=== PATIENT | male | born 1935 | race Caucasian/White ===

== ENCOUNTER 2023-07-11 09:03 | Outpatient (CLI) | payer MEDICARE, BC, SELFPAY | END 2023-07-11 09:04 | disposition home or self-care (01) | LOC: AMB 07-12 11:31 | PROVIDERS: Visit Provider Family Medicine | DX: R41.82 Altered mental status, unspecified (principal); R53.1 Weakness; I10 Essential (primary) hypertension | CPT/HCPCS: A0425; A0427; A0428 ==

== ENCOUNTER 2023-07-11 09:44 | Emergency (ER) | payer MEDICARE, BC, SELFPAY ==
[2023-07-11] VITALS (20 sets, daily range): BP systolic 98–184; BP diastolic 66–123; PULSE 57–69; RESP 14; TEMP 36.1; O2SAT 94–100; BMI 24.8
--- NOTE | 2023-07-11 09:38 | ED.FALL ---
HPI - Fall General Time Seen by Provider: 09:38 Date Seen: 07/11/23 Chief Complaint: Fall/Minor Trauma Stated Complaint: Fall Source: patient, EMS and RN notes reviewed Mode of arrival: EMS Limitations: no limitations History of Present Illness HPI Narrative: This patient is an 87-year-old male brought in by EMS from [address] [place] [address] where he recently came in for fall. Patient does not remember any reason for the fall, states he woke up against the wall and does not remember events. Staff found him down at 5:00 a.m. this morning. He was sent later because they found his pulse to be low in the 30s. Denied any injury to staff after the fall, they did not find any injury this morning. EMS in route on their intake found no pertinent positives for any injury. There was question of loss of consciousness with the fall but he has been at his baseline reportedly. He is denying any pain anywhere, was able to give EMS his prior address where he lived at before going in to the retirement. He was hospitalized [id number] at [facility] for falls, delirium/change in mental status. He was reportedly admitted to the hospital for foot pain and falls, neuro imaging and x-ray imaging were all negative. Looking at his records, he has longstanding bilateral foot pain, evaluation with Neurology in October 2021 thought to be neuropathic pain. He does have underlying restless leg syndrome. 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 He states he was put in the hospital for hypertension. Patient does have underlying Parkinson's disease. He has also had hypertension, history of heart failure with preserved ejection fraction. MD complaint: fall Related Data Home Medications Medication Instructions Recorded Confirmed ascorbic acid (vitamin C) 500 mg 500 mg PO DAILY 07/11/23 07/11/23 chewable tablet (Acerola C) atorvastatin 40 mg tablet 40 mg PO DAILY 07/11/23 07/11/23 carbidopa 25 mg-levodopa 100 mg 2.5 tab PO 3XW 07/11/23 07/11/23 tablet carbidopa ER 50 mg-levodopa 200 mg 1 tab PO QPM 07/11/23 07/11/23 tablet,extended release cholecalciferol (vitamin D3) 10 10 mcg PO DAILY 07/11/23 07/11/23 mcg (400 unit) capsule duloxetine 30 mg capsule,delayed 30 mg PO DAILY 07/11/23 07/11/23 release erythromycin 5 mg/gram (0.5 %) eye 1 applic ophthalmic (eye) QPM 07/11/23 07/11/23 ointment loratadine 10 mg tablet 10 mg PO DAILY 07/11/23 07/11/23 (Allerclear) losartan 25 mg tablet 25 mg PO DAILY 07/11/23 07/11/23 metoprolol succinate 25 mg 25 mg PO DAILY 07/11/23 07/11/23 tablet,extended release 24 hr nitroglycerin 0.4 mg sublingual 0.4 mg sublingual 07/11/23 tablet pramipexole 0.5 mg tablet 0.5 mg PO QPM 07/11/23 07/11/23 pregabalin 25 mg capsule 25 mg PO DAILY 07/11/23 07/11/23 pregabalin 50 mg capsule 50 mg PO QPM 07/11/23 07/11/23 spironolactone 25 mg tablet 25 mg PO DAILY 07/11/23 07/11/23 torsemide 10 mg tablet 5 mg PO DAILY 07/11/23 07/11/23 Allergies Allergy/AdvReac Type Severity Reaction Status Date / Time No Known Drug Allergies Allergy Verified 07/11/23 09:46 Review of Systems Status of ROS: Reports: 6 or more systems reviewed and unremarkable except as noted in History and below [facility] Social History service: Yes Exam Const: Vital Signs, click to edit/add: Vital Signs - 24 hr 07/11/23 09:39 07/11/23 09:39 07/11/23 10:11 Temperature 96.9 F L Pulse Rate 63 Pulse Rate [Apical ] 69 Respiratory Rate 14 Blood Pressure Blood Pressure [Ri ght Upper Arm] 184/110 H Pulse Oximetry 100 100 98 Oxygen Delivery Me thod Room Air 07/11/23 10:12 07/11/23 10:15 07/11/23 10:22 Temperature Pulse Rate 61 68 63 Pulse Rate [Apical ] Respiratory Rate Blood Pressure 167/95 H 159/102 H Blood Pressure [Ri ght Upper Arm] Pulse Oximetry 98 100 98 Oxygen Delivery Me thod 07/11/23 10:32 07/11/23 10:42 07/11/23 10:52 Temperature Pulse Rate Pulse Rate [Apical ] Respiratory Rate Blood Pressure 168/108 H 171/105 H 169/102 H Blood Pressure [Ri ght Upper Arm] Pulse Oximetry Oxygen Delivery Me thod 07/11/23 11:02 07/11/23 11:12 07/11/23 11:21 Temperature Pulse Rate Pulse Rate [Apical ] Respiratory Rate Blood Pressure 164/106 H 126/85 98/66 Blood Pressure [Ri ght Upper Arm] Pulse Oximetry Oxygen Delivery Me thod 07/11/23 11:32 07/11/23 11:42 07/11/23 11:43 Temperature Pulse Rate 62 62 Pulse Rate [Apical ] Respiratory Rate Blood Pressure 149/81 H 163/97 H Blood Pressure [Ri ght Upper Arm] Pulse Oximetry 99 100 Oxygen Delivery Me thod 07/11/23 11:45 Temperature Pulse Rate 57 L Pulse Rate [Apical ] Respiratory Rate Blood Pressure Blood Pressure [Ri ght Upper Arm] Pulse Oximetry 98 Oxygen Delivery Me thod 87-year-old male is alert, interactive, no apparent distress. Conjugate gaze, face is atraumatic. Speech is somewhat slow. This would not be inconsistent with what I would expect for Parkinson's. He has a masked face. With assistance, am able to sit him up, no midline tenderness of his neck or back, does have kyphosis. Lungs are clear, good air entry, no wheezing or crackles. CV with some ectopy but regular, no significant murmur, normal S1 and S2. No chest wall tenderness, abdomen is soft, non distended, nontender, no organomegaly. Has an abrasion on his right arm that looks to be old and somewhat scabbed, does not appear new. I do not see any acute wounds on arms or legs. Exam is nonfocal, no localized weakness. See no tremors her baseline at this time. See on the ekg monitor that is already been placed that he has a wide complex appearing QRS. Documenting provider has reviewed patient's vital signs: yes Course Course ED Course: Will obtain head and neck imaging, chest x-ray to ensure no acute pathology. This sounds like it is a Parkinson's patient that is at risk for falls. Details are not known in there was question of loss of consciousness. He is not on blood thinners but will proceed with head imaging. Will get complement of labs, have him on cardiac monitoring and pulse oximetry here. Will get an EKG. Insure no acute metabolic or causative etiology for the fall. Reevaluation(s) Time of Reevaluation #1: 11:58 Reevaluation #1: Patient's and family members are present. Reviewed with him that the head CT, cervical spine CT and labs are all reassuring. No acute changes. He obviously has some degenerative changes on the cervical spine, degenerative changes on his head CT. The retirement got a reported pulse of 39 or 38 per his daughter. That is why he was sent. We have seen no evidence of any significant bradycardia. He does go into the upper 50s but there is nothing slower than that while he has been monitored here over the last few hours. They would be interested in doing a Holter monitor which I can see if Radiology can get set up. His describes probable left bundle branch block but she is not definitive. I did contact pam hood RN in [place] triage center. She is able to confirm that he did have left bundle-branch block on an EKG from March of this year at [place]. They wonder if he can continue with physical therapy. He certainly can. We did discuss that he has a right posterior 4th rib fracture on his chest x-ray. He has had no complaints of pain here today when you ask him, same for EMS. He had falls last week it is possible that it could have been from that fall. Family does not believe he had a chest x-ray at [place]. He did not have any pain when I palpated over his back earlier. Right now when I am with him, he states he has pain throughout the whole right back when I palpate on the chest wall. Right after that I ask him if he has pain anywhere when he is resting and he states Stewart absolutely not. They have noted some lability with his blood pressures while here, reviewed with them that is not something that needs to be emergently dealt with. We have seen nothing that is requiring any emergent intervention. Daughter notes that he has been talking to them about having a vivid dream, thinking he was home. They think he may have possibly had some dream enactment. Would have them discuss this with his neurologist as this is out of the scope of the ED. this time, plan is to have him go back to the retirement with Holter monitoring. Return for further issues. Vital Signs Vital signs: Initial Vital Signs Temperature 96.9 F L 07/11/23 09:39 Temperature Source Temporal Artery Scan 07/11/23 09:39 Pulse Rate 69 07/11/23 09:39 Respiratory Rate 14 07/11/23 09:39 Blood Pressure 184/110 H 07/11/23 09:39 Blood Pressure Mean 134 H 07/11/23 09:39 Pulse Oximetry 100 07/11/23 09:39 Oxygen Delivery Method Room Air 07/11/23 09:39 Vital Signs Temperature 96.9 F L 07/11/23 09:39 Pulse Rate 69 07/11/23 09:39 Respiratory Rate 14 07/11/23 09:39 Blood Pressure 184/110 H 07/11/23 09:39 Pulse Oximetry 100 07/11/23 09:39 Oxygen Delivery Method Room Air 07/11/23 09:39 Temperature 96.9 F L 07/11/23 09:39 Pulse Rate 57 L 07/11/23 11:45 Respiratory Rate 14 07/11/23 09:39 Blood Pressure 163/97 H 07/11/23 11:42 Pulse Oximetry 98 07/11/23 11:45 Oxygen Delivery Method Room Air 07/11/23 09:39 - Fall Lab Data Attestation: I reviewed the patient's lab results. Labs: Lab Results 07/11/23 07/11/23 Range/Units 09:40 09:45 WBC 7.90 (4.50-11.00) K/uL RBC 4.66 (4.30-5.90) m/uL Hgb 13.6 (13.5-17.5) gm/dL Hct 44.1 (37.0-53.0) % MCV 95 (80-100) fL MCH 29 (26-34) pg MCHC 31 L (32-36) gm/dL RDW Coeff of Lidya 12.6 (11.5-15.5) % Plt Count 218 (140-440) K/uL Neut % (Auto) 47.0 (42.0-72.0) % Lymph % (Auto) 39.9 (20-44) % Powell % (Auto) 9.5 (0.0-11.0) % Eos % (Auto) 3.0 (0.0-7.0) % Baso % (Auto) 0.5 (0.0-3.0) % Neut # (Auto) 3.71 (1.7-7.0) K/uL Lymph # (Auto) 3.15 H (0.90-2.90) K/uL Powell # (Auto) 0.80 (0.00-0.90) K/UL Eos # (Auto) 0.24 (0.00-0.50) K/uL Baso # (Auto) 0.04 (0.00-0.30) K/uL Abs Immat Gran (auto) 0.01 (0.00-0.30) K/uL Imm/Tot Granulo (auto) 0.1 % Sodium 139 (135-149) mmol/L Potassium 4.7 (3.6-5.1) mmol/L Chloride 103 (96-114) mmol/L Carbon Dioxide 28 (20-32) mmol/L Anion Gap 8 (7-15) mEq/L BUN 32 H (7-30) mg/dL Creatinine 1.0 (0.5-1.5) mg/dL Estimated Creat Clear 53.03 Estimated GFR 73 ml/min Glucose 93 (60-115) mg/dL Lactate 1.2 (0.5-1.9) mmol/L Calcium 9.1 (8.4-10.6) mg/dL Total Bilirubin 0.6 (0.1-1.5) mg/dL AST 40 H (12-35) U/L ALT 10 (4-50) U/L Alkaline Phosphatase 56 (40-150) U/L Troponin I 0.01 (0.01-0.04) ng/mL C-Reactive Protein < 0.5 L (0.5-1.0) mg/dL NT-Pro-B Natriuret Pep 3320 pg/mL Total Protein 7.2 (6.0-8.3) g/dL Albumin 4.2 (3.3-5.0) g/dL SARS-CoV-2 (PCR) Negative SARS-CoV-2 (Negative) Influenza Type A (PCR) Negative PCR FLU A (Negative) Influenza Type B (PCR) Negative PCR FLU B (Negative) RSV (PCR) Negative PCR RSV (Negative) Imaging Data Chest x-ray: Attestation: I have reviewed the pertinent imaging results. Radiologist's impression: Patient: EDI HIGGINS Facility:[facility] [place] Patient ID:?[id number] Site Patient ID:?[id number]. Site :?[id number] Study:?XRay Chest 1 VIEW-07/11/2023 10:10:08 AM Ordering Physician:Mone Bermudez Final Report: INDICATION: Fell. COMPARISON: None. TECHNIQUE: Single AP upright chest radiograph. FINDINGS: A fracture involving the right 4th posterior rib without any evidence of displacement ,probably acute. No pneumothorax or pleural effusion. Normal size cardiac silhouette. IMPRESSION: Nondisplaced fracture right 4th posterior rib. Dictated by Gi Elena MD @ 07/11/2023 10:18:44 AM (Electronic Signature) CT scan - head: Attestation: I have reviewed the pertinent imaging results. Radiologist's impression: Patient: [facility] Facility:?[facility] Patient ID:?[id number] Site Patient ID:?[id number]. Site :?[id number] Study:?CT Head W/O-07/11/2023 10:08:13 AM Ordering Physician:?Delmi Bermudez Final Report: INDICATION: FALL Technique: Non-contrast head CT scan. Findings: Diffuse decreased attenuation of the periventricular white matter which likely represents small vessel ischemic disease. No other abnormal foci of altered attenuation in the brain parenchyma. No midline shift or mass effect. No hydrocephalus. No abnormal extra-axial fluid collections. Atrophic changes of the brain parenchyma. No abnormalities identified in the visualized portions of the paranasal sinuses, skull, and scalp. Impression: No evidence of acute intracranial abnormalities. Please note that all CT scans at this facility use dose modulation, iterative reconstruction, and/or weight-based dosing when appropriate to reduce radiation dose to as low as reasonably achievable. Dictated by: Ayad Olson MD @ 07/11/2023 10:15:18 (Electronic Signature) CT cervical spine: Attestation: I have reviewed the pertinent imaging results. Radiologist's impression: Patient: [facility] Facility:?[facility] Patient ID:?[id number] Site Patient ID:?[id number]. Site :?[id number] Study:?CT Spine Cervical -07/11/2023 10:08:56 AM Ordering Physician:Mone Bermudez Final Report: INDICATION: Fall. TECHNIQUE: Noncontrast CT scan of the cervical spine with re-formatted images obtained. FINDINGS: No evidence of acute fracture or dislocation of the cervical spine. 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 Degenerative changes of the left temporomandibular joint. No other bony or soft tissue abnormalities identified. IMPRESSION: No evidence of acute fracture or dislocation of the cervical spine. Dictated by Ayad Olson MD @ 07/11/2023 10:19:38 AM Please note that all CT scans at this facility use dose modulation, iterative reconstruction, and/or weight-based dosing when appropriate to reduce radiation dose to as low as reasonably achievable. Dictated by: Ayad Olson MD @ 07/11/2023 10:19:48 (Electronic Signature) ECG Data Attestation: I personally reviewed and interpreted this ECG as follows: (Sinus rhythm with first-degree AV block, 66 beats per minute. Left bundle branch block.) ECG interpretation date: 07/11/23 ECG interpretation time: 10:06 Critical Care Time Critical Care Time Critical Care Time: No Discharge Plan Discharge Clinical Impression: Closed rib fracture, Bradycardia, Parkinson's disease, Fall Patient Disposition: Home w/ Parent or Adult Condition: Stable Instructions: Rib Fracture (ED), Bradycardia (ED) Additional Instructions: Patient was found to have a right 4th rib fracture on his chest x-ray today. This is not displaced. Clinically he was complaining of no pain. It is possible that this is not from a fall today but from before. Observe for complications or symptoms from this. Holter monitor was placed, no bradycardia was seen while he was with EMS or in the ER. Family will return the Holter monitor at the end of the 48 hour period of monitoring, it is to return back to the hospital here. Follow instructions. If there are further concerns or issues, recommend re-evaluation. Can continue with physical therapy/rehab. May want to consult with his Parkinson's neurologist in the near future if ongoing issues. Prescriptions: No Action ascorbic acid (vitamin C) [Acerola C] 500 mg tablet,chewable 500 mg PO DAILY atorvastatin 40 mg tablet 40 mg PO DAILY carbidopa-levodopa 50-200 mg tablet extended release 1 tab PO QPM cholecalciferol (vitamin D3) 10 mcg (400 unit) capsule 10 mcg PO DAILY erythromycin 5 mg/gram (0.5 %) ointment 1 applic ophthalmic (eye) QPM duloxetine 30 mg capsule,delayed release(DR/EC) 30 mg PO DAILY torsemide 10 mg tablet 5 mg PO DAILY spironolactone 25 mg tablet 25 mg PO DAILY pramipexole 0.5 mg tablet 0.5 mg PO QPM losartan 25 mg tablet 25 mg PO DAILY metoprolol succinate 25 mg tablet extended release 24 hr 25 mg PO DAILY pregabalin 25 mg capsule 25 mg PO DAILY pregabalin 50 mg capsule 50 mg PO QPM loratadine [Allerclear] 10 mg tablet 10 mg PO DAILY nitroglycerin 0.4 mg tablet, sublingual 0.4 mg sublingual carbidopa-levodopa 25-100 mg tablet 2.5 tab PO 3XW Follow Up/Referrals: Provider,Not a Local [Primary Care Provider] - Stand Alone Forms: [facility] Info Instructions
--- NOTE | 2023-07-11 09:39 | CRLHL7_ITS ---
For Patients: As a result of the Century Cures Act, medical imaging exams and procedure reports are released immediately into your electronic medical record. You may view this report before your referring provider. If you have questions, please contact your health care provider. INDICATION: FALL Technique: Non-contrast head CT scan. Findings: Diffuse decreased attenuation of the periventricular white matter which likely represents small vessel ischemic disease. No other abnormal foci of altered attenuation in the brain parenchyma. No midline shift or mass effect. No hydrocephalus. No abnormal extra-axial fluid collections. Atrophic changes of the brain parenchyma. No abnormalities identified in the visualized portions of the paranasal sinuses, skull, and scalp. Impression: No evidence of acute intracranial abnormalities. Please note that all CT scans at this facility use dose modulation, iterative reconstruction, and/or weight-based dosing when appropriate to reduce radiation dose to as low as reasonably achievable. Dictated by: Ayad Olson MD @ 07/11/2023 10:15:18 (Electronically Signed)
--- NOTE | 2023-07-11 09:39 | CRLHL7_ITS ---
For Patients: As a result of the Cures Act, medical imaging exams and procedure reports are released immediately into your electronic medical record. You may view this report before your referring provider. If you have questions, please contact your health care provider. INDICATION: Fell. COMPARISON: None. TECHNIQUE: Single AP upright chest radiograph. FINDINGS: A fracture involving the right 4th posterior rib without any evidence of displacement ,probably acute. No pneumothorax or pleural effusion. Normal size cardiac silhouette. IMPRESSION: Nondisplaced fracture right 4th posterior rib. Dictated by Gi Elena MD @ 07/11/2023 10:18:44 AM (Electronically Signed)
--- NOTE | 2023-07-11 09:39 | CRLHL7_ITS ---
For Patients: As a result of the Cures Act, medical imaging exams and procedure reports are released immediately into your electronic medical record. You may view this report before your referring provider. If you have questions, please contact your health care provider. INDICATION: Fall. TECHNIQUE: Noncontrast CT scan of the cervical spine with re-formatted images obtained. FINDINGS: No evidence of acute fracture or dislocation of the cervical spine. 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 Degenerative changes of the left temporomandibular joint. No other bony or soft tissue abnormalities identified. IMPRESSION: No evidence of acute fracture or dislocation of the cervical spine. Dictated by Ayad Olson MD @ 07/11/2023 10:19:38 AM Please note that all CT scans at this facility use dose modulation, iterative reconstruction, and/or weight-based dosing when appropriate to reduce radiation dose to as low as reasonably achievable. Dictated by: Ayad Olson MD @ 07/11/2023 10:19:48 (Electronically Signed)
[2023-07-11 09:47] LABS: Basophils Absolute Auto 0.04 K/uL (0.00-0.30); Basophils Percent Auto 0.5 % (0.0-3.0); Eosinophils Absolute Auto 0.24 K/uL (0.00-0.50); Hematocrit 44.1 % (37.0-53.0); Hemoglobin* 13.6 gm/dL (13.5-17.5); Immature Granulocytes Abs Auto 0.01 K/uL (0.00-0.30); Immature Granulocytes Pct Auto 0.1 %; Lymphocytes Absolute Auto 3.15 K/uL (0.90-2.90); Lymphocytes Percent Auto 39.9 % (20-44); Mean Corpuscular HGB Conc 31 gm/dL (32-36); Mean Corpuscular Hemoglobin 29 pg (26-34); Mean Corpuscular Volume 95 fL (80-100); Monocytes Percent Auto 9.5 % (0.0-11.0); Neutrophils Absolute Auto 3.71 K/uL (1.7-7.0); Platelet Count* 218 K/uL (140-440); RDW Coefficient of Variation % 12.6 % (11.5-15.5); Red Blood Count 4.66 m/uL (4.30-5.90)
[2023-07-11 09:50] LABS: Lactate* 1.2 mmol/L (0.5-1.9); Slide Review Reflex No
[2023-07-11 10:07] LABS: Albumin* 4.2 g/dL (3.3-5.0); Chloride* 103 mmol/L (96-114)
[2023-07-11 10:08] LABS: Potassium* 4.7 mmol/L (3.6-5.1); Sodium* 139 mmol/L (135-149)
[2023-07-11 10:10] LABS: Alkaline Phosphatase* 56 U/L (40-150); Anion Gap 8 mEq/L (7-15); Aspartate Amino Transferase* 40 U/L (12-35); Bilirubin Total* 0.6 mg/dL (0.1-1.5); Carbon Dioxide* 28 mmol/L (20-32); Est. Creatinine Clearance* 53.03; Estimated Glomerular Filt Rate 73 ml/min; Total Protein* 7.2 g/dL (6.0-8.3)
[2023-07-11 10:11] LABS: Alanine Aminotransferase* 10 U/L (4-50); Blood Urea Nitrogen* 32 mg/dL (7-30); Calcium* 9.1 mg/dL (8.4-10.6); Glucose* 93 mg/dL (60-115)
[2023-07-11 10:22] LABS: Troponin I* 0.01 ng/mL (0.01-0.04)
[2023-07-11 10:49] LABS: PCR FLU A Negative PCR FLU A (Negative); PCR FLU B Negative PCR FLU B (Negative); PCR RSV Negative PCR RSV (Negative); SARS PCR* Negative SARS-CoV-2 (Negative)
[2023-07-11 11:29] LABS: C Reactive Protein* < 0.5 mg/dL (0.5-1.0); NT Pro B Type NatriureticPept* 3320 pg/mL
--- NOTE | 2023-07-11 12:38 | ED.NURSE ---
Dispatch notified of discharge, awaiting available ambulance.
== END 2023-07-11 14:16 | disposition home or self-care (01) ==
PROVIDERS: Emergency Provider Family Medicine
DX: S22.31XA Fracture of one rib, right side, initial encounter for closed fracture (principal); R00.1 Bradycardia, unspecified; W19.XXXA Unspecified fall, initial encounter
CPT/HCPCS: 36415; 70450; 71045; 72125; 80053; 81001; 83605; 83880; 84484; 85025; 86140; 87631; 93005; 93225; 93226; 94761; 99284; 99285; 99291; G0390

== ENCOUNTER 2023-07-11 14:10 | Outpatient (CLI) | payer MEDICARE, BC, SELFPAY | END 2023-07-11 14:11 | disposition home or self-care (01) | LOC: AMB 07-12 11:41 | PROVIDERS: Visit Provider Family Medicine | DX: S22.39XD Fracture of one rib, unspecified side, subsequent encounter for fracture with routine healing (principal) | CPT/HCPCS: A0425; A0428 ==

== ENCOUNTER 2023-11-26 11:03 | Outpatient (CLI) | payer MEDICARE, BC, SELFPAY | END 2023-11-26 11:04 | disposition home or self-care (01) | LOC: AMB 12-11 15:21 | PROVIDERS: Visit Provider Family Medicine | DX: M79.651 Pain in right thigh (principal); L72.9 Follicular cyst of the skin and subcutaneous tissue, unspecified | CPT/HCPCS: A0425; A0427 ==

== ENCOUNTER 2023-11-26 11:25 | Emergency (ER) | payer MEDICARE, BC, OTHER, SELFPAY ==
[2023-11-26] VITALS (14 sets, daily range): BP systolic 131–163; BP diastolic 73–100; PULSE 62–69; RESP 16; TEMP 36.4; O2SAT 93–97; BMI 28.3
--- NOTE | 2023-11-26 12:01 | CT_ITS ---
Patient: EDI HIGGINS Facility:?[facility] Patient ID:?[id number] Site Patient ID:?[id number]. Site :?[id number] Study:?CT-Pelvis W/ 81CC [id number]/22/2024 1:26:24 PM Ordering Physician:Makeda Mcdaniel Final Report: INDICATION: Gluteal infection. TECHNIQUE: CT pelvis acquired with 81 cc Isovue 370 IV contrast. COMPARISON: None. FINDINGS: Pelvis: Focal area of phlegmonous inflammation involving the left gluteal region, measuring 3.3 x 4.8 x 4.6 centimeters (series , series ). No definite rim enhancement or subcutaneous emphysema. Prostatectomy. Mild circumferential wall thickening of the rectum. Otherwise, visualized bowel is unremarkable. Aortoiliac arterial calcifications. Bones: Degenerative changes. No acute displaced fractures. IMPRESSION: Focal area of phlegmonous inflammation involving the left gluteal region, measuring up to 4.8 centimeters. Constellation of findings are consistent with cellulitis and possible early fluid collection, although no definite rim enhancement. No subcutaneous emphysema to suggest necrotizing infection. Consider dedicated ultrasound to see if this is amenable for drainage. Mild circumferential wall thickening of the rectum, possibly related to posttreatment changes. Proctitis could have a similar appearance. Please note that all CT scans at this facility use dose modulation, iterative reconstruction, and/or weight-based dosing when appropriate to reduce radiation dose to as low as reasonably achievable. Dictated by Nahun Chua MD @ 11/26/2023 1:36:20 PM Signed by:?Nahun Chua MD @11/26/2023 1:36:20 PM (Electronic Signature)
[2023-11-26 12:52] LABS: Lactate* 0.8 mmol/L (0.5-1.9)
[2023-11-26 12:57] LABS: Basophils Absolute Auto 0.03 K/uL (0.00-0.30); Basophils Percent Auto 0.4 % (0.0-3.0); Eosinophils Absolute Auto 0.36 K/uL (0.00-0.50); Eosinophils Percent Auto 4.7 % (0.0-7.0); Hematocrit 32.4 % (37.0-53.0); Hemoglobin* 10.2 gm/dL (13.5-17.5); Immature Granulocytes Abs Auto 0.02 K/uL (0.00-0.30); Immature Granulocytes Pct Auto 0.3 %; Lymphocytes Absolute Auto 1.63 K/uL (0.90-2.90); Lymphocytes Percent Auto 21.3 % (20-44); Mean Corpuscular HGB Conc 32 gm/dL (32-36); Mean Corpuscular Hemoglobin 29 pg (26-34); Mean Corpuscular Volume 93 fL (80-100); Monocytes Percent Auto 9.6 % (0.0-11.0); Neutrophils Absolute Auto 4.87 K/uL (1.7-7.0); Neutrophils Percent Auto 63.7 % (42.0-72.0); Platelet Count* 353 K/uL (140-440); RDW Coefficient of Variation % 14.3 % (11.5-15.5); Red Blood Count 3.49 m/uL (4.30-5.90); White Blood Count* 7.64 K/uL (4.50-11.00)
[2023-11-26 13:00] LABS: Slide Review Reflex No
[2023-11-26 13:11] LABS: Chloride* 107 mmol/L (96-114); Sodium* 139 mmol/L (135-149)
[2023-11-26 13:12] LABS: Potassium* 3.6 mmol/L (3.6-5.1)
[2023-11-26 13:14] LABS: Creatinine* 0.7 mg/dL (0.5-1.5); Estimated Glomerular Filt Rate 90 ml/min
[2023-11-26 13:15] LABS: Anion Gap 8 mEq/L (7-15); Blood Urea Nitrogen* 20 mg/dL (7-30); Calcium* 8.6 mg/dL (8.4-10.6); Carbon Dioxide* 24 mmol/L (20-32); Glucose* 134 mg/dL (60-115)
[2023-11-26 13:18] LABS: C Reactive Protein* 4.2 mg/dL (0.5-1.0)
--- NOTE | 2023-11-26 15:14 | ED.GENADULT ---
HPI - General Adult General Date Seen: 11/26/23 Chief complaint: Skin/Abscess/Foreign Body Stated complaint: Cyst on buttock Time Seen by Provider: 11/26/23 11:30 Source: family, EMS and RN notes reviewed Mode of arrival: EMS Limitations: no limitations History of Present Illness HPI narrative: Patient is an 87-year-old male who lives at [address] [facility]. His is here with him today. He has apparently had a wound on his left gluteal area that they have been working on for a week and half for so, his says that they been trying to get it to drain. It is not clear to me with the been doing to trying get it to drain. He does have a history of a boil on his leg previously that it sounds like was I&D. He was started on doxycycline yesterday due to some developing redness. He does spend most of his time in the wheelchair or bed, his says the staff is supposed to get him up twice a day to walk-in but she is not sure that that actually happens reliably. He notes a little bit of pain in the area, nothing severe. No reported fevers or chills, vomiting or other illness. Related Data Home Medications Medication Instructions Recorded Confirmed ascorbic acid (vitamin C) 500 mg 500 mg PO DAILY 07/11/23 11/26/23 chewable tablet (Acerola C) atorvastatin 40 mg tablet 40 mg PO DAILY 07/11/23 11/26/23 carbidopa 25 mg-levodopa 100 mg 2.5 tab PO 3XW 07/11/23 11/26/23 tablet carbidopa ER 50 mg-levodopa 200 mg 1 tab PO QPM 07/11/23 11/26/23 tablet,extended release cholecalciferol (vitamin D3) 10 10 mcg PO DAILY 07/11/23 11/26/23 mcg (400 unit) capsule duloxetine 30 mg capsule,delayed 30 mg PO DAILY 07/11/23 11/26/23 release erythromycin 5 mg/gram (0.5 %) eye 1 applic ophthalmic (eye) QPM 07/11/23 11/26/23 ointment loratadine 10 mg tablet 10 mg PO DAILY 07/11/23 11/26/23 (Allerclear) nitroglycerin 0.4 mg sublingual 0.4 mg sublingual PRN 07/11/23 11/26/23 tablet pramipexole 0.5 mg tablet 0.5 mg PO QPM 07/11/23 11/26/23 pregabalin 25 mg capsule 25 mg PO DAILY 07/11/23 11/26/23 pregabalin 50 mg capsule 50 mg PO QPM 07/11/23 11/26/23 hydrocortisone 2.5 % topical cream 1 applic CA QID PRN 11/26/23 11/26/23 with perineal applicator hydrocortisone acetate 25 mg 25 mg CA BID 11/26/23 11/26/23 rectal suppository lidocaine-prilocaine 2.5 %-2.5 % 1 applic topical PRN pain 11/26/23 11/26/23 topical cream Allergies Allergy/AdvReac Type Severity Reaction Status Date / Time No Known Drug Allergies Allergy Verified 11/26/23 11:35 Review of Systems Status of ROS: Reports: 10 or more systems reviewed and unremarkable except as noted in History and below [facility] Social History service: Yes Exam Narrative: Exam Narrative: Vital signs as noted above. In general, an alert, nontoxic elderly male. Appears comfortable. Head: Normocephalic, atraumatic. Eyes: Pupils are equal reactive. Extraocular movements are full. Conjunctivae are normal. ENT: Mucous membranes are moist. Throat is normal. Neck: Supple without lymphadenopathy. Heart: Regular rate and rhythm. No murmur or rub. Lungs: Clear bilaterally. No increased work of breathing, crackles or wheezes. Abdomen: Soft and nontender. No organomegaly. Back: Over the medial aspect of the left gluteal region there is an area of erythema, with an ulcer and fibrinous exudate. There is some surrounding erythema and induration. There is no fluctuance. Does not appear to track toward the perianal area. Tender to palpation. Extremities: Well perfused. No edema. No calf tenderness. Pulses intact. Neurologic: Patient is alert and oriented to person and place. Speech is fluent. Face is symmetric. Moves all extremities equally. Affect: Normal. Skin: Warm and dry. Well perfused. Const: Vital Signs, click to edit/add: Vital Signs - 24 hr 11/26/23 11:35 11/26/23 12:13 11/26/23 12:15 Temperature 97.5 F L Pulse Rate 63 65 Pulse Rate [Pulse Oximeter] 64 Respiratory Rate 16 Blood Pressure Blood Pressure [Le ft Upper Arm] 153/90 H Pulse Oximetry 95 94 94 Oxygen Delivery Me thod Room Air 11/26/23 12:30 11/26/23 12:32 11/26/23 12:45 Temperature Pulse Rate 67 69 67 Pulse Rate [Pulse Oximeter] Respiratory Rate Blood Pressure 131/73 Blood Pressure [Le ft Upper Arm] Pulse Oximetry 94 94 93 Oxygen Delivery Me thod Documenting provider has reviewed patient's vital signs: yes Course Course ED Course: I checked labs which are reassuring, white blood cell count is normal, hemoglobin is 10.2. Metabolic panel is unremarkable. Lactate is 0.8, CRP is mildly elevated at 4.2. Overall exam was more suggestive of mild cellulitis with induration, I did not feel an obvious abscess but elected to do CT scan to rule out abscess or any communication with the rectum. By my review, I do not see evidence of abscess. Radiology read as follows:FINDINGS: Pelvis: Focal area of phlegmonous inflammation involving the left gluteal region, measuring 3.3 x 4.8 x 4.6 centimeters (series /, series ). No definite rim enhancement or subcutaneous emphysema. Prostatectomy. Mild circumferential wall thickening of the rectum. Otherwise, visualized bowel is unremarkable. Aortoiliac arterial calcifications. Bones: Degenerative changes. No acute displaced fractures. IMPRESSION: Focal area of phlegmonous inflammation involving the left gluteal region, measuring up to 4.8 centimeters. Constellation of findings are consistent with cellulitis and possible early fluid collection, although no definite rim enhancement. No subcutaneous emphysema to suggest necrotizing infection. Consider dedicated ultrasound to see if this is amenable for drainage. Mild circumferential wall thickening of the rectum, possibly related to posttreatment changes. Proctitis could have a similar appearance. I do not have concern for proctitis in this patient. I did consult briefly with General surgery. Dr. Burciaga came and saw the patient as well, I debrided some of that exudate, and apply dressing as recommended by Dr. Burciaga; Betadine followed by Adaptic then Mepilex. Recommend daily dressing changes at the assisted, address pressure ulcer per protocol, wound care clinic follow-up requested. Continue antibiotic. Return for worsening such as high fevers, chills, significant worsening redness or swelling. Vital Signs Vital signs: Initial Vital Signs Temperature 97.5 F L 11/26/23 11:35 Temperature Source Temporal Artery Scan 11/26/23 11:35 Pulse Rate 64 11/26/23 11:35 Respiratory Rate 16 11/26/23 11:35 Blood Pressure 153/90 H 11/26/23 11:35 Blood Pressure Mean 111 H 11/26/23 11:35 Blood Pressure Position Semi-Fowlers 11/26/23 11:35 Pulse Oximetry 95 11/26/23 11:35 Oxygen Delivery Method Room Air 11/26/23 11:35 Vital Signs Temperature 97.5 F L 11/26/23 11:35 Pulse Rate 64 11/26/23 11:35 Respiratory Rate 16 11/26/23 11:35 Blood Pressure 153/90 H 11/26/23 11:35 Pulse Oximetry 95 11/26/23 11:35 Oxygen Delivery Method Room Air 11/26/23 11:35 Temperature 97.5 F L 11/26/23 11:35 Pulse Rate 67 11/26/23 12:45 Respiratory Rate 16 11/26/23 11:35 Blood Pressure 131/73 11/26/23 12:32 Pulse Oximetry 93 11/26/23 12:45 Oxygen Delivery Method Room Air 11/26/23 11:35 Medical Decision Making Lab Data Labs: Lab Results 11/26/23 Range/Units 12:43 WBC 7.64 (4.50-11.00) K/uL RBC 3.49 L (4.30-5.90) m/uL Hgb 10.2 L (13.5-17.5) gm/dL Hct 32.4 L (37.0-53.0) % MCV 93 (80-100) fL MCH 29 (26-34) pg MCHC 32 (32-36) gm/dL RDW Coeff of Lidya 14.3 (11.5-15.5) % Plt Count 353 (140-440) K/uL Neut % (Auto) 63.7 (42.0-72.0) % Lymph % (Auto) 21.3 (20-44) % [place] % (Auto) 9.6 (0.0-11.0) % Eos % (Auto) 4.7 (0.0-7.0) % Baso % (Auto) 0.4 (0.0-3.0) % Neut # (Auto) 4.87 (1.7-7.0) K/uL Lymph # (Auto) 1.63 (0.90-2.90) K/uL [place] # (Auto) 0.70 (0.00-0.90) K/UL Eos # (Auto) 0.36 (0.00-0.50) K/uL Baso # (Auto) 0.03 (0.00-0.30) K/uL Abs Immat Gran (auto) 0.02 (0.00-0.30) K/uL Imm/Tot Granulo (auto) 0.3 % Sodium 139 (135-149) mmol/L Potassium 3.6 (3.6-5.1) mmol/L Chloride 107 (96-114) mmol/L Carbon Dioxide 24 (20-32) mmol/L Anion Gap 8 (7-15) mEq/L BUN 20 (7-30) mg/dL Creatinine 0.7 (0.5-1.5) mg/dL Estimated Creat Clear 44.40 Estimated GFR 90 ml/min Glucose 134 H (60-115) mg/dL Lactate 0.8 (0.5-1.9) mmol/L Calcium 8.6 (8.4-10.6) mg/dL C-Reactive Protein 4.2 H (0.5-1.0) mg/dL Discharge Plan Discharge Clinical Impression: Cellulitis, Pressure ulcer Patient Disposition: [facility] Condition: Stable Instructions: Cellulitis (ED), Pressure Injury (ED) Additional Instructions: Dressing changes as recommended. Continue antibiotic. Wound care follow-up. For significant changes in redness, new symptoms such as fever chills, return for re-evaluation. Prescriptions: No Action ascorbic acid (vitamin C) [Acerola C] 500 mg tablet,chewable 500 mg PO DAILY atorvastatin 40 mg tablet 40 mg PO DAILY carbidopa-levodopa 50-200 mg tablet extended release 1 tab PO QPM cholecalciferol (vitamin D3) 10 mcg (400 unit) capsule 10 mcg PO DAILY erythromycin 5 mg/gram (0.5 %) ointment 1 applic ophthalmic (eye) QPM duloxetine 30 mg capsule,delayed release(DR/EC) 30 mg PO DAILY pramipexole 0.5 mg tablet 0.5 mg PO QPM pregabalin 25 mg capsule 25 mg PO DAILY pregabalin 50 mg capsule 50 mg PO QPM loratadine [Allerclear] 10 mg tablet 10 mg PO DAILY nitroglycerin 0.4 mg tablet, sublingual 0.4 mg sublingual PRN carbidopa-levodopa 25-100 mg tablet 2.5 tab PO 3XW lidocaine-prilocaine 2.5-2.5 % cream 1 applic topical PRN hydrocortisone acetate 25 mg suppository 25 mg CA BID hydrocortisone 2.5 % cream with perineal applicator 1 applic CA QID PRN Stand Alone Forms: [facility] Info Instructions
== END 2023-11-26 15:18 | disposition home or self-care (01) ==
PROVIDERS: Emergency Provider Emergency Medicine
DX: L89.329 Pressure ulcer of left buttock, unspecified stage (principal); L03.317 Cellulitis of buttock
CPT/HCPCS: 36415; 72193; 80048; 83605; 85025; 86140; 87040; 99284; 99285; Q9967

== ENCOUNTER 2023-12-15 07:53 | Outpatient (CLI) | payer MEDICARE, BC, SELFPAY | END 2023-12-15 07:54 | disposition home or self-care (01) | LOC: WOUND 07:53 | PROVIDERS: Visit Provider Nurse Practitioner Family | DX: L89.323 Pressure ulcer of left buttock, stage 3 (principal); G20.C Parkinsonism, unspecified | CPT/HCPCS: 11042; G0463 ==

== ENCOUNTER 2023-12-22 09:57 | Outpatient (CLI) | payer MEDICARE, BC, SELFPAY | END 2023-12-22 09:58 | disposition home or self-care (01) | LOC: WOUND 09:57 | PROVIDERS: Visit Provider Nurse Practitioner Family | DX: L89.153 Pressure ulcer of sacral region, stage 3 (principal); G20.C Parkinsonism, unspecified | CPT/HCPCS: 11042 ==

== ENCOUNTER 2024-01-05 14:21 | Outpatient (CLI) | payer MEDICARE, BC, SELFPAY | END 2024-01-05 14:22 | disposition home or self-care (01) | LOC: WOUND 14:21 | PROVIDERS: Visit Provider Nurse Practitioner Family | DX: L89.153 Pressure ulcer of sacral region, stage 3 (principal) | CPT/HCPCS: 97602 ==

== ENCOUNTER 2024-01-19 13:50 | Outpatient (CLI) | payer MEDICARE, BC, SELFPAY ==
--- OUTSIDE RECORDS SUMMARY | 2024-01-19 13:52 | XMS_ITS | Clinical Summary ---
Author Name Unknown Organization [facility] Address [address] [place] [address] Care Team Providers Care Claims Clerk Name Role Phone Katelyn Reyes M.D. Primary Care Provider [phone] Source Comments Patient records contain information from all sites at [facility]. For routine questions regarding patient records, call [phone] during business hours, M-F 8:00 AM - 5:00 PM Central Time. Record requests for emergency care only can be directed to [phone] at any time.[facility] Allergies No known active allergies Medications Medication Sig Dispensed Refills Start Date End Date Status acetaminophen (TYLENOL) 500 mg tablet Take 1-2 tablets by mouth every 6 (six) hours as needed for pain. pain 02/17/2014 Active cholecalciferol (VITAMIN D3) 1,000 Unit tablet Take 1 tablet by mouth as directed. takes five days a week 06/30/2017 Active multivitamin tablet Take 1 tablet by mouth as directed. takes fives a week 06/30/2017 Active ascorbic acid, vitamin C, (VITAMIN C) 500 mg tablet Take 1 tablet by mouth as directed. takes five days a week 06/30/2017 Active ammonium lactate (AMLACTIN) 12 % cream Apply 1 application topically 2 (two) times a day. Apply to feet. 385 g 04/19/2021 Active Additional Information Patient taking differently:1 application. topicalAs needed, Apply to feet., Reported on 01/27/2023 methyl salicylate-menth ol 15-10 % cream Apply 1 application topically 4 (four) times a day as needed for muscle/joint pain or muscle spasms. Apply to legs. 85 g 04/19/2021 Active psyllium (METAMUCIL) 0.52 gram capsule Take 2 capsules (1.04 g total) by mouth daily. 60 capsule 04/20/2021 Active loratadine (CLARITIN) 10 mg tabletIndication s:Rash Take 1 tablet (10 mg total) by mouth 2 (two) times a day. 60 tablet 5 11/06/2021 Active triamcinolone (KENALOG) 0.1 % creamIndications :Rash Apply to affected area 1-2 times daily as needed. 45 g 3 11/25/2021 Active erythromycin (ROMYCIN) 5 mg/gram (0.5 %) ophthalmic ointment 1 cm as needed. 1 strip daily to left eye 02/25/2022 Active carbidopa-levodo pa (SINEMET) 25-100 mg per tabletIndication s:Parkinsonism (HCC) TAKE TWO AND ONE HALF TABLETS BY MOUTH THREE TIMES A DAY 540 tablet 3 09/26/2022 Active spironolactone (ALDACTONE) 25 mg tablet TAKE ONE TABLET BY MOUTH EVERY DAY 30 tablet 5 10/08/2022 Active nitroglycerin (NITROSTAT) 0.[address] 1 tablet (0.4 mg total) under the tongue every 5 (five) minutes as needed for chest pain. May repeat every 5 minutes for up to 3 doses 100 tablet 11 11/11/2022 Active pramipexole (MIRAPEX) 0.5 mg tabletIndication s:Sleep Related Leg Cramps Take 1 tablet (0.5 mg total) by mouth at bedtime. 90 tablet 3 12/11/2022 Active amitriptyline 2%,clonidine 0.2%,gabapentin 5%,ketamine 5%,lidocaine 5%-lipoderm Apply topically daily. Apply to feet for neuropathy. ([facility]) Active hydrocortisone (ANUSOL-HC) 2.5 % rectal creamIndications :Hemorrhoids Insert 1 application into the rectum 4 (four) times a day as needed for hemorrhoids (rectal discomfort). Apply to affected areas 30 g 12/11/2022 Active lidocaine-priloc olivier (EMLA) 2.5-2.5 % creamIndications :Hemorrhoids Apply 1 application topically as needed for pain. Apply to hemorrhoids as needed 30 g 1 12/11/2022 Active carbidopa-levodo pa (SINEMET CR) 50-200 mg per ER tabletIndication s:Parkinsonism (HCC) Take 1 tablet by mouth at bedtime. 90 tablet 3 12/11/2022 Active torsemide (DEMADEX) 10 mg tabletIndication s:Chronic Systolic (Congestive) Heart Failure (HCC) TAKE ONE-HALF TABLET BY MOUTH EVERY DAY 90 tablet 3 12/23/2022 Active metoprolol succinate (TOPROL-XL) 25 mg 24 hr tabletIndication s:Coronary Artery Disease With Stable Angina (HCC),Ischemic Heart Chronic Disease,Congesti ve Heart Failure (HCC) Take 1 tablet (25 mg total) by mouth daily. Do not crush or chew. 90 tablet 3 03/06/2023 Active atorvastatin (LIPITOR) 40 mg tabletIndication s:Coronary Artery Disease With Stable Angina (HCC),Ischemic Heart Chronic Disease,Congesti ve Heart Failure (HCC) TAKE ONE TABLET BY MOUTH EVERY DAY 90 tablet 3 03/11/2023 Active hydrocortisone (ANUSOL-HC) 25 mg suppositoryIndic ations:Hemorrhoi ds Insert 1 suppository (25 mg total) into the rectum 2 (two) times a day as needed for hemorrhoids (for hemorrhoids). 90 suppository 07/07/2023 Active DULoxetine (CYMBALTA) [address] capsule Take 1 capsule (30 mg total) by mouth daily. 90 capsule 07/08/2023 Active losartan (COZAAR) 25 mg tablet Take 1 tablet (25 mg total) by mouth daily. 90 tablet 3 07/07/2023 Active pregabalin (LYRICA) 25 mg capsuleIndicatio ns:Sleep Related Leg Cramps Take 1 capsule (25 mg total) by mouth daily. 90 capsule 07/07/2023 Active pregabalin (LYRICA) 50 mg capsuleIndicatio ns:Sleep Related Leg Cramps Take 1 capsule (50 mg total) by mouth at bedtime. 90 capsule 07/07/2023 Active Active Problems Problem Noted Date Diagnosed Date Delirium (not otherwise specified) 07/05/2023 Change Mental Status 07/03/2023 Repeated Falls 07/02/2023 Overview: As above. Pain Ankle Right 07/02/2023 Overview: As above. Pain Hip Right 07/02/2023 Overview: As above. Spells Neurological 04/03/2023 Overview: 03/30/2023 - Spouse describes 5 episodes of the patient staring off and being non responsive. They've occurred more frequently overt the last 2 months. The current thought is it's related to orthostatic hypotension - EEG 03/18/2023 negative. No known hx of seizures. No concern for withdrawal. - MRI brain pending. Last Assessment & Plan: Neurology updated regarding spells. At this point I have a low suspicion for a seizure disorder as the history for symptomatic orthostatic hypotension feels compelling (most recent spell happened with SBP 70) Osteoporosis 12/11/2022 History Of Falling 04/25/2021 Overview: 12/11/22 - Has had increased accidents with worsening PD over the last 9 months. No major accidents. - Progressive gait instability and falls; first noted 2015 - With Sinemet, PT, and a walker specifically designed for Parkinson's DIsease he had significant improvement - Uses a bedpan at night with success. Also uses depends. Has difficulty getting to the bathroom in time Last Assessment & Plan: No changes today Very mild orthostatic symptoms, is optimized on Sinemet, is euvolemic, has good support and gait aids, [facility], and has good adherence to safety measures. From my perspective he is as optimized as possible right now. Advanced Care Planning 04/25/2021 Overview: 12/11/2022 - Reaffirmed goals described below 08/16/2021: DNR/DNI. Patient was very clear in his goals of care that he would not want intubation or chest compressions. He clarified that he would want treatment for potentially reversible or modifiable diseases but would not want invasive potentially injurious interventions such as intubation or impressions. Sleep Related Leg Cramps 12/25/2020 Overview: 12/11/2022 - In the past improved with increased Sinemet - Was a significant issue during March 2021 hospitalization. Sinemet was decreased because his team thought it could have contributed to his medication-induced vasovagal syncope. - Tx Pregabalin 25 mg qAM and 50 mg qHS, pramipexole 0.25 mg Last Assessment & Plan: No changes today Chronic Systolic (Congestive) Heart Failure 05/07 Overview: 03/30/23 - Tx: metoprolol-XL 25 mg daily, torsemide 10 mg daily - Mild peripheral edema on exam 12/11/22 - Symptoms stable. Is euvolemic. Weight remains stable day to day. Background - Related to ischemic heart disease - EF 55% as of 03/22/2021 EF was ~30% in 2019 and December 2020. - 03/22/2021 TTE: No significant valvular disease. Mild generalized left ventricular hypokinesis. Normal RV systolic function. Estimated RVSP 35. No LVOT or effusion. - Last HF exacerbation was in late 2020 - Previously was on Entresto but this was stopped in March 2021 because of orthostatic hypotension Last Assessment & Plan: Had patient hold losartan and torsemide last week following symptomatic orthostatic hypotension. This is a tough situation as similar situation happened in 2020 where patient had orthostatic symptoms, his GDMT was backed off, and he developed a HF exacerbation. Since then his PD has progressed and he has become more deconditioned. The patient and his spouse are very familiar with symptoms of worsening HF. His peripheral edema today is more prominent compared to the last time I saw him. My plan is to stay off of losartan and spironolactone for the next 2 weeks and reassess over the phone. At that point could consider restarting losartan at lower dose. Would like to repeat exam in clinic in about 1 month. Hypotension Orthostatic 07/08/2019 Overview: 03/30/2023 - Started to have worsening orthostatic hypotension with staring spells starting late January 2023. See note from Laisha Dinh from 03/06/2023 for great history. - In response we have decreased metoprolol succinate from 50 to 25 mg and stopped losartan and spironolactone after his BP was 70/42 w staring spekrystal on 03/26. - At baseline patient has excellent home support and has optimized non- pharmacologic measures History - Noted to be orthostatic on exam back in Jul 2019. Was thought to be contributing to falls at that time - During his transitional care stay in March/April 2021 he continued to deal with orthostasis when upright. Lisinopril stopped and metoprolol decreased. Midodrine later added but patient later developed HF exacerbation and HTN urgency so this was stopped. - By Oct 2021 his orthostatic symptoms were back at baseline and his GDMT was optimized. He remained stable for the next year. - Unable to wear compression stockings because of pain Last Assessment & Plan: No changes today Functional Incontinence Urinary 11/30/2018 Overview: 12/11/2022 - No changes today History - History of prostatectomy for prostate cancer - Voids about 1-2 times per night and uses bedpan with success 10/29/2021 - Given recent worsening mobility issues has been having more daytime incontinence and has been using depends. Patient feels urge that he needs to go but it's difficult for him to get to the bathroom in time Last Assessment & Plan: - Symptoms were previously well controlled in April. Will need to improve mobility if possible to improve symptoms. If this continues to be a significant issue could consider a condom cath in the future or see if OT/urology has any other suggestions for optimizing bathroom access at home. - Likely will get worse in the short term future as we still need to diurese ~8 L of fluid - Will follow closely Hypertension Essential Primary 11/30/2018 Overview: 03/30/2023 - BP generally labile 2/2 PD. Typically SBP 100-160 and DBP 40-90 throughout the day. DBP 40-90 as well. Since stopping losartan and spironolactone SBP tends to hover around 140 Last Assessment & Plan: No changes today Parkinsonism Unspecified 10/15/2018 Overview: The cause of this patient's fall appears to be secondary to the patient's longstanding parkinsonism in the context of an unfortunate accident. From the history and physical, there does not seem to a more concerning cause for this patient's recent falls, such as hypotension, syncope, neurological spells, infection, and such. Though this is reassuring, it is concerning that the patient has been largely immobile with persistent right ankle/hip pain in the context of increasing impulsivities and increasing demand for support from his at home. Objectively from my exam, the patient required his , son and myself to help the patient stand. It was very obvious that the patient was very unstable on his feet with a propensity to not bear weight on his RLE, and a hesitancy to move or walk on his own. I believe that this places the patient at a higher risk for further falls and clinical deterioration especially without appropriate support. Though there is not a life-threatening concern at this moment, there are a number of factors that would warrant further evaluation at the ED and possible admission to the hospital: more expedited evaluation and treatment for the ankle pain (as this has been regarded as a huge reason for the patient's immobility, pain, and debility); lack of physical support at home to help the patient's ; lack of resources that may be available in the [facility], which may not be immediate even with our social work support in the outpatient setting; and possible benefit with more closer observation and care from a multidisciplinary approach at the hospital. Given the complexity of the patient's case, a discussion was held with the patient's and son regarding further options of management. It was proposed that the patient either be seen at the hospital (for the reasons listed above) or taken home with further evaluation and workup which also would have been a reasonable choice IF there was adequate support at home. The family opted to take the patient to the ED for further evaluation at this time. I have called the ED referral line and informed them of Mr. Benton's arrival to their department, with general recommendations. Hx - Symptoms started in 2013 and included gait difficulty with difficulty turning, predisposition towards falls as well as shuffling. He also noticed coordination difficulty, slowness in day-to-day activities, impaired sense of smell, decrease in the volume of his voice, antecollis as well as the cramps. There is no history of dream enacting behaviors. He believes that his memory if anything has improved. - 2016: It was suspected that his gait difficulty may be multifactorial with a component of myelopathy with the disc at T6-7 being responsible and also perhaps a component of peripheral neuropathy. Neurosurgery recommended no Intervention - 2019: Postural instability with falls, decreased voice volume, slowness in day-to-day activities, decrease in the size of his handwriting and his exam shows evidence of rigidity as well as bradykinesia. Dr. Simon thought about repeating thoracic spine MRI as he had an upgoing L toe, but the remainder of findings were not consistent with myelopathy. - 03/2023: Symptoms have worsened overt the last [address] Simon. Last visit 01/22/2023. Tx: Sinemet (25-100 mg) 2.5 tablets TID. Sinemet CR 50-200 qHS. [facility] and Primary is Dr. Rich - Had significant decrease in falls and improvement in gait after Sinemet initiation Diagnosis Maintenance Updates Last Assessment & Plan: - Would recommend further evaluation and management at the the emergency department, with admission (at the ED's discretion) due to the concerns listed above. - Would recommend an XR of the right ankle and right hip. - Would involve physical therapy, occupational therapy, and social work/case management if the patient were to be admitted. Neuropathy Peripheral 04/08/2018 Overview: 03/30/2023 - See history below. No significant changes. Believed secondary to frostbite from many years ago. History Longstanding bilateral plantar surface of feet X years, first comments in the record here in 2006. Initially evaluated at [facility] with use of unknown oral medicine discontinued due to nightmares. Known pes cavus. -Prior negative evaluation (2015) - TSH, vitamin B12, and SPEP were negative. EMG was negative for large fiber peripheral neuropathy, 05/2016. Did note bilateral L5/S1 radiculopathy. Subsequent MRI showed disc protrusion in T6-7 interspace with moderate mass effect. Given his shuffling gait, left foot drop, and overall gait instability, he was evaluated in Neurology, who recommended further evaluation. Fat pad aspirate was negative for amyloidosis. He was referred to Neurosurgery in July 2016, who recommended observation. 10/2021 Neuro Eval: Recommended that neuropathic pain medications typically convert positive symptomatology into negative symptomatology and if he is skeptical that the Lyrica is helping it may not be unreasonable to discontinue. Patient has notable RLS and possible that Lyrica is helping with this so it has been continued for this reason Last Assessment & Plan: No changes today Coronary Artery Disease With Stable Angina 01/14 Overview: 03/30/23 - No active symptoms. Reports med compliance. Cannot exert very much given PD. - Tx: Metoprolol succinate XL 25 mg daily, ASA [address] daily, atorvastatin 40 mg daily, and nitro SL PRN Cath 06/07/2020 1. Mild coronary artery atherosclerosis 2. Severe tortuosity of right radial artery / R- subclavian Last Assessment & Plan: No changes today Metoprolol succinate recently decreased from 50 to 25 to help with orthostatic symptoms / spells Kyphosis Overview: 12/11/2022 - No changes today Previously has used a brace for his thoracic back pain and feels like it is well controlled with [id number] acetaminophen and lidocaine patches 10/29/2021 - Thoracic back pain does not seem to be an active issue or contributing to his worsening mobility Last Assessment & Plan: No interventions needed Resolved Problems Problem Noted Date Diagnosed Date Resolved Date Incontinence Fecal 10/29/2021 Overview: 10/28/2021 - Both patient and spouse gave vague history regarding timeline and onset. Most likely patient started having fecal incontinence within the last few months. Seems infrequent and is not getting progressively worse. - No saddle anesthesia, low back pain, rectal bleeding, anal pruritus, perianal skin irritation, mucus discharge - Patient concerned that he had hemorrhoid (had them in [place]) and started using preparation H - Incontinence happens infrequently. Normally has a planned BM daily. Skips a day 3-4 times per month. Normally does not strain and describes BM as [place] 3. Endorses frequent passage of gas. - Exam did not reveal evidence of rectal cancer, skin tags, perianal abscess, prolapsed internal hemorrhoids, fissures, or external hemorrhoids. Rectal tone normal and scant amount of feces present in rectal vault. Did not appreciate an rectal masses or blood on digital exam. 11/06/21 - No symptoms or accidents. Suspect this is much more of a non issue or functional in origin Last Assessment & Plan: No changes today Swelling Leg 10/02/2021 10/29/2021 Overview: The patient presents with a weight increase from 79.8kg to 86.7kg in the past month, and bilateral lower extremity swelling, penis/scrotal swelling, increased orthopnea, and increased dyspnea on exertion over the past two weeks. Patient/ note that they began noticing symptoms onset about one week prior to which have progressed through today. Patient denies any other constitutional symptoms or any episodes of pain or acute onset dyspnea in the same time frame. Patient has had a worse diet over the hol with increased amounts of sweets/salty food. His diuretic therapy was discontinued in March due to improvement in his LVEF at that time (55%), though he does have a history of HFrEF in the context of ischemic heart disease. He denies any recent symptoms of cold/flu like illness. Not currently sexually active after a prostate surgery several years ago. Patient denies any recent symptoms of light-headedness or any recent falls. Last Assessment & Plan: I am concerned for heart failure exacerbation in the context of worsened diet over season. I will obtain BMP at this time, start the patient on torsemide 10mg daily, and have him return in two weeks for re-assessment and repeat BMP. After patient has reached euvolemic state he should have repeat TTE to ensure he has not had worsening of cardiac function since March. I note that the patient has had recent struggle with orthostatic hypotension so we will not increase diuresis too rapidly at this point. Rash 09/07/2021 03/08/2022 Overview: Seen in [facility] on 09/02/21 for persistent itchy rash, primarily in axillary regions. Somewhat improved with oral cetirizine and topical steroids. No clear triggers, and patient and his have largely removed any products with fragrances or that could be causing this. Exam shows primarily a single confluent, slightly raised, red patch in the right axilla. He denies any new medications, dietary changes, exposures, recent illness (no nausea, vomiting, diarrhea, constipation, urinary symptoms, fevers, chills), no history of similar rash. Last Assessment & Plan: Increase loratadine to 10 mg BID Use triamcinolone on itchy areas on right arm and hand Will call in 1 week and reassess Hives 08/16/2021 10/29/2021 Overview: Last Assessment & Plan: Based on exam it does appear to be hives. 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 Really no clear etiology for his hives. Still in acute period. We will workup with CBC, CMP. I have advised him to start loratadine 1-2 tablets a day. I have also prescribed triamcinolone 0.1% cream. He understands to follow-up with any worsening of the rash. We will see him back in 2 weeks and persistence will consider workup for chronic urticaria. He does have a very mild eosinophilia and elevated monocyte count. If this does not resolve we will need to follow up with additional CBC and potentially parasite/infectious workup. Coronary Artery Disease With out Angina Pectoris 04/29/2021 10/29/2021 Pain Back Thoracic 04/24/2021 Overview: 04/25/21 The patient uses a brace for his thoracic back pain and feels like it is well controlled with [id number] acetaminophen and lidocaine patches. Does not report any significant issues regarding his history of left-sided knee or hip pain. Other Irritable Bowel Syndrome 04/17/2021 04/25/2021 Parkinsonism Unspecified 03/29/2021 Palliative Care 03/27/2021 04/24/2021 Syncope And Near Syncope 03/24/2021 Pain Chest 03/21/2021 04/24/2021 Insomnia 11/30/2018 10/29/2021 Overview: Multifactorial - discussed at 11/30/2018 visit. Peripheral neuropathy and nocturia inhibit full nights of sleep. Worsening anxiety recently (discontinuation of celexa Jun 2018, recent dx of Parkinsonism) is likely contributing as well. Anxiety 10/15/2018 10/29/2021 Overview: JEREMY 7 of 7 10/15/2018 - Previously on Celexa, discontinued 05/2018 for history of repeated falls 04/25/2021 - Denies symptoms of anxiety 10/28/2021 - No significant changes Last Assessment & Plan: Will add to history since 6 months without significant symptoms Edema Lower Extremity 10/15/20182020 Overview: Bilateral lower extremity edema for a few months, perhaps worsening over time when seen 10/15/2018 Hematuria 09/23/2018 04/24/2021 Overview: Negative gross hematuria cystoscopy exam 10/2018 Ischemic Heart Chronic Disease 01/13/2018 10/29/2021 Overview: TTE 03/22/2021 Final Impressions 1. Mildly enlarged left ventricular chamber size (by volumetrics). 2. Calculated 2-D biplane volumetric left ventricular ejection fraction 55 %. Visual estimate 50 % 3. Mild generalized left ventricular hypokinesis. 4. Normal right ventricular systolic function. 5. Estimated right ventricular systolic pressure 35 mmHg assuming right atrial pressure of 5 mmHg. 6. No hemodynamically significant valvular heart disease. 7. No left ventricular outflow tract obstruction. 8. Normal inferior vena cava size with normal inspiratory collapse (>50%). 9. No pericardial effusion. 10. Compared to the report of 12/19/2020 the following changes have occurred: LV EF has improved. Side by side comparison of images performed. 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 from Last 3 Months Immunizations Name Administration Dates Next Due HZV (ZOSTAVAX) 07/05/2013, 3,07/13/2012(Deferr ed: Other),12/17/2010 Influenza (IM) Preservative Free 07/25/2010,07/06 Influenza Split 07/27/2014, 3,08/05/2006,2003,07/05/2003,08/05/2002 Influenza TIV (IM) 07/04/2019,08/01/2015, 014 Influenza, Quadrivalent, Adj uvanted, Preservative Free 07/01/2022,07/10/2021,07/05/2020 Influenza, Seasonal, Injectable 10/14/19 13,08/10/2008,08/05/2006,2003,07/05/2003,08/05/2002 Influenza, Unspecified 07/01/2022,2020,07/05/2020,2011,06/26/2011,07/05/2010,07/05/2009,1 ,06/05/2007,08/05/2005, 004,08/05/2003,08/05/2002,08/05/2001, PCV13 08/14/2015 PPSV23(Discontinued) 10/29/2004,10/05/1999 Pneumococcal, Unspecified 02/23/2015(Def erred: Other),03/08/2013,08/05/1999,10/05/1998 RZV (SHINGRIX) 06/11/2018,01/14/2018 SARS-COV-2 (COVID-19) - PFIZ ER (Discontinued)(12 years or older) 08/16/2021,11/18/2020,10/28/2020 SARS-COV-2 (COVID-19) - PFIZ ER BIVALENT TS(Discontinued)(12 YEARS OR OLDER) 03/30/2023(Deferred: Patient Refused) SARS-COV-2 (COVID-19) - PFIZ ER TS(Discontinued)(12 years or older) 03/05/2022 Td (Adult), adsorbed 02/06/2013,07/13/20 12(Deferred: Other),11/06/2005,10/05/1995 Td Preservative Free (TENIVA C, DECAVAC) 04/05/2017,11/06/2005 Td, (Adult) Unspecified 11/05/2005,10/05,10/05/1995,1993 Tdap 12/22/2013,07/05/2013 Tetanus Toxoid, Adsorbed (discontinued) 04/05/2017 influenza high dose (65 year s or older) (PF) 07/08/2018,07/31/2017,07/14/2016,2014,07/11/2013,07/05/2013 influenza vaccine quad (FLUZONE/FLUARIX) (6 months and older)(PF) 07/27/2014 Family History Medical History Relation Name Comments Hypertension Brother Jorge Benton Prostate cancer Brother Jorge Benton Relation Name Status Comments Brother Jorge Isaac Serenity Social History Tobacco Use Types Packs/Day Years Used Date Smoking Tobacco: Never Passive Smoke Exposure: Never Smokeless Tobacco: Never Tobacco Cessation:Counseling Given: Not Answered Alcohol Use Standard Drinks/Week Comments Yes 2 (1 standard drink = 0.6 oz pur e alcohol) rarely Humiliation, Afraid, Rape, and Kick questionnair e Answer Date Recorded Within the last year, have y ou been afraid of your partner or ex-partner? No 12/11/2022 Within the last year, have y ou been humiliated or emotionally abused in other ways by your partner or ex-partner? No Within the last year, have y ou been kicked, hit, slapped, or otherwise physically hurt by your partner or ex-partner? No 12/11/2022 Within the last year, have y ou been raped or forced to have any kind of sexual activity by your partner or ex-partner? No 12/11/2022 Social Connection and Isolat ion Panel [NHANES] Answer Date Recorded In a typical week, how many times do you talk on the phone with family, friends, or neighbors? More than three times a week 12/11/2022 How often do you get togethe r with friends or relatives? Once a week 12/11/2022 How often do you attend [facility] or faith services? 1 to 4 times per year 12/11/2022 Active Member of Clubs or Organizations Not on f ile 12/11/2022 Attends Club or Organization Meetings Not on lexis e 12/11/2022 Marital Status Not on file 12/11/2022 AUDIT-C Answer Date Recorded Q1: How often do you have a drink containing alc ohol? Monthly or less 12/11/2022 Q2: How many drinks containi ng alcohol do you have on a typical day when you are drinking? 1 or 2 12/11/2022 Q3: How often do you have si x or more drinks on one occasion? Never 12/11/2022 Overall Financial Resource Strain (CARDIA) Answe r Date Recorded How hard is it for you to pa y for the very basics like food, housing, medical care, and heating? Not hard at all 12/11/2022 PHQ-2 Answer Date Recorded PHQ-2 Score 0 12/11/2022 [facility] [place] [facility] - Occupational Stress Questionnaire Answer Date Recorded Do you feel stress - tense, restless, nervous, or anxious, or unable to sleep at night because your mind is troubled all the time - these days? To some extent 12/11/2022 Exercise Vital Sign Answer Date Recorde d On average, how many days pe r week do you engage in moderate to strenuous exercise (like a brisk walk)? Patient declined On average, how many minutes do you engage in exercise at this level? 30 min 12/11/2022 Hunger Vital Sign Answer Date Recorded Within the past 12 months, y ou worried that your food would run out before you got the money to buy more. Often true 12/12/19 23 Within the past 12 months, t he food you bought just didn't last and you didn't have money to get more. Never true 12/11/2022 PRAPARE - Transportation Answer Date Re corded In the past 12 months, has l ack of transportation kept you from medical appointments or from getting medications? No 06/2023 In the past 12 months, has l ack of transportation kept you from meetings, work, or from getting things needed for daily living? No 12/11/2022 Housing Stability Vital Sign Answer Jude e Recorded In the last 12 months, was t here a time when you were not able to pay the mortgage or rent on time? Patient refused 12/12/19 23 Number of Places Lived in the Last Year Not on f ile 12/11/2022 In the last 12 months, was t here a time when you did not have a steady place to sleep or slept in a nursing home (including now)? No 12/11/2022 Depression Answer Date Recor ded PHQ-9 Total Score (max 27) 1 03/22 Nutrition Answer Date Recorded Nutrition: EVOO Fat Source No 12/11 On average, how many serving s of fruits and vegetables do you eat per day (serving size is equal to 1 cup or approximately the size of a tennis ball)? 2-3 12/11/2022 Dental Answer Date Recorded Dental: Regular Dentist Yes 10/03/20 22 Employment Answer Date Recorded Employment status Permanently disabled Education Answer Date Recorded What is the highest level of school you have completed or the highest degree you have received? 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 Gender Identity Male 05/07/2018 1:08 PM CDT Sexual Orientation Straight 05/07/2018 1: 08 PM CDT Last Filed Vital Signs Vital Sign Reading Time Taken Comments Blood Pressure 152/65 07/07/2023 8:22 AM CDT Pulse 102 07/07/2023 8:22 AM CDT Temperature 36.2 ??C (97.2 ??F) 07/07/2023 8:22 AM CD T Respiratory Rate 16 07/07/2023 8:22 AM CDT Oxygen Saturation 98% 07/07/2023 8:22 AM CDT Inhaled Oxygen Concentration - - Weight 80.7 kg (178 lb 0.3 oz) 08/26/2023 10:48 AM OPERATION MANAGER Height 172.7 cm (5' 8) 07/02/2023 10:45 PM CDT Body Mass Index 27.07 07/02/2023 10:45 PM CDT Plan of Treatment Health Maintenance Due Date Last Done Comments COVID-19 Vaccine (2022-11 4 season) 2023 03/05/2022, 08/16/2021, 11/18/2020, Additional history exists Influenza Vaccine (#1) 2023 2, 07/01/2022, 07/10/2021, Additional history exists Depression Screening (Annual PHQ-2) 10/05/2023 Fall Risk Screen (Annual) 10/05/2023 Visit: Medicare Annual Wellness 12/13/2023 3 Visit: Chronic Disease, age 18+ 03/30/2024 3 Creatinine Level (Kidney Fun ction Test) 11/17/2024 11/17/2023, 10/13/2023, 07/03/2023, Additional history exists Potassium Level 11/17/2024 11/17/2023, 01/0 06/2024, 07/03/2023, Additional history exists Sodium Level 11/17/2024 11/17/2023, 01/0 06/2024, 07/03/2023, Additional history exists DTaP,Tdap,and Td Vaccines (4 - Td or Tdap) 04/05/2027 04/05/2017, 12/22/2013, 07/05/2013, Additional history exists Colonoscopy Discontinued 08/28/2009, 11/06/2004 Pneumococcal vaccine (65+ years) Completed 08/14/2015, 03/08/2013, 10/29/2004, Additional history exists Zoster Vaccines Completed 06/11/2018, 01/03, 07/05/2013, Additional history exists CT Colonography Discontinued Cologuard Discontinued Colorectal Cancer Surveillance Discontinued Procedures Procedure Name Priority Date/Time Associated Diagnosis Comments EXTI BASIC METABOLIC PANEL, S/P Routine 11/17/2023 8:35 AM OPERATION MANAGER from Last 3 Months or Most Recently Relevant to Health Maintenance Advance Directives For more information, please contact: [phone] * Full Code (Latest Code Status on File) Date Activated Date Inactivated Comments 07/02/2023 11:00 PM 07/07/2023 12:19 PM Question Answer Comments Full Code: Discussed Does not want CP R/intubation if there is no hope for improvement. * DNR/DNI Date Activated Date Inactivated Comments 03/29/2021 1:44 PM 04/20/2021 1:07 PM * DNR/DNI Date Activated Date Inactivated Comments 03/21/2021 11:59 PM 03/29/2021 12:11 PM Care Teams Claims Clerk Relationship Specialty Start Date End Date Katelyn Reyes M.D. [address] [place] [address] PCP - General Internal Medicine 07/08/23
--- OUTSIDE RECORDS SUMMARY | 2024-01-19 13:53 | XMS_ITS | Encounter Summary ---
Author Name [facility] Organization [facility] Address [address] [place] [address] Support Name Relationship Address Phone BRANDON Next of Kin [address] [address] [place] Emergency Contact [address] [address] Insurance Providers: All historical and current Section Date Range: From patient's date of to the date document was created. This section includes the names of all active insurance providers for the patient. Insurance Provider Type of Coverage Plan Name Start of Policy Coverage End of Policy Coverage Group Number Member ID Insurance Provider's Telephone Number Policy Jensen's Name Patient's Relationship to Policy Jensen [place] MED[place] ARE SUPPL EMENT Oct 05, 2016 [id number] RONALDO,P ETER PATIENT [place] SUPPL EMENT Oct 05, 2016 [id number] [phone] RONALDO,P ETER PATIENT [place] MED[place] SUPPL EMENT Oct 05, 2016 [id number] RONALDO,P ETER PATIENT MEDICARE (WNR) MEDICARE (M) PART A Nov 05, 2001 PART A [id number] [phone] RONALDO,P ETER PATIENT MEDICARE (WNR) MEDICARE (M) PART B Nov 05, 2001 PART B [id number] [phone] RONALDO,P ETER PATIENT MEDICARE (WNR) MEDICARE (M) PART A Nov 05, 2001 PART A [id number] [phone] Hellen HIGGINS PATIENT MEDICARE (WNR) MEDICARE (M) PART B Nov 05, 2001 PART B [id number] [phone] Hellen HIGGINS NACHOBRANDT PATIENT Selected Encounter This section includes the information on record at [place] for the Encounter. Date/Time Encounter Type Encounter Description Reason Provider Source Oct 13, 2023 12:04 PM RN CARE EA 15 MIN HH/HOSPICE [facility] FOLLOW-UP ICD-10-CM B35.1 Uche salgadonileprecious ANABELLE BINGHAM Matt Encounter Template Text not used by [place] Assessments - Encounter Diagnoses This section includes the primary and secondary diagnoses documented for the Encounter. Date/Time Primary/Secondary Diagnosis Diagnosis Name Provider Source Oct 14, 2023 11:12 AM PRIMARY Bobnorah ANABELLE Garcia [facility] Plan of Treatment: Future Appointments (+ 6 months) and Future Tests (+/- 45 days) The Plan of Treatment section includes future care activities for the patient from all [place] treatmentfacilities. This section includes future appointments and future orders which are active, pending or scheduled. Future Appointments This section includes appointments that were scheduled to occur 6 months from the date of the Encounter, up to a maximum of 20 appointments. The data comes from all [facility]. Appointment Date/Time Appointment Type Appointme nt Facility Name Oct 14, 2023 02:30 PM [facility] Nov 26, 2023 01:29 PM AMBULATORY - NONE [facility] Dec 15, 2023 08:00 AM AMBULATORY - NONE [facility] Dec 24, 2023 05:00 PM AMBULATORY - REHAB MEDICIN E [facility] Feb 02, 2024 11:00 AM AMBULATORY - MEDICINE [place] [facility] ([facility]) Active, Pending, and Scheduled Orders This section includes a listing of several types of active, pending, and scheduled orders, including clinic medications orders, diagnostic test orders, procedure orders and consult orders; where the start date of the order is 45 days before the date of the Encounter or 45 days after the date of theEncounter. The data comes from all [facility]. Test Date/Time Test Type Test Details Facility Name Nov 27, 2023 02:51 PM Consult Order [facility] Cons Environmental Engineering Technician's Choice [facility] Advance Directives: All historical and current Section Date Range: From patient's date of to the date document was created. This section includes ALL of a patient's completed or amended VA Advance and Rescinded Directives. The entries below indicate that a directive exists for the patient, but an actual copy is not included with this document. The data comes from all [place] facilities. Date Advance Directives Provider Source Jan 25, 2004 ADVANCE DIRECTIVE ONEIL KEITH ([facility]) Encounter Notes: All associated encounter notes This section contains the clinical notes associated to the Encounter. Date/Time Encounter Note(s) Provider Source Oct 14, 2023 11:11 AM ADDENDUM: LOCAL TITLE: Addendum STANDARD TITLE: ADDENDUM DATE OF NOTE: OCT 14, 2023@11:11:21 ENTRY DATE: OCT 14, 2023@11:11:22 AUTHOR: YELITZA BINGHAM COSIGNER: URGENCY: STATUS: COMPLETED Forwarding to [facility] Oversight for COVID Tracking: tested positive for COVID 19 on 09.29.2023 /preethi/ Yelitza Bingham RN Community Health Nurse Coordinator Signed: 10/14/2023 11:12 Receipt Acknowledged By: 10/15/2023 08:46 /es/ Tonie Fonseca RN, BSN, CRRN [facility] Nurse Mine Technician/Fire Equipment Operator --- Original Document --- 10/14/23 [facility] RETIREMENT RESIDENT ASSESSMENT: [facility] ([facility]) Resident Assessment GENERAL INFORMATION DS - Disabilities Eligibility: SERVICE CONNECTED 50% to 100% VERIFIED Total S/C %: 100 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 10% 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% S/C LABYRINTHITIS 10% S/C PROSTATE GLAND CONDITION 20% S/C LOSS OF SENSE OF SMELL 10% S/C PARALYSIS OF FIFTH CRANIAL NERVE 10% S/C PARALYSIS OF FIFTH CRANIAL NERVE 10% S/C DEFORMITY OF THE PENIS 0% S/C PARALYSIS OF ELEVENTH CRANIAL NERVE 20% 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 20% S/C PARALYSIS OF MUSCULOSPIRAL NERVE 20% S/C TINNITUS 10% S/C Visit completed by: Nurse Date of visit: October 13, 2023 [facility] ([facility]) Name: [facility] Type of visit: On-site Information provided by: Reason for placement: roasterman care INFORMATION OBTAINED DURING VISIT WITH ASSESSMENT OF COGNITION, COMMUNICATION, MOOD AND BEHAVIOR ----- Mental status: Alert voiced, experienced, or reported delusions (misconceptions or beliefs that are firmly held, contrary to reality), hallucinations (perceptual experiences in the absence of real or external sensory stimuli) or any other unusual thought process/content/altered perception during the visit: No Thought content: Within normal limits Mood/behavior: Cooperative/pleasant Hearing: Adequate (no difficulty in normal conversation) Vision: Adequate (does not require corrective lenses) Speech: Clear speech (distinct intelligible words) Communication (ability to understand): Understands (clear comprehension) Communication (ability to be understood): Understood (able to make themselves understood) SUICIDE SCREEN Annual C-SSRS completed. SATISFACTION [place] is satisfied with care received at the [facility]. [place] reported no other concerns/complaints since placement or last visit. /Drain Tile Machine Operator feels 's rights as a resident of a longterm have been maintained (i.e., the right to be treated with dignity and respect, free from abuse, neglect and discrimination based on race, color, national origin, disability, age, sex, sexual orientation, or jewish): Yes [facility] staff provided a copy of the [place] reference sheet, containing contact information for [facility] staff and the [facility], to the [place]/Drain Tile Machine Operator: Yes [place] appears to be well adjusted to residing in this [facility]: Yes is offered daily activities: Yes [place] is offered spiritual services: Yes [facility] STAFF OBSERVATIONS Quality of sensory and environmental aesthetic is adequate: Yes Facility cleanliness is adequate: Yes Fluids available: Yes 's appearance: appeared: Appropriately groomed, dressed for time of day snf staff is courteous: Yes Total time spent for visit (in minutes) 5 min Total travel time 45 min INFORMATION OBTAINED FROM [facility] MEDICAL RECORD REVIEW Hospitalization since placement or last visit: No Emergency room visit since placement or last visit: No CLINICAL REVIEW Socialization Ability: Fair Restraint free since placement or last visit: Yes Behavioral symptoms present: No FUNCTIONAL STATUS Activity of Daily Living (ADL) Loss of ADL function since placement or last visit: No Weights and vital signs recorded monthly, or as ordered: Yes Most recent weight taken by [facility] staff: Weight (lbs): 167 Date: October 10, 2023 Weight loss of 5% or greater in the last 3 months: No Diet: Regular Skin assessment completed at appropriate intervals: Yes Pressure injuries: None Specialized wound care: Other: Details of wound care: L thigh burn 2* coffee, tx orders, lids on coffee, cold water in coffee and supervision with coffee [place] is not being treated for pain. DOCUMENTATION OVERSIGHT Physician, Nursing, and Email Marketing Specialist documentation completed at regular intervals in accordance with State regulations: Yes [place] assessed by a provider at required intervals: Yes As needed (PRN) medication effectiveness is documented: N/A [facility] Plan of Care updated: Yes Date Plan of Care updated: September 16, 2023 Care plan reflects 's individualized care needs and includes multidisciplinary participation: Yes LIFE-SUSTAINING TREATMENT 's preferences for Life-Sustaining Treatment (LST) are documented and have been reviewed in the [facility] medical record: No 's Life-Sustaining Treatment (LST) progress note and orders are documented in the [place] medical record: No Explanation: NA SAFETY ------ has fallen since placement or last visit. 09/30/2023 14:45 Falls Time of fall: 1445 Location of fall: Resident's room Description of fall: Resident attempting to self transfer from bed to go to the bath room Vital signs and orthostatic blood pressures: Vitals are T 99.0 P 71 R 20 BP 132/70 SPO2 91% on room air Who witnessed: None Environmental factors: None Why did fall occur: Increase confusion due to DX of Covid Initial intervention at time of fall: Staff monitoring and assist with toileting Interventions to prevent future fall(s): Increase monitoring and prompted toileting Injury: None Care plan updated with interventions: remains intact Physician Updated: yes Family updated: Yes 10/01/2023 22:30 Falls Time of fall: 2230 Location of fall: Residents room Description of fall: At 2230, staff heard a loud noise coming from resident's room. Staff opened the door and observed resident sitting on the floor on fall mat with back against bed and legs extended out. No gripper socks on. Vital signs and orthostatic blood pressures: BP 134/68 P86 R18 Temp 97.5 O2 SAT 95%RA Who witnessed: Unwitnessed Environmental factors: Table not next to bed with urinal on it. Why did fall occur: Per resident, going to the bathroom. Initial intervention at time of fall: Increase safety checks and placed urinal within reach. Interventions to prevent future fall(s): Staff to place urinal within reach. Apply gripper socks on while in bed. Injury: No apparent injuries noted. Care plan updated with interventions: Yes Physician Updated: Emailed Genekalen via email. Family updated: Will call POA/ at appropriate time due to no serious injuries. 10/03/2023 14:39 Falls Time of fall: 1415 Location of fall: room Description of fall: resident found on floor in front of recliner. Recliner in upright position. Vital signs and orthostatic blood pressures: 97.0 p 50 16 128/76. sp02 95% Who witnessed: no witness Environmental factors: recliner in upright position. Why did fall occur: resident making unsafe self transfer Initial intervention at time of fall: frequent checks Interventions to prevent future fall(s): dycem slip quan on recliner Injury: none noted. Care plan updated with interventions: Physician Updated: left voicemail. Family updated: updated Brandon No medication errors since placement or last visit. attempted to elope from the facility: No Evidence of abuse/neglect either confirmed or under investigation: No Other adverse event(s) since placement or last visit: No LEVEL OF CARE MDS RUG or PDPM score is consistent with the 's care needs. DISPOSITION appears with low care needs where an alternative level of care may be appropriate: No Discharge plan in place: No PROGRAM CARE COORDINATION PLAN ---- VA PLAN OF CARE: Routine oversight of veterans [facility] care Total time spent for chart review (in minutes) 15 min /es/ Yelitza Bingham RN Community Health Nurse Coordinator Signed: 10/14/2023 11:11 10/15/2023 ADDENDUM STATUS: COMPLETED Entry of Outside Tests/Reports: Covid-19 test results: There is a written/verified report of a Positive COVID-19 PCR Lab test done at a location other than this [place]. Date: September 29, 2023 [place] tested with positive result in [facility]. /preethi/ Tonie Fonseca RN, BSN, CRRN [facility] Nurse Mine Technician/Fire Equipment Operator Signed: 10/15/2023 08:47 YELITZA BINGHAM [facility] Oct 14, 2023 11:04 AM COMMUNITY RETIREMENT CARE NOTE: LOCAL TITLE: COMMUNITY RETIREMENT RESIDENT ASSESSMENT STANDARD TITLE: COMMUNITY RETIREMENT CARE NOTE DATE OF NOTE: OCT 14, 2023@11:04 ENTRY DATE: OCT 14, 2023@11:04:37 AUTHOR: YELITZA BINGHAM EXP COSIGNER: URGENCY: STATUS: COMPLETED SUBJECT: October [facility] RETIREMENT RESIDENT ASSESSMENT Has ADDENDA [facility] ([facility]) Resident Assessment GENERAL INFORMATION DS - Disabilities Eligibility: SERVICE CONNECTED 50% to 100% VERIFIED Total S/C %: 100 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 10% 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% S/C LABYRINTHITIS 10% S/C PROSTATE GLAND CONDITION 20% S/C LOSS OF SENSE OF SMELL 10% S/C PARALYSIS OF FIFTH CRANIAL NERVE 10% S/C PARALYSIS OF FIFTH CRANIAL NERVE 10% S/C DEFORMITY OF THE PENIS 0% S/C PARALYSIS OF ELEVENTH CRANIAL NERVE 20% 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 20% S/C PARALYSIS OF MUSCULOSPIRAL NERVE 20% S/C TINNITUS 10% S/C Visit completed by: Nurse Date of visit: October 13, 2023 [facility] ([facility]) Name: [facility] Type of visit: On-site Information provided by: Reason for placement: roasterman care INFORMATION OBTAINED DURING VISIT WITH ASSESSMENT OF COGNITION, COMMUNICATION, MOOD AND BEHAVIOR ----- Mental status: Alert [place] voiced, experienced, or reported delusions (misconceptions or beliefs that are firmly held, contrary to reality), hallucinations (perceptual experiences in the absence of real or external sensory stimuli) or any other unusual thought process/content/altered perception during the visit: No Thought content: Within normal limits Mood/behavior: Cooperative/pleasant Hearing: Adequate (no difficulty in normal conversation) Vision: Adequate (does not require corrective lenses) Speech: Clear speech (distinct intelligible words) Communication (ability to understand): Understands (clear comprehension) Communication (ability to be understood): Understood (able to make themselves understood) SUICIDE SCREEN Annual C-SSRS completed. SATISFACTION is satisfied with care received at the [facility]. reported no other concerns/complaints since placement or last visit. /Drain Tile Machine Operator feels 's rights as a resident of a longterm have been maintained (i.e., the right to be treated with dignity and respect, free from abuse, neglect and discrimination based on race, color, national origin, disability, age, sex, sexual orientation, or jewish): Yes [facility] staff provided a copy of the [place] reference sheet, containing contact information for [facility] staff and the [facility], to the [place]/Drain Tile Machine Operator: Yes appears to be well adjusted to residing in this [facility]: Yes is offered daily activities: Yes [place] is offered spiritual services: Yes [facility] STAFF OBSERVATIONS Quality of sensory and environmental aesthetic is adequate: Yes Facility cleanliness is adequate: Yes Fluids available: Yes 's appearance: appeared: Appropriately groomed, dressed for time of day snf staff is courteous: Yes Total time spent for visit (in minutes) 5 min Total travel time 45 min INFORMATION OBTAINED FROM [facility] MEDICAL RECORD REVIEW Hospitalization since placement or last visit: No Emergency room visit since placement or last visit: No CLINICAL REVIEW Socialization Ability: Fair Restraint free since placement or last visit: Yes Behavioral symptoms present: No FUNCTIONAL STATUS Activity of Daily Living (ADL) Loss of ADL function since placement or last visit: No Weights and vital signs recorded monthly, or as ordered: Yes Most recent weight taken by [facility] staff: Weight (lbs): 167 Date: October 10, 2023 Weight loss of 5% or greater in the last 3 months: No Diet: Regular Skin assessment completed at appropriate intervals: Yes Pressure injuries: None Specialized wound care: Other: Details of wound care: L thigh burn 2* coffee, tx orders, lids on coffee, cold water in coffee and supervision with coffee is not being treated for pain. DOCUMENTATION OVERSIGHT Physician, Nursing, and Email Marketing Specialist documentation completed at regular intervals in accordance with State regulations: Yes assessed by a provider at required intervals: Yes As needed (PRN) medication effectiveness is documented: N/A [facility] Plan of Care updated: Yes Date Plan of Care updated: September 16, 2023 Care plan reflects 's individualized care needs and includes multidisciplinary participation: Yes LIFE-SUSTAINING TREATMENT 's preferences for Life-Sustaining Treatment (LST) are documented and have been reviewed in the [facility] medical record: No 's Life-Sustaining Treatment (LST) progress note and orders are documented in the [place] medical record: No Explanation: NA SAFETY ------ has fallen since placement or last visit. 09/30/2023 14:45 Falls Time of fall: 1445 Location of fall: Resident's room Description of fall: Resident attempting to self transfer from bed to go to the bath room Vital signs and orthostatic blood pressures: Vitals are T 99.0 P 71 R 20 BP 132/70 SPO2 91% on room air Who witnessed: None Environmental factors: None Why did fall occur: Increase confusion due to DX of Covid Initial intervention at time of fall: Staff monitoring and assist with toileting Interventions to prevent future fall(s): Increase monitoring and prompted toileting Injury: None Care plan updated with interventions: remains intact Physician Updated: yes Family updated: Yes 10/01/2023 22:30 Falls Time of fall: 2229 Location of fall: Residents room Description of fall: At 2230, staff heard a loud noise coming from resident's room. Staff opened the door and observed resident sitting on the floor on fall mat with back against bed and legs extended out. No gripper socks on. Vital signs and orthostatic blood pressures: BP 134/68 P86 R18 Temp 97.5 O2 SAT 95%RA Who witnessed: Unwitnessed Environmental factors: Table not next to bed with urinal on it. Why did fall occur: Per resident, going to the bathroom. Initial intervention at time of fall: Increase safety checks and placed urinal within reach. Interventions to prevent future fall(s): Staff to place urinal within reach. Apply gripper socks on while in bed. Injury: No apparent injuries noted. Care plan updated with interventions: Yes Physician Updated: Emailed Genekalen via email. Family updated: Will call POA/ at appropriate time due to no serious injuries. 10/03/2023 14:39 Falls Time of fall: 1415 Location of fall: room Description of fall: resident found on floor in front of recliner. Recliner in upright position. Vital signs and orthostatic blood pressures: 97.0 p 50 16 128/76. sp02 95% Who witnessed: no witness Environmental factors: recliner in upright position. Why did fall occur: resident making unsafe self transfer Initial intervention at time of fall: frequent checks Interventions to prevent future fall(s): dycem slip quan on recliner Injury: none noted. Care plan updated with interventions: Physician Updated: left voicemail. Family updated: updated Brandon No medication errors since placement or last visit. [place] attempted to elope from the facility: No Evidence of abuse/neglect either confirmed or under investigation: No Other adverse event(s) since placement or last visit: No LEVEL OF CARE MDS RUG or PDPM score is consistent with the 's care needs. DISPOSITION appears with low care needs where an alternative level of care may be appropriate: No Discharge plan in place: No PROGRAM CARE COORDINATION PLAN ---- [place] PLAN OF CARE: Routine oversight of [facility] care Total time spent for chart review (in minutes) 15 min /preethi/ Yelitza Bingham RN Community Health Nurse Coordinator Signed: 10/14/2023 11:11 10/14/2023 ADDENDUM STATUS: COMPLETED Forwarding to [facility] Oversight for COVID Tracking: tested positive for COVID 19 on 09.29.2023 /perethi/ Yelitza Bingham RN Community Health Nurse Coordinator Signed: 10/14/2023 11:12 Receipt Acknowledged By: 10/15/2023 08:46 /preethi/ Tonie Fonseca RN, BSN, CRRN [facility] Nurse Mine Technician/Fire Equipment Operator 10/15/2023 ADDENDUM STATUS: COMPLETED Entry of Outside Tests/Reports: Covid-19 test results: There is a written/verified report of a Positive COVID-19 PCR Lab test done at a location other than this [place]. Date: September 29, 2023 tested with positive result in [facility]. /es/ Tonie Fonseca, RN, BSN, CRRN [facility] Nurse Mine Technician/Fire Equipment Operator Signed: 10/15/2023 08:47 YELITZA BINGHAM [facility]
--- OUTSIDE RECORDS SUMMARY | 2024-01-19 13:53 | XMS_ITS | Clinical Summary ---
Author Name Unknown Organization [facility] Address [place], [place] [address] Care Team Providers Care Tugboat Captain Name Role Phone [place], [place] Primary Care Provider [phone] Allergies No known active allergies Medications Medication Sig Dispensed Refills Start Date End Date Status cloNIDine (CATAPRES) 0.1 mg tablet Take 1 tablet by mouth 2 times daily if needed for SBP > (Specify) (more than 160). 10 tablet 0 12/19/2013 Active LORazepam (ATIVAN) 0.5 mg tab Take 1 tablet by mouth every 6 hours if needed. 10 tablet 0 12/19/2013 Active lisinopril (PRINIVIL; ZESTRIL) 5 mg tablet Take 5 mg by mouth once daily. 4 04/24/2017 Active acetaminophen (TYLENOL EXTRA STRGTH) 500 mg tablet Take 500 mg by mouth every 6 hours if needed. Max acetaminophen dose: 4000mg in 24 hrs. Active ASPIRIN LOW DOSE ORAL Take 81 mg by mouth once daily. Active cholecalciferol (VITAMIN D3) 1,000 unit capsule Take 1,000 Units by mouth once daily. Active citalopram (CELEXA) 40 mg tablet Take 20 mg by mouth once daily. Active UBIDECARENONE (COQ-10 ORAL) Take by mouth. Active FA/MV,CA,IRON,MIN/ LYCOPENE/LUT (MULTIVITAL ORAL) Take by mouth. Act codey Omeprazole 20 mg tablet Take 20 mg by mouth once daily. Active atorvastatin (LIPITOR) 40 mg tablet Take 1 Tablet by mouth once daily. 03/11/2023 Active DULoxetine (CYMBALTA) 30 mg Delayed-release capsule Take 30 mg by mouth. 07/08/2023 Acti ve losartan (COZAAR) 25 mg tablet Take 1 Tablet by mouth once daily. 01/30/2023 Active loratadine (CLARITIN) 10 mg tablet Take 1 Tablet by mouth two times daily. 01/13/2022 Active nitroglycerin (NITROSTAT) 0.[address] 0.4 mg under the tongue every 5 minutes if needed. 11/11/2022 Active pramipexole (MIRAPEX) 0.5 mg tablet Take 0.5 mg by mouth. 12/11/2022 Active pregabalin (LYRICA) 25 mg capsule Take 25 mg by mouth. 07/07/2023 Acti ve torsemide (DEMADEX) 10 mg tablet Take 0.5 Tablets by mouth once daily. 12/23/2022 Active spironolactone (ALDACTONE) 25 mg tablet Take 1 Tablet by mouth once daily. 01/13/2022 Active Active Problems Problem Noted Date Diagnosed Date Tinnitus, bilateral 04/15/2023 Asymmetrical sensorineural hearing loss 04/15/20 23 Encounters Date Type Department Care Team Description 11/11/2023 Lab Requisition [facility] [phone] Bob Hall MD from Last 3 Months Social History Tobacco Use Types Packs/Day Years Used Date Smoking Tobacco: Never Alcohol Use Standard Drinks/Week Comments Not Currently 0 (1 standard drink = 0.6 oz pur e alcohol) Social Connections Answer Date Recorded Frequency of Communication with Friends and Fami ly Not on file 10/14/2023 Sex and Gender Information Value Date Recorded Sex Assigned at Not on file Gender Identity Not on file Sexual Orientation Not on file Obstetrics History Last Filed Vital Signs Vital Sign Reading Time Taken Comments Blood Pressure 161/85 07/02/2017 6:16 AM CDT Pulse 63 07/02/2017 6:16 AM CDT Temperature 36.4 ??C (97.6 ??F) 09/19/2014 2:50 PM CS T Respiratory Rate 18 07/02/2017 6:16 AM CDT Oxygen Saturation 96% 07/02/2017 6:16 AM CDT Inhaled Oxygen Concentration - - Weight 90.7 kg (200 lb) 09/19/2014 2:50 PM SENIOR RUBY DEVELOPER Height 177.8 cm (5' 10) 09/19/2014 2:50 PM SENIOR RUBY DEVELOPER Body Mass Index 28.7 09/19/2014 2:50 PM SENIOR RUBY DEVELOPER Plan of Treatment Health Maintenance Due Date Last Done Comments Pneumococcal series for age 65+ (1 of 2 - PCV) 1942 Tdap 1947 Depression screening for age 12+ 1948 BMI (ht and wt on same day) for age 18+ 1954 Tetanus booster 1956 Zoster (shingles) series for age 50+ (1 of 2) 1986 Medicare Wellness for age 65+ 2001 COVID-19 vaccine series (3 - 2022-24 season) 2023 03/05/2022, 08/16/2021 Influenza for age 65+ 06/05/2024 Procedures Procedure Name Priority Date/Time Associated Diagnosis Comments BASIC METABOLIC PANEL Routine 11/17/2023 8:35 AM SENIOR RUBY DEVELOPER Chronic diastolic (congestive) heart failure (HC) from Last 3 Months Results * (ABNORMAL) BASIC METABOLIC PANEL (11/17/2023 8:35 AM SENIOR RUBY DEVELOPER) SODIUM 140 136 - 145 mmol/L 11/17/2023 9:36 AM [facility] POTASSIUM 3.7 3.5 - 5.1 mmol/L 11/17/2023 9:36 AM [facility] CHLORIDE 106 98 - 107 mmol/L 11/17/2023 9:36 AM [facility] CO2,TOTAL 24 22 - 29 mmol/L 11/17/2023 9:36 AM [facility] ANION GAP 10 5 - 18 11/17/2023 9:36 AM [facility] GLUCOSE 118(H) 70 - 99 mg/dL 11/17/2023 9:36 AM [facility] CALCIUM 8.9 8.8 - 10.2 mg/dL 11/17/2023 9:36 AM [facility] BUN 21 8 - 23 mg/dL 11/17/2023 9:36 AM [facility] CREATININE 0.97 0.70 - 1.20 mg/dL 11/17/2023 9:36 AM [facility] BUN/CREAT RATIO 22(H) 10 - 20 9:36 AM SENIOR RUBY DEVELOPER [facility] eGFR 76(L) >90 mL/min/1.7 3m2 11/17/2023 9:36 AM SENIOR RUBY DEVELOPER [facility] Comment:As of 2021, eG FR is calculated by the CKD-EPI creatinine equation without race adjustment. ??eGFR can be influenced by muscle mass, exercise, and diet. ??The reported eGFR is an estimation only and is only applicable if the renal function is stable. Blood BLOOD SPECIMEN / Unknown Butterfly / Unknown 11/17/2023 8:35 AM SENIOR RUBY DEVELOPER 11/17/2023 9:09 AM SENIOR RUBY DEVELOPER Bob Hall MD CHEMISTRY [facility] [address] [place] [address] from Last 3 Months Care Teams Tugboat Captain Relationship Specialty Start Date End Date [place] [address] [place] [phone] PCP - General 12/19/13
--- OUTSIDE RECORDS SUMMARY | 2024-01-19 13:53 | XMS_ITS | Encounter Summary ---
Author Name Unknown Organization [facility] Address [address] [place] [address] Care Team Providers Care Combatant Diver Officer Name Role Phone Katelyn Reyes M.D. Primary Care Provider Encounter Details Date Type Department Care Team (Latest Contact Info) Description 07/02/2023 Intake [facility] Social History Tobacco Use Types Packs/Day Years Used Date Smoking Tobacco: Never Passive Smoke Exposure: Never Smokeless Tobacco: Never Alcohol Use Standard Drinks/Week Comments Yes 2 [...] week 12/11/2022 How often do you attend [facility] or buddhism services? 1 to 4 times per year [...] Answer Date Recorded PHQ-2 Score 0 12/11/2022 [facility] Occupat ional Health - Occupational Stress [...] place to sleep or slept in a alf (including now)? No 12/11/2022 Depression Answer Date [...] Answer Date Recorded Employment status Permanently disabled 3 Education Answer Date Recorded What is the highest level of school you have completed or the highest degree you have received? Some college, no degree 12/12/2019 Sex and Gender Information Value Date Recorded Sex Assigned at Male 08/26/2023 10:53 AM NATIONAL SALES CONSULTANT Gender Identity Male 05/07/2018 1:08 PM CDT Sexual Orientation Straight 05/07/2018 1: 08 PM CDT documented as of this encounter Plan of Treatment Not on file documented as of this encounter Visit Diagnoses Not on filedocumented in this encounter Additional Health Concerns Assessment Noted Time PHQ-9 Depression Total Score: 1 03/22/20 21 12:00 AM CDT documented as of this encounter Care Teams Combatant Diver Officer Relationship Specialty Start Date End Date Katelyn Reyes M.D. ROBERTA: [phone] [address] [place] [phone] PCP - General Internal Medicine 07/08/23 documented as of this encounter
--- OUTSIDE RECORDS SUMMARY | 2024-01-19 13:53 | XMS_ITS ---
Author Name Unknown Organization [facility] Address [address] [place] [address] Care Team Providers Care Dental Technology Advisor Name Role Phone Unavailable Unavailable Unavailable Surgery Details Not on file Complications Check Surgery Details section. Procedure Estimated Blood Loss Check Surgery Details section. Procedure Findings Check Surgery Details section. Procedure Specimens Taken Check Surgery Details section.
--- OUTSIDE RECORDS SUMMARY | 2024-01-19 13:53 | XMS_ITS | Encounter Summary ---
Author Name Unknown Organization [facility] Address [address] [place] [address] Care Team Providers Care Railway Switchman Name Role Phone Katelyn Reyes M.D. Primary Care Provider [phone] Reason for Referral * Outpatient (Routine) - Authorized Specialty Diagnoses / Procedures Referred By Contac t Referred To Contact Katelyn Reyes M.D. [address] [place] [address] [facility] Referral ID Status Reason Start Date Expiration Date V isits Requested Visits Authorized [id number] Authorized 01/12/2024 07/13/2025 1 1 Scheduling Instructions Nurse AWV Do not schedule prior to due date to ensure insurance coverage Visit: Medicare Annual Wellness due on 12/13/2023. Encounter Details Date Type Department Care Team (Latest Contact Info) Description 01/12/2024 Orders Only RST PCP [facility]NY[facility] Katelyn Reyes M.D. [address] [place] [phone] Social History Tobacco Use Types Packs/Day Years [...] week 12/11/2022 How often do you attend [facility] or worship services? 1 to 4 times per year [...] Answer Date Recorded PHQ-2 Score 0 12/11/2022 [facility] Occupat ional Health - Occupational Stress [...] place to sleep or slept in a skilled nursing (including now)? No 12/11/2022 Depression Answer Date [...] Date Recorded Dental: Regular Dentist Yes 10/03/20 Employment Answer Date Recorded Employment status Permanently disabled Education Answer Date Recorded What is the highest level of school you have completed or the highest degree you have received? Some college, no degree 12/12/2019 Sex and Gender Information Value Date Recorded Sex Assigned at Male 08/26/2023 10:53 AM LEVEL VIAL SEALER Gender Identity Male 05/07/2018 1:08 PM CDT Sexual Orientation Straight 05/07/2018 1: 08 PM CDT documented as of this encounter Plan of Treatment Scheduled Referrals Name Type Priority Associated Diagnoses Orde r Schedule Primary Care nurse visit (clinic) - [facility]; Medicare Annual Wellness Outpatient Referral Routine Expected: 02/09/2024, Expires: 07/10/2024 documented as of this encounter Visit Diagnoses Not on filedocumented in this encounter Additional Health Concerns Assessment Noted Time PHQ-9 Depression Total Score: 1 03/22/20 21 12:00 AM CDT documented as of this encounter Care Teams Railway Switchman Relationship Specialty Start Date End Date Katelyn Reyes M.D. [address] [place] [phone] PCP - General Internal Medicine 07/08/23 documented as of this encounter
--- OUTSIDE RECORDS SUMMARY | 2024-01-19 13:53 | XMS_ITS | Encounter Summary ---
Author Name [facility] Organization [facility] Address [address] [place] [address] Support Name Relationship Address Phone BRANDON Next of Kin [address] [address] BRANDON Emergency Contact [address] [address] [...] MEDIC ARE SUPPL EMENT Oct 05, 2016 [id number] Hellen HIGGINS ETER PATIENT [place] MEDICARE SUPPLEMEN JUSTINA MEDIC ARE SUPPL EMENT Oct 05, 2016 [id number] [phone] RONALDO,Hellen ETER PATIENT [place] MEDICARE SUPPLEMEN JUSTINA MEDIC ARE SUPPL EMENT Oct 05, 2016 [id number] [phone] Hellen HIGGINS ETER PATIENT MEDICARE (WNR) MEDICARE (M) PART A Nov 05, 2001 PART A [id number] Hellen HIGGINS ETER PATIENT MEDICARE (WNR) MEDICARE (M) PART B Nov 05, 2001 PART B [id number] [phone] Hellen HIGGINS ETER PATIENT MEDICARE (WNR) MEDICARE (M) PART A Nov 05, 2001 PART A [id number] Hellen HIGGINS NACHOBRANDT PATIENT MEDICARE (WNR) MEDICARE (M) PART B Nov 05, 2001 PART B [id number] Hellen HIGGINS PATIENT Selected Encounter This section includes the information on record at [place] for the Encounter. Date/Time Encounter Type Encounter Description Reason Pro vider Source Nov 06, 2023 03:19 PM Outpatient Encounter TELEPHONE/ANCILLARY IHE Encounter Template Text not used by [place] Plan of Treatment: Future Appointments (+ 6 months) and Future Tests (+/- 45 days) The Plan of Treatment section includes future care activities for the patient from all [place] treatmentfacilities. This section includes future appointments and future orders which are active, pending or scheduled. Future Appointments This section includes appointments that were scheduled to occur 6 months from the date of the Encounter, up to a maximum of 20 appointments. The data comes from all [facility]. Appointment Date/Time Appointment Type Appointme nt Facility Name Nov 26, 2023 01:29 PM AM[place]ORY [place] NONE [place] [facility] Dec 15, 2023 08:00 AM [facility] Dec 24, 2023 05:00 PM AMBULATORY - REHAB MEDICIN E [facility] Feb 02, 2024 11:00 AM AMBULATORY - MEDICINE [facility] ([facility] Active, Pending, and Scheduled Orders This section includes a listing of several types of active, pending, and scheduled orders, including clinic medications orders, diagnostic test orders, procedure orders and consult orders; where the start date of the order is 45 days before the date of the Encounter or 45 days after the date of theEncounter. The data comes from all [facility]. Test Date/Time Test Type Test Details Facility Name Nov 27, 2023 02:51 PM Consult Order [facility] Cons Web Designer's Choice [facility] Advance Directives: All historical and current Section Date Range: From patient's date of to the date document was created. This section includes ALL of a patient's completed or amended [place] Advance and Rescinded Directives. The entries below indicate that a directive exists for the patient, but an actual copy is not included with this document. The data comes from all [facility]. Date Advance Directives Provider Source Jan 25, 2004 ADVANCE DIRECTIVE ONEIL KEITH ([facility]) Encounter Notes: All associated encounter notes This section contains the clinical notes associated to the Encounter. Date/Time Encounter Note(s) Provider Source Nov 09, 2023 07:24 AM ADDENDUM: LOCAL TITLE: Addendum STANDARD TITLE: ADDENDUM DATE OF NOTE: NOV 09, 2023@07:24:44 ENTRY DATE: NOV 09, 2023@07:24:45 AUTHOR: JANINE MARION COSIGNER: URGENCY: STATUS: COMPLETED Reviewed request which is for an air mattress due to a history of cysts. Reviewed chart for and there has been no report of skin breakdown. Please provide further information as to the need for this air mattress at this time. History of cysts would not be a reason for an air mattress at this time. [place] has been in facility for 4 months. /darlyn MARION DO PHYSICIAN, PM&R Signed: 11/09/2023 07:26 Receipt Acknowledged By: 11/09/2023 08:38 /darlyn MARIE (SANDE) ADVANCED SHINGLE CARRIER ====== --- Original Document --- 11/06/23 [facility] CARE COORDINATION NOTE: Community [facility] Program Care Coordination REFERRING PROVIDER INFORMATION [facility]: [facility] Referring Provider: Susannah Mccollum CORRECTION POINT OF CONTACT FOR APPOINTMENT COORDINATION Name: Maria Isabel LANCE Email: TYPE OF REFERRAL Other: air mattress(standard) REASON FOR REFERRAL skin breakdown leader writer spoke with Susannah DIAS mail to [facility] [address] [place] [address] Provider to review for consult placement. DME form in S drive /darlyn MARIE (SANDE) ADVANCED SHINGLE CARRIER Signed: 11/06/2023 15:22 Receipt Acknowledged By: 11/09/2023 07:20 /darlyn MARION DO PHYSICIAN, PM&R JANINE MARION [facility] Nov 06, 2023 03:19 PM COMMUNITY CORRECTION CARE NOTE: LOCAL TITLE: [facility] CARE COORDINATION NOTE STANDARD TITLE: COMMUNITY CORRECTION CARE NOTE DATE OF NOTE: NOV 06, 2023@15:19 ENTRY DATE: NOV 06, 2023@15:19:41 AUTHOR: KRISTINE MARIE EXP COSIGNER: URGENCY: STATUS: COMPLETED [facility] CARE COORDINATION NOTE Has ADDENDA Community [facility] Program Care Coordination REFERRING PROVIDER INFORMATION [facility]: [facility] Referring Provider: Susannah Mccollum CORRECTION POINT OF CONTACT FOR APPOINTMENT COORDINATION Name: Maria Isabel RN Email: TYPE OF REFERRAL Other: air mattress(standard) REASON FOR REFERRAL skin breakdown leader writer spoke with Susannah DIAS mail to [facility] [address] [place] [address] Provider to review for consult placement. DME form in S drive /preethi/ KRISTINE MAGANA) ADVANCED SHINGLE CARRIER Signed: 11/06/2023 15:22 Receipt Acknowledged By: 11/09/2023 07:20 /preethi/ JANINE MARION DO PHYSICIAN, PM&R 11/09/2023 ADDENDUM STATUS: COMPLETED Reviewed request which is for an air mattress due to a history of cysts. Reviewed chart for and there has been no report of skin breakdown. Please provide further information as to the need for this air mattress at this time. History of cysts would not be a reason for an air mattress at this time. has been in facility for 4 months. /darlyn MARION DO PHYSICIAN, PM&R Signed: 11/09/2023 07:26 Receipt Acknowledged By: * AWAITING SIGNATURE * KRISTINE MAREI SANDRA J [facility]
--- OUTSIDE RECORDS SUMMARY | 2024-01-19 13:53 | XMS_ITS | Encounter Summary ---
Author Name Department of Vetera ns Affairs Organization [facility] Address [address] [place] [address] Support Name Relationship Address Phone BRANDON Next [...] MEDIC ARE SUPPL EMENT Oct 05, 2016 [id number] [phone] RONALDO,P ETER PATIENT [place] MEDICARE SUPPLEMEN JUST[place] MEDIC ARE SUPPL EMENT Oct 05, 2016 [id number] [phone] RONALDO,P ETER PATIENT [place] MEDICARE SUPPLEMEN [place] MEDIC ARE SUPPL EMENT Oct 05, 2016 [id number] RONALDO,Hellen ETER PATIENT MEDICARE (WNR) MEDICARE (M) PART A Nov 05, 2001 PART A [id number] RONALDO,Hellen ETER PATIENT MEDICARE (WNR) MEDICARE (M) PART B Nov 05, 2001 PART B [id number] [phone] RONALDO,P ETER PATIENT MEDICARE (WNR) MEDICARE (M) PART A Nov 05, 2001 PART A [id number] Hellen HIGGINS [place] PATIENT MEDICARE (WNR) MEDICARE (M) PART B Nov 05, 2001 PART B [id number] [phone] ROGELIOHellen FERNANDO [place] PATIENT Selected Encounter This section includes the information on record at [place] for the Encounter. Date/Time Encounter Type Encounter Description Reason Provider Source Jul 09, 2023 06:51 PM Outpatient Encounter PM&RS PHYSICIAN ICD-10-CM M62.81 Muscle weakness (generalized) DALTON MARION [facility] Encounter Template Text not used by [place] Assessments - Encounter Diagnoses This section includes the primary and secondary diagnoses documented for the Encounter. Date/Time Primary/Secondary Diagnosis Diagnosis Name Provider Source Jul 09, 2023 06:55 PM PRIMARY Muscle weakness (generalized) DALTON MARION [facility] Plan of Treatment: Future Appointments (+ 6 months) and Future Tests (+/- 45 days) The Plan of Treatment section includes future care activities for the patient from all [place] treatmentfacilities. This section includes future appointments and future orders which are active, pending or scheduled. Future Appointments This section includes appointments that were scheduled to occur 6 months from the date of the Encounter, up to a maximum of 20 appointments. The data comes from all [place] treatment facilities. Appointment Date/Time Appointment Type Appointme nt Facility Name Oct 14, 2023 02:30 PM [facility] Nov 26, 2023 01:29 PM AMBULATORY - NONE [facility] Dec 15, 2023 08:00 AM AMBULATORY - NONE [facility] Dec 24, 2023 05:00 PM AMBULATORY - REHAB MEDICIN E [facility] Advance Directives: All historical and current Section Date Range: From patient's date of to the date document was created. This section includes ALL of a patient's completed or amended [place] Advance and Rescinded Directives. The entries below indicate that a directive exists for the patient, but an actual copy is not included with this document. The data comes from all [facility]. Date Advance Directives Provider Source Jan 25, 2004 ADVANCE DIRECTIVE ONEIL KEITH ([facility]) Encounter Notes: All associated encounter notes This section contains the clinical notes associated to the Encounter. Date/Time Encounter Note(s) Provider Source Jul 09, 2023 06:51 PM COMMUNITY CARE HOME CARE CONSULT: LOCAL TITLE: [facility] THERAPY AUTHORZATION CONSULT STANDARD TITLE: COMMUNITY CARE HOME CARE CONSULT DATE OF NOTE: JUL 09, 2023@18:51 ENTRY DATE: JUL 09, 2023@18:51:13 AUTHOR: JANINE MARION COSIGNER: URGENCY: STATUS: COMPLETED [facility] Treatment requested from [facility] Home:Physical Therapy, Occupational Therapy Diagnosis for treatment: Weakness, Parkinsons VA Therapy authorization: Physical Therapy, Occupational Therapy Duration: Four weeks Criteria: High (up to 499 minutes per week) Dates approved: 07/10/23-08/10/23 Summary: 87 y/o with Parkinsons recently fell at home 07/07 due to syncope and R ankle sprain, now admitted to SNF for rehab. Goal is to return home with family. will benefit from OT/PT to improve strength, function, ADLs, mobility and increase independence to safely return home. Currently using EZ stand for transfers, requiring Ax2 for dressing, and some Assist with self feeding. E-consult and chart review total time: 13 minutes ADDITIONAL INFORMATION: This [facility] Physical/Occupational (PT/OT) and/or Speech Therapy authorization request was reviewed using the medical documentation, therapy evaluation(s) and therapy treatment plan(s) provided by the senior care. Supportive VA documentation was also reviewed if available. The [place] was not clinically examined by this provider as part of the review. [facility] therapy authorization reviews are conducted for the purposes of evaluating the appropriateness for therapy consistent with ID practices and approval for [place] payment for senior care therapy. Appropriate clinical care and medical clearance for therapy authorization requests are the responsibility of the [facility] senior care provider. A current order for all therapies requested is required from the licensed independent practitioner directly overseeing this [place]'s care at the [facility] senior care. /preethi/ JANINE MARION DO PHYSICIAN, PM&R Signed: 07/09/2023 18:55 Receipt Acknowledged By: 07/14/2023 10:14 /preethi/ KRISTINE MAGANA) ADVANCED GLASS SELECTOR JANINE MAROIN [facility]
--- OUTSIDE RECORDS SUMMARY | 2024-01-19 13:53 | XMS_ITS | Referral Summary ---
Author Name Unknown Organization [facility] Address [address] [place] [address] [address] Shaft And Steering Post Repairer Name Role Phone Katelyn Reyes M.D. Primary Care Provider [phone] Source Comments Patient records contain information from all sites at [facility]. For routine questions regarding patient records, call [phone] during business hours, M-F 8:00 AM - 5:00 PM Central Time. Record requests for emergency care only can be directed to [phone] at any time.[facility] Encounters Date Type Department Care Team Description 01/12/2024 Orders Only RST PCP [facility] Katelyn Reyes M.D. from Last 3 Months Allergies No known active allergies Medications Medication [...] after his BP was 70/42 w staring spell on 03/26. - At baseline patient has excellent home support and has optimized non- pharmacologic measures History - Noted to be orthostatic on exam back in Jul 2019. Was thought to be contributing to falls at that time - During his transitional care stay in April 2021 he continued to deal with orthostasis [...] resources that may be available in the [facility], which may not be immediate even with [...] 50-200 qHS. Continues to get PT through [facility] and Primary is Dr. Rich - Had [...] record here in 2006. Initially evaluated at [facility] with use of unknown oral medicine discontinued [...] feels like it is well controlled with gpbk-iji-adglndk acetaminophen and lidocaine patches 10/29/2021 - Thoracic [...] does not strain and describes BM as [place] 3. Endorses frequent passage of gas. - [...] in the context of worsened diet over holiday season. I will obtain BMP at this [...] point. Rash 09/07/2021 03/08/2022 Overview: Seen in [facility] on 09/02/21 for persistent itchy rash, primarily [...] feels like it is well controlled with kjcy-tmi-osjzhwf acetaminophen and lidocaine patches. 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 1 to 4 times per year [...] Answer Date Recorded PHQ-2 Score 0 12/11/2022 [facility] of Occupat ional Health - Occupational Stress [...] place to sleep or slept in a residential (including now)? 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 OPERATOR Gender Identity Male 05/07/2018 1:08 PM CDT [...] (178 lb 0.3 oz) 08/26/2023 10:48 AM CHOPPED STRAND OPERATOR Height 172.7 cm (5' 8) 07/02/2023 10:45 PM CDT Body Mass Index 27.07 07/02/2023 10:45 PM CDT Plan of Treatment Not on file Procedures Procedure Name Priority Date/Time Associated Diagnosis Comments EXTI BASIC METABOLIC PANEL, S/P Routine 11/17/2023 8:35 AM CHOPPED STRAND OPERATOR from Last 3 Months or Most Recently Relevant to Health Maintenance Advance Directives For more information, please contact: [phone] * Full Code (Latest Code Status on [...] 11:59 PM 03/29/2021 12:[address] Shaft And Steering Post Repairer Relationship Specialty Start Date End Date Katelyn Reyes M.D. [address] [place] [phone] PCP - General Internal Medicine 07/08/23
--- OUTSIDE RECORDS SUMMARY | 2024-01-19 13:53 | XMS_ITS ---
Author Name Unknown Organization [facility] Address [address] [place] [address] Care Team Providers Care Office Auditor Name Role Phone Katelyn Reyes M.D. Primary Care Provider Active Problems Problem Noted Date Diagnosed Date [...] resources that may be available in the [facility], which may not be immediate even with [...] record here in 2006. Initially evaluated at [facility] with use of unknown oral medicine discontinued [...] feels like it is well controlled with xijx-mit-ppqsurt acetaminophen and lidocaine patches 10/29/2021 - Thoracic back pain does not seem to be an active issue or contributing to his worsening mobility Last Assessment & Plan: No interventions needed Current Oncology Plans No current plan information found. Other Current Plans VASCULAR ACCESS PATENCY - PERIPHERAL INTRAVENOUS CATHETER AND RAPID INFUSION CATHETER* Plan Start Date:01/27/2023 Linked Problems Osteoporosis Treatment Medications No medications scheduled. Past Plans Radiation Treatments * No radiation treatments are documented for this patient in [facility]. Treatments may have been administered in another system. Resolved Problems Problem Noted Date Diagnosed Date [...] does not strain and describes BM as [place] 3. Endorses frequent passage of gas. - [...] has had a worse diet over the with increased amounts of sweets/salty food. His [...] point. Rash 09/07/2021 03/08/2022 Overview: Seen in [facility] on 09/02/21 for persistent itchy rash, primarily [...] feels like it is well controlled with teav-sjm-bknkktl acetaminophen and lidocaine patches. Does not report [...] Heart Failure 10/15/2007 10/11/2020 History Of Falling 1 Pain Knee Left 04/25/2021 Overview: 04/25/2021 No significant issues Pain Hip Left 04/25/2021 Overview: 04/25/2021 No significant issues
--- OUTSIDE RECORDS SUMMARY | 2024-01-19 13:53 | XMS_ITS | Encounter Summary ---
Author Name Department of Vetera [facility] Organization [facility] Address [address] [place] [address] Support Name Relationship Address Phone BRANDON Next [...] MEDIC ARE SUPPL EMENT Oct 05, 2016 [id number] [phone] RONALDO,P ETER PATIENT [place] MEDICARE SUPPLEMEN JUSTINA MEDIC ARE SUPPL EMENT Oct 05, 2016 [id number] [phone] RONALDO,P ETER PATIENT [place] MEDICARE SUPPLEMEN JUSTINA MEDIC ARE SUPPL EMENT Oct 05, 2016 [id number] [phone] RONALDO,P ETER PATIENT MEDICARE (WNR) MEDICARE (M) PART A Nov 05, 2001 PART A [id number] RONALDO,P ETER PATIENT MEDICARE (WNR) MEDICARE (M) PART B Nov 05, 2001 PART B [id number] [phone] RONALDO,P ETER PATIENT MEDICARE (WNR) MEDICARE (M) PART A Nov 05, 2001 PART A [id number] [phone] Hellen HIGGINS PATIENT MEDICARE (WNR) MEDICARE (M) PART B Nov 05, 2001 PART B [id number] [phone] Hellen HIGGINS NACHOBRANDT PATIENT Selected Encounter This section includes the information on record at [place] for the Encounter. Date/Time Encounter Type Encounter Description Reason Provider Source Nov 13, 2023 12:44 PM CASE MANAGEMENT [facility] FOLLOW-UP ICD-10-CM Z71.89 Other specified counseling JENNIFER DEJESUS Matt Encounter Template Text not used by PA Assessments - Encounter Diagnoses This section includes the primary and secondary diagnoses documented for the Encounter. Date/Time Primary/Secondary Diagnosis Diagnosis Name Provider Source Nov 16, 2023 12:52 PM PRIMARY Other specified counseling JENNIFER DEJESUS [facility] Plan of Treatment: Future Appointments (+ 6 months) and Future Tests (+/- 45 days) The Plan of Treatment section includes future care activities for the patient from all [place] treatmentfacilities. This section includes future appointments and future orders which are active, pending or scheduled. Future Appointments This section includes appointments that were scheduled to occur 6 months from the date of the Encounter, up to a maximum of 20 appointments. The data comes from all [facility]. Appointment Date/Time Appointment Type Appointme nt Facility Name Nov 26, 2023 01:29 PM AMBULATORY - NONE [facility] Dec 15, 2023 08:00 AM AMBULATORY - NONE [facility] Dec 24, 2023 05:00 PM AMBULATORY - REHAB MEDICIN E [facility] Feb 02, 2024 11:00 AM AMBULATORY - [...] of theEncounter. The data comes from all PA treatment [facility]. Test Date/Time Test Type Test Details Facility Name Nov 27, 2023 02:51 PM Consult Order [facility] Cons Occupational Therapy Technician's Choice [facility] Advance Directives: All historical and current Section Date Range: From patient's date of to the date document was created. This section includes ALL of a patient's completed or amended VA Advance and Rescinded Directives. The entries below indicate that a directive exists for the patient, but an actual copy is not included with this document. The data comes from all [place] facilities. Date Advance Directives Provider Source Jan 25, 2004 ADVANCE DIRECTIVE ONEIL KEITH ([facility]) Encounter Notes: All associated encounter notes This section contains the clinical notes associated to the Encounter. 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 10% S/C PROSTATE GLAND CONDITION 20% 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% 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% S/C PARALYSIS OF FIFTH CRANIAL NERVE 10% S/C PARALYSIS OF FIFTH CRANIAL NERVE 10% S/C LOSS OF SENSE OF SMELL 10% S/C TINNITUS 10% S/C PARALYSIS OF ELEVENTH CRANIAL NERVE 20% S/C PARALYSIS OF MUSCULOSPIRAL NERVE 20% 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 Explanation: sleeping SUICIDE SCREEN Annual C-SSRS completed. SATISFACTION Unable to assess /Reconnaissance Crewmember satisfaction. Explanation: sleeping [facility] staff provided a copy of the PA reference sheet, containing contact information for [facility] staff and the [facility], to the /Reconnaissance Crewmember: N/A, annual requirement previously met [place] appears to be well adjusted to residing in this [facility]: Yes [place] is offered daily activities: Yes [place] is offered spiritual services: Yes [facility] STAFF OBSERVATIONS Quality of sensory and environmental aesthetic is adequate: Yes Facility cleanliness is adequate: Yes Fluids available: Yes [place]'s appearance: [place] appeared: Appropriately groomed, dressed for time of day, dressed for weather/season, body clean, clothes clean [facility] staff is courteous: Yes Total time spent for visit (in minutes) 2 min Total travel time 35 min ------ INFORMATION OBTAINED FROM [facility] MEDICAL RECORD REVIEW ------ Hospitalization since placement or last visit: No [...] ordered: Yes Most recent weight taken by [facility] staff: Weight (lbs): 174 Date: November 12, 2023 Weight loss of 5% or greater in the last 3 months: No Diet: Regular Skin assessment completed at appropriate intervals: Yes Pressure injuries: None Specialized wound care: Other: Details of wound care: Right inner thigh blister Pain management is effective: Yes DOCUMENTATION OVERSIGHT Physician, Nursing, and 21 Dealer documentation completed at regular intervals in accordance with State regulations: Yes assessed by a provider at required intervals: Yes As needed (PRN) medication effectiveness is documented: Yes [facility] Plan of Care updated: Yes Date Plan of Care updated: September 16, 2023 Care plan reflects 's individualized care needs and includes multidisciplinary participation: Yes LIFE-SUSTAINING TREATMENT 's preferences for Life-Sustaining Treatment (LST) are documented and have been reviewed in the [facility] medical record: Yes, no further review indicated at this time. [place]'s Life-Sustaining Treatment (LST) progress note and orders are documented in the PA medical record: No Explanation: NA [facility] documented code status SAFETY ------ has not fallen since placement or last visit. No medication errors since placement or last visit. attempted to elope from the facility: No Evidence of abuse/neglect either confirmed or under investigation: No Other adverse event(s) since placement or last visit: No LEVEL OF CARE MDS RUG or PDPM score is consistent with the [place]'s care needs. DISPOSITION [place] appears with low care needs where an alternative level of care may be appropriate: No Discharge plan in place: N/A, is receiving patient care coordinator care (LTC) PROGRAM CARE COORDINATION PLAN - PA PLAN OF CARE: Continue to provide routine oversight of care at [facility] Total time spent for chart review (in minutes) 15 min /es/ HOMAR MCKINNON MEAL COOK HOMAR Signed: 11/16/2023 12:52 JENNIFER DEJESUS [facility]
--- OUTSIDE RECORDS SUMMARY | 2024-01-19 13:53 | XMS_ITS | Encounter Summary ---
Author Name Unknown Organization [facility] Address [address] [place] [address] Care Team Providers Care Chicken Cleaner Name Role Phone Katelyn Reyes M.D. Primary Care Provider [phone] Reason for Referral * Outpatient (Routine) - Authorized Specialty Diagnoses / Procedures Referred By Contitz t Referred To Contact [facility] Katelyn Reyes M.D. [address] [place] [phone] [facility] Referral ID Status Reason Start Date Expiration Date V isits Requested Visits Authorized [id number] Authorized 10/13/2023 10/12/2026 1 1 Scheduling Instructions Medicare annual provider visit/HCC gaps Do not schedule prior to due date to ensure insurance coverage Visit: Medicare Annual Wellness due on 12/13/2023. OLOGY CLERK Encounter Details Date Type Department Care Team (Latest Contact Info) Description 10/13/2023 Orders Only RST PCP [facility] Katelyn Reyes M.D. [address] [place] [phone] Social History Tobacco Use Types Packs/Day Years [...] 12/11/2022 How often do you attend [facility] or christianity services? 1 to 4 times per year [...] Answer Date Recorded PHQ-2 Score 0 12/11/2022 [facility] [place] of Occupat ional Health - Occupational Stress [...] Sex Assigned at Male 08/26/2023 10:53 AM RADIOLOGY CLERK Gender Identity Male 05/07/2018 1:08 PM CDT Sexual Orientation Straight 05/07/2018 1: 08 PM CDT documented as of this encounter Plan of Treatment Scheduled Referrals Name Type Priority Associated Diagnoses Orde r Schedule [facility] office visit (clinic) Outpatient Referral Routine Expected: 11/10/2023, Expires: 04/10/2024 documented as of this encounter Visit Diagnoses Not on filedocumented in this encounter Additional Health Concerns Assessment Noted Time PHQ-9 Depression Total Score: 1 03/22/20 21 12:00 AM CDT documented as of this encounter Care Teams Chicken Cleaner Relationship Specialty Start Date End Date Katelyn Reyes M.D. [address] [place] [phone] PCP - General Internal Medicine 07/08/23 documented as of this encounter
--- OUTSIDE RECORDS SUMMARY | 2024-01-19 13:53 | XMS_ITS | Encounter Summary ---
Author Name Department of Vetera ns Affairs Organization [facility] Address [address] [place] [address] Support Name Relationship Address Phone BRANDON Next [...] MEDIC ARE SUPPL EMENT Oct 05, 2016 [id number] RONALDO,P ETER PATIENT [place] MEDICARE SUPPLEMEN JUSTINA MEDIC ARE SUPPL EMENT Oct 05, 2016 [id number] RONALDO,P ETER PATIENT BCBS [place] MEDICARE SUPPLEMEN JUSTINA MEDIC ARE SUPPL EMENT Oct 05, 2016 [id number] 1A [phone] RONALDO,Hellen ETER PATIENT MEDICARE (WNR) MEDICARE (M) PART B Nov 05, 2001 PART B [id number] [phone] RONALDO,P ETER PATIENT MEDICARE (WNR) MEDICARE (M) PART A Nov 05, 2001 PART A [id number] RONALDO,P ETER PATIENT MEDICARE (WNR) MEDICARE (M) PART A Nov 05, 2001 PART A [id number] Hellen HIGGINS [place] PATIENT MEDICARE (WNR) MEDICARE (M) PART B Nov 05, 2001 PART B [id number] ROGELIOMAUCARLOSHellen [place] PATIENT Selected Encounter This section includes the information on record at [place] for the Encounter. Date/Time Encounter Type Encounter Description Reason Provider Source Aug 06, 2023 06:01 PM Outpatient Encounter PM&RS PHYSICIAN ICD-10-CM G20.A2 Parkinson's disease without dyskinesia, with fluctuations DONN TRAMMELL Matt Encounter Template Text not used by [place] Assessments - Encounter Diagnoses This section includes the primary and secondary diagnoses documented for the Encounter. Date/Time Primary/Secondary Diagnosis Diagnosis Name Provider Source Aug 06, 2023 06:08 PM PRIMARY Parkinson's disease without dyskinesia, with fluctuations DONN TRAMMELL [facility] Plan of Treatment: Future Appointments [...] 20 appointments. The data comes from all [place] treatment facilities. Appointment Date/Time Appointment Type Appointme nt Facility Name Oct 14, 2023 02:30 PM AMBULATORY - NONE [facility] Nov 26, 2023 01:29 PM AMBULATORY - NONE [facility] Dec 15, 2023 08:00 AM AMBULATORY - NONE [facility] Dec 24, 2023 05:00 PM AMBULATORY - REHAB MEDICIN [facility] Feb 02, 2024 11:00 AM AMBULATORY - MEDICINE [facility] ([facility]) Advance Directives: All historical and current Section Date Range: From patient's date of to the date document was created. This section includes ALL of a patient's completed or amended [place] Advance and Rescinded Directives. The entries below indicate that a directive exists for the patient, but an actual copy is not included with this document. The data comes from all [facility]. Date Advance Directives Provider Source Jan 25, 2004 ADVANCE DIRECTIVE ONEIL KEITH ([facility]) Encounter Notes: All associated encounter notes This section contains the clinical notes associated to the Encounter. Date/Time Encounter Note(s) Provider Source Aug 06, 2023 06:01 PM COMMUNITY SNF CARE CONSULT: LOCAL TITLE: [facility] THERAPY AUTHORZATION CONSULT STANDARD TITLE: COMMUNITY SNF CARE CONSULT DATE OF NOTE: AUG 06, 2023@18:01 ENTRY DATE: AUG 06, 2023@18:01:32 AUTHOR: DONN TRAMMELL EXP COSIGNER: URGENCY: STATUS: COMPLETED [facility] Author[facility]:Physical Therapy, Occupational Therapy Diagnosis for treatment: Weakness, Parkinsons [place] Therapy authorization: Physical Therapy, Occupational Therapy Duration: Four weeks Criteria: High (up to 499 minutes per week) Dates approved: 08/06/23 - 09/03/23 Summary: 87 y/o with Parkinsons recently fell at home 07/07 due to syncope and R ankle sprain, now admitted to SNF for rehab. Goal is to return home with family. has completed 4 weeks of therapy thus far in the [place], including OT/PT to improve strength, function, ADLs, mobility and increase independence to safely return home. He is making some gains in mobility and ADL functions, although still requiring min-mod A for transfers, toileting and dressing. Doing better with ambulation using U-step walker with assist for balance and cues for safety. SLUMS noted to be 09/03, CPT 4.4/5.6. Ongoing therapy appears appropriate. Prior therapy authorization: 07/10/23-08/10/23 (PT/OT) E-consult and chart review total time: 15 minutes ADDITIONAL INFORMATION: This [facility] home Physical/Occupational (PT/OT) and/or Speech Therapy authorization request was reviewed using the medical documentation, therapy evaluation(s) and therapy treatment plan(s) provided by the skilled nursing. Supportive VA documentation was also reviewed if available. The was not clinically examined by this provider as part of the review. [facility] therapy authorization reviews are conducted for the purposes of evaluating the appropriateness for therapy consistent with [place] practices and approval for VA payment for skilled nursing therapy. Appropriate clinical care and medical clearance for therapy authorization requests are the responsibility of the [facility] skilled nursing provider. A current order for all therapies requested is required from the licensed independent practitioner directly overseeing this [place]'s care at the [facility] skilled nursing. /preethi/ DONN TRAMMELL MD STAFF PHYSICIAN Signed: 08/06/2023 18:08 Receipt Acknowledged By: 08/07/2023 08:17 /preethi/ KRISTINE MAGANA) [employer] GUARD SUPERVISOR DONN TRAMMELL [facility]
--- OUTSIDE RECORDS SUMMARY | 2024-01-19 13:53 | XMS_ITS | Encounter Summary ---
Author Name [facility] of [facility] Organization [facility] Address [address] [place] [address] Support Name Relationship Address Phone BRANDON Next [...] MEDIC ARE SUPPL EMENT Oct 05, 2016 [id number] [phone] HEABDULLAHI,P ETER PATIENT [place] MED[place] SUPPLEMEN JUST[place] MEDIC ARE SUPPL EMENT Oct 05, 2016 [id number] [phone] HEGSETH,P ETER PATIENT [place] MED[place] SUPPLEMEN JUSTINA MEDIC ARE SUPPL EMENT Oct 05, 2016 [id number] [phone] HEGSETH,P ETER PATIENT MEDICARE (WNR) MEDICARE (M) PART A Nov 05, 2001 PART A [id number] [phone] HEMAUETH,P ETER PATIENT MEDICARE (WNR) MEDICARE (M) PART B Nov 05, 2001 PART B [id number] [phone] HEMAUETH,P ETER PATIENT MEDICARE (WNR) MEDICARE (M) PART A Nov 05, 2001 PART A [id number] [phone] Hellen HIGGINS NACHOBRANDT PATIENT MEDICARE (WNR) MEDICARE (M) PART B Nov 05, 2001 PART B [id number] [phone] ROGELIOHellen FERNANDO [place] PATIENT Selected Encounter This section includes the information on record at [place] for the Encounter. Date/Time Encounter Type Encounter Description Reason Provider Source Jan 30, 2023 11:00 AM OFFICE O/P EST MOD 30-39 MIN PRIMARY CARE/MEDICINE ICD-10-CM Z00.00 Encntr for general adult medical exam w/o abnormal findings JAVIER RICH Matt Encounter Template Text not used by [place] Assessments - Encounter Diagnoses This section includes the primary and secondary diagnoses documented for the Encounter. Date/Time Primary/Secondary Diagnosis Diagnosis Name Provider Source Jan 30, 2023 12:11 PM PRIMARY Encntr for general adult medical exam w/o abnormal findings JAVIER RICH ([facility]) Jan 30, 2023 12:11 PM SECONDARY Contact with and exposure to other hazardous substances JAVIER RICH ([facility]) Jan 30, 2023 12:11 PM SECONDARY Dilated cardiomyopathy JAVIER RICH ([facility]) Jan 30, 2023 12:11 PM SECONDARY Essential (primary) hypertension JAVIER RICH ([facility]) Jan 30, 2023 12:11 PM SECONDARY Heart failure, unspecified JAVIER RICH ([facility]) Jan 30, 2023 12:11 PM SECONDARY Hyperlipidemia, unspecified JAVIER IRCH ([facility]) Jan 30, 2023 12:11 PM SECONDARY Malignant neoplasm of prostate JAVIER RICH ([facility]) Jan 30, 2023 12:11 PM SECONDARY Other idiopathic peripheral autonomic neuropathy JAVIER RICH ([facility]) Jan 30, 2023 12:11 PM SECONDARY Parkinson's disease JAVIER RICH ([facility]) Plan of Treatment: Future Appointments (+ 6 months) and Future Tests (+/- 45 days) The Plan of Treatment section includes future care activities for the patient from all [place] treatmentfacilities. This section includes future appointments and future orders which are active, pending or scheduled. Future Appointments This section includes appointments that were scheduled to occur 6 months from the date of the Encounter, up to a maximum of 20 appointments. The data comes from all [place] treatment facilities. Appointment Date/Time Appointment Type Appointme nt Facility Name February 27, 2023 11:00 AM AMBULATORY - NONE [facility] Apr 15, 2023 01:00 PM AMBULATORY - NONE [facility] Vital Signs: All taken on the encounter date This section contains inpatient and outpatient Vital Signs collected on the date of the Encounter. Date/Time Temperature Pulse Blood Pressure Respiratory Rate SP02 Pain Height Weight Body Mass Index Source Jan 30, 2023 11:13 AM 99 F 58 /min 126/72 mm[Hg] 20 /min 95 % 0 164.4 lb 25 [facility] ([facility]) Social History: Smoking Status (Most current) and Tobacco Use (All prior to encounter date) This section includes the most current, and the historical, smoking and tobacco- related health factors from the [place] facility where the Encounter took place. Current Smoking Status This section includes the most current smoking, or tobacco-related health factor, from the [place] facility where the Encounter took place. Date/Time Current Smoking Status Comment Facil ity Jan 30, 2023 11:00 AM VA-TOBACCO NEVER USED [facility] ([facility]) Tobacco Use History This section includes a history of the smoking, or tobacco-related health factors, that were collected on or before the date of the Encounter. The data comes from the [place] facility where the Encounter took place. Date/Time Smoking Status/Tobacco Use Comment F acility Jan 24, 2022 01:30 PM VA-TOBACCO NEVER USED [facility] ([facility]) Jan 21, 2021 11:00 AM VA-TOBACCO NEVER USED [facility] ([facility]) Jan 09, 2020 11:21 AM VA-TOBACCO NEVER USED [facility] ([facility]) Dec 13, 2018 04:15 PM VA-TOBACCO NEVER USED IGOR ([facility]) Dec 04, 2017 03:03 PM LIFETIME NON-TOBACCO USER [facility] ([facility]) Dec 08, 2016 02:00 PM LIFETIME NON-TOBACCO USER [facility] ([facility]) Dec 07, 2015 10:46 AM LIFETIME NON-TOBACCO USER [facility] ([facility]) Apr 12, 2014 12:41 PM LIFETIME NON-TOBACCO USER [facility] ([facility]) Sep 13, 2007 01:05 PM LIFETIME NON-TOBACCO USER [facility] ([facility]) Advance Directives: All historical and current Section Date Range: From patient's date of to the date document was created. This section includes ALL of a patient's completed or amended VA Advance and Rescinded Directives. The entries below indicate that a directive exists for the patient, but an actual copy is not included with this document. The data comes from all [place] facilities. Date Advance Directives Provider Source Jan 25, 2004 ADVANCE DIRECTIVE ONEIL KEITH ([facility]) Encounter Notes: All associated encounter notes This section contains the clinical notes associated to the Encounter. Date/Time Encounter Note(s) Provider Source Jan 30, 2023 11:33 AM H & P NOTE: LOCAL TITLE: [facility] ANNUAL VISIT STANDARD TITLE: H & P NOTE DATE OF NOTE: JAN 30, 2023@11:33 ENTRY DATE: JAN 30, 2023@07:38:53 AUTHOR: JAVIER RICH COSIGNER: URGENCY: STATUS: COMPLETED Type of Visit: Face to Face Reason for Visit: Annual review of chronic medical conditions HPI: 87 year-old MALE here for his annual visit. was last seen on 01/24/2022 for his annual visit. Since that time there has been multiple communications in regards to home care services at home PT. Therapy is going well. Making a big difference. Has issues if he misses a session. Co-managed: [facility], PCP Neville Gabriel MD - INF 01/27/2023 osteoporosis - SVETA 01/22/2023 parkinsonism - TARI 01/16/2023 [place], [place], dermatoheliosis, history of skin cancer - [facility] 12/11/2022 annual Medicare exam - [facility] 12/11/2022 parkinsonism, CAD, CHF, skin cancer, HTN, - peripheral neuropathy, osteoporosis, leg cramps, kyphosis - Functional incontinence - EF 55% as of 03/22/2021 EF was ~30% in 2019 and December 2020. - RAD 12/10/2022 bone density, lab testing - [facility] 03/05/2022 CHF, CAD, HTN, orthostatic hypotension, parkinsonism Home medications: reviewed and updated Chest pain/chest pressure: none Shortness of breath: none - not as good as it was some issue Palpitations: none. some symptoms about a month ago, no need for nitro Lower extremity swelling: mild swelling R > L Home blood pressures: Some numbers are higher up to 140'2 but will flucuate Weight: about 8.5 lb weight loss from last year CPAP: no sleep apnea Sleep issues: 12 hours - leg cramps are a problem, will need to stretch a lot - increased the pramipexole Mood: seems ok Memory: harder to remember things Dizziness: Sometimes in the mornings - things will go black - will sit at the edge of the bed for a short time to resolve Urinary symptoms: Urinary flow: has been ok Hesitancy: sometimes an issue Emptying: feels ok Incontinence: using depends Night-time void: no issues, using urinal at night - 2 times GI symptoms: Heartburn/Reflux: none Diarrhea/Constipation: variable Arthritis: knees are a harder issue Vision: harder to see things because of neck weakness Hearing: issues with hearing aids Home blood sugar: no history of diabetes Review of systems: otherwise negative Past Medical History: 1. Parkinson's Disease (Dx 2013) 2. Prostate Cancer - s/p radical prostatectomy (10/1998). Timbo 3+3,pT2c,N0MX. 3. Nonischemic congestive cardiomyopathy 4. CHF - Congestive Heart Failure 5. HTN - Hypertension 6. Hyperlipidemia 7. Nephrolithiasis - s/p surgical lithotomy (1961), ESWL (early , 1998) 8. Hereditary and Idiopathic Peripheral Neuropathy - EMG suggest L5-S1 radiculopathies 9. GERD - Gastro-Esophageal Reflux Disease 10. Osteoarthritis 11. Sciatica 12. Solitary Nodule of Lung 13. Anxiety 14. Claw foot (pes cavus) 15. Seborrheic Keratosis 16. Onychomycosis 17. Sensorineural hearing loss 18. Tinnitus Past Surgical History: 1. Radical prostatectomy (10/1998) 2. T&A (1942) 3. Right inguinal hernia (2003) 4. Surgical lithotomy (1961) for Nephrolithiasis 5. Left Lithotripsy extracorporeal shock wave 6. Mohs Excision Family History: 1. Brother - Skin Cancer 2. Mother - from [place] 3. Father - from unknown cause Social History: 1. Lifetime Non-Smoker 2. ETOH Occasionally 3. No illicit drug use 4. 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 5. Marital status: 6. Service: Ed[employer] Allergies: NKDA Physical Exam: Temp: 99 F [37.2 C] (01/30/2023 11:13) Pulse:58 (01/30/2023 11:13) BP: 126/72 (01/30/2023 11:13) Resp: 20 (01/30/2023 11:13) O2 Sat: 95% (01/30/2023 11:13) Weight: 164.4 lb [74.57 kg] (01/30/2023 11:13) BMI: BMI not available without height Pain: 0 (01/30/2023 11:13) General: AAOx3, NAD, Healthy, sitting in wheelchair, decreased neck range of motion, hard to lift head HEENT: PERRL, EOMI, AT/NC, no scleral icterus, TM's clear bilaterally, throat without erythema, dentitia in good repair, no thyromegaly, no lymphadenopathy. CV: Regular rate and rhythm, no murmurs, no rubs, no gallops Lungs: clear to auscultation bilaterally, no crackles, no wheezing Abd: soft, NT/ND, No hepatosplenomegaly, +BS, no rebound, no guarding Extrem: no clubbing, cyanosis, or edema (minimal right ankle swelling) Neuro: non-focal Skin: recently treated spots on ears Labs: [facility] lab: 12/10/2022 WBC 7.5, hemoglobin 13.7, hematocrit 44.2, platelet 199, sodium 140, potassium 4.0, chloride 101, bicarb 29, AG 10, BUN 22, creatinine 1.06, EGFR 68, calcium 9.6, glucose 108, total bili 0.5, ALT 7, AST 22, alk phos 57, total protein 6.9, albumin 4.5, total cholesterol 140, triglycerides 46, HDL 67, LDL 62, hemoglobin A1c 5.9, TSH 1.8, urine creatinine 21, urine protein 5, protein creatinine ratio 0.24 Essential Medication List - reviewed with Patient/Caregiver FACILITY ALLERGY/ADR -------- [facility] No Known Allergies [facility] NO KNOWN ALLERGIES Medication list given to at end of visit Imaging DEXA scan 12/10/2022 osteopenia left hip, FRAX score for major osteoporotic fracture 7.6%, hip fracture 3.1% Assessment/Plan: 1. Parkinson's Disease - Follow up Neurology @ [facility] as indicated - Continue Carbidopa/Levodopa 25-100 2 1/2 pills 3 times daily - Continue carbidopa/levodopa 50-200mg ER 1 pill at bedtime 2. Prostate Cancer - Will not plan to recheck PSA 3. Nephrolithiasis - s/p surgical lithotomy (1961), ESWL (early , 1998) - Continue to monitor for symptoms 4. Hereditary and Idiopathic Peripheral Neuropathy - - Follow up Podiatry - Continue pregabalin 50mg at night, 25mg in the mornings - Continue duloxetine 30mg daily - Continue cream Amitriptyline 2/gabapentin 5/clonidine/lidocaine 5% - this is being done at outside pharmacy 5. HTN/non-ischemic cardiomyopathy - Continue aspirin 81 mg as needed - Continue furosemide 20mg twice daily - Continue metoprolol succinate 25 mg daily - Continue Losartan 25 mg Daily - Continue spironolactone 25 mg 1 pill daily - Cardiology at [facility] following 6. Hyperlipidemia - LDL Goal < 100 - Continue atorvastatin 40mg daily 7. Osteoarthritis/Sciatica - Continue Acetaminophen 500mg PO PRN pain 8. Tinnitus/Sensorineural Hearing Loss - Bilateral - Follow up Audiology - hearing aids are not working 9. Anxiety - Continue Duloxetine 30mg Daily 10. Health Care Maintenance - Colon Cancer Screening - not indicated, due to age - AAA Screening (Age > 65-75) - not indicated, lifetime nonsmoker - Lung Cancer Screening (Age 55-79) - not indicated, lifetime nonsmoker - Vaccinations: IM - Immunizations Immunization Series Date Facility Reaction Info COVID-19 (PFIZER), MRNA, LNP-S, P* 3 08/16/2021 [facility]* 2 11/18/2020 [facility] * <C> 1 10/28/2020 [facility] * <C> COVID-19 (PFIZER), MRNA, LNP-S, P* 03/05/2022 [facility] [place] INFLUENZA, UNSPECIFIED FORMULATIO* 07/01/2022 [facility] PNEUMOCOCCAL CONJUGATE PCV 13 08/14/2015 [facility]* <C> PNEUMOCOCCAL, UNSPECIFIED FORMULA* 03/08/2013 No Site <C> TDAP 12/22/2013 [facility] * <C> ZOSTER LIVE 03/08/2013 [facility] * <C> 12/17/2010 [facility] * <C> ZOSTER RECOMBINANT 2 06/11/2018 [facility]* 1 01/14/2018 [facility]* CVF - Future Appointment: 01/30/2023 11:00 MAIDA PACT [facility] 02/27/2023 11:00 COM CARE-PODIATRY RTC in 1 year annual visit CPRS chart review/chart prep/[facility] review: 16 minutes Time with patient: 34 minutes Chart completion: 3 minutes Clinical Reminders: Medication Reconciliation: Education Evaluations *Was medication education provided for NEW medications or CHANGES to medications? (including medication name, dose, route, reason for use, and potential side effects). No new medications or medication changes during this encounter. TERATOGENIC MED & CONTRACEPTION REVIEW (Optional)... MEDICATION RECONCILIATION List Given: An updated medication list was provided to the patient/caregiver. Review Done: The medication list shown below was verified for accuracy and it includes all pending medications/active medications/all medications or discontinued within the last 90 days/all remote medications and non-VA medications. If a given category (i.e. remote meds) is not shown, that means that a patient doesn't have a medication(s) in that category. Allergies listed below were also reviewed/updated for accuracy. Allergies/ADR from [facility] may not display in CPRS. Use JLV MRT5 - Allergies/ADRs FACILITY ALLERGY/ADR -------- [facility] No Known Allergies [facility] NO KNOWN ALLERGIES Active and Recently Outpatient Medications (including Supplies): Issue Date Status Last Fill Pending Outpatient Medications Refills Expiration 1) AMMONIUM LACTATE 12% LOTION Qty: 480 PENDING Sig: APPLY THIN LAYER TOPICALLY EVERY Refills: 0 DAY EXTERNAL USE ONLY TO FEET FOR DRY SKIN Issue Date Status Last Fill Inactive Outpatient Medications Refills Expiration 1) AMMONIUM LACTATE 12% LOTION Qty: 240 Issu:01-24-22 for 30 days Sig: APPLY THIN LAYER Refills: 2 Last:05-26-22 EVERY DAY EXTERNAL USE ONLY TO Expr:01-25-23 FEET FOR DRY SKIN 2) DOXEPIN HCL 5% TOP CREAM Qty: 45 for 90 DISCONTINUED Issu:01-24-22 days Sig: APPLY TO AFFECTED AREA Refills: 3 Last:01-28-22 THREE TIMES A DAY Expr:01-25-23 3) LIDOCAINE 4% TOP CREAM Qty: 30 for 30 DISCONTINUED Issu:01-24-22 days Sig: APPLY SMALL AMOUNT TWICE (EDIT) Last:01-28-22 A DAY NEEDED FOR FOOT PAIN Refills: 3 Expr:01-25-23 4) LIDOCAINE 5% OINT Qty: 35 for 30 days DISCONTINUED Issu:01-28-22 Sig: APPLY SMALL AMOUNT TOPICALLY Refills: 3 Last:01-28-22 TWICE A DAY NEEDED FOR FOOT PAIN Expr:01-29-23 5) MAGNESIUM OXIDE 400MG TAB Qty: 120 for DISCONTINUED Issu:01-24-22 90 days Sig: TAKE ONE TABLET BY MOUTH Refills: 1 Last:01-28-22 EVERY OTHER DAY - TAKE 30-60 MINUTES Expr:01-25-23 BEFORE BEDTIME WITH GLASS OF WATER 6) OMEPRAZOLE 20MG EC CAP Qty: 90 for 90 DISCONTINUED Issu:01-24-22 days Sig: TAKE ONE CAPSULE BY MOUTH Refills: 3 Last:01-28-22 EVERY DAY ON AN EMPTY STOMACH, AT Expr:01-25-23 LEAST 30 MINUTES PRIOR TO A MEAL FOR STOMACH ACID Start Date Active Non-VA Medications Refills Expiration 1) Non-VA ACETAMINOPHEN 500MG TAB Sig: ACTIVE 1000MG MOUTH EVERY 6 HOURS NEEDED 2) Non-VA ASCORBIC ACID 500MG TAB Sig: ACTIVE 500MG MOUTH DAILY 5 TIMES PER WEEK 3) Non-VA ATORVASTATIN CALCIUM 80MG TAB ACTIVE SiMG MOUTH DAILY 4) Non-VA CARBIDOPA/LEVODOPA CAP,SA Si ACTIVE CAPSULE CARBIDOPA 50/LEVODOPA 200MG MOUTH AT BEDTIME 5) Non-VA CARBIDOPA/LEVODOPA TAB Si ACTIVE 1/2 CARBIDOPA 25/LEVODOPA 100MG TAB MOUTH THREE TIMES A DAY 6) Non-VA CHOLECALCIF 25MCG (D3-1,000UNIT) ACTIVE TAB SiMCG MOUTH DAILY 5 TIMES PER WEEK 7) Non-VA DOCUSATE NA 100MG CAP SiMG ACTIVE MOUTH TWICE A DAY 8) Non-VA DULOXETINE HCL 30MG EC CAP Sig: ACTIVE 30MG MOUTH EVERY DAY 9) Non-VA GUAIFENESIN 600MG SA TAB Sig: ACTIVE 600MG MOUTH TWICE A DAY 10) Non-VA LORATADINE 10MG TAB SiMG ACTIVE MOUTH TWICE A DAY 11) Non-VA LOSARTAN 25MG TAB SiMG ACTIVE MOUTH EVERY DAY 12) Non-VA METOPROLOL SUCCINATE 50MG SA TAB ACTIVE SiMG MOUTH DAILY 13) Non-VA MULTIVITAMIN CAP/TAB Si ACTIVE TABLET MOUTH DAILY 5 TIMES A WEEK 14) Non-VA NITROGLYCERIN 0.4MG SL TAB Sig: ACTIVE 0.4MG UNDER THE TONGUE EVERY 5 MINUTES FOR UP TO 3 DOSES IF NEEDED 15) Non-VA NON VA MED NOT LISTED ACTIVE MISCELLANEOUS Sig: P2-AMITRIPTYLINE 2/CLONIDINE 5/GABAPENTIN 5/LIDOCAINE 5% CREAM TOPICALLY DAILY 16) Non-VA PRAMIPEXOLE DIHYDROCHLORIDE 0.5MG ACTIVE TAB Si.5MG MOUTH AT BEDTIME 17) Non-VA PREGABALIN CAP,ORAL Si MG ACTIVE EVERY MORNING AND 50 MG AT BEDTIME MOUTH 18) Non-VA PSYLLIUM CAP,ORAL Sig: TAKE 2 ACTIVE CAPSULES (1.04 G TOTAL) MOUTH EVERY DAY 19) Non-VA SPIRONOLACTONE 25MG TAB Sig: ACTIVE 25MG MOUTH EVERY DAY 20) Non-VA TORSEMIDE TAB SiMG DAILY ACTIVE MOUTH EVERY DAY 27 Total Medications Prostate Cancer F/U PSA: Patient declines PSA testing at this time. Toxic Exposure Screening Follow-Up: /caregiver has health or medical concerns related to their concern of environmental exposure. Concern: Parkinsonism, is already 100% service connected The following connections were provided to the [place]/caregiver: [employer] (VBA) for Benefits/claims: Commercial Loan Analyst/Organization (VSO) [email or web address]/find-[email or web address]-c [email or web address].html /preethi/ JAVIER RICH MD PHYSICIAN Signed: 01/30/2023 12:11 JAVIER RICH ([facility]) Jan 30, 2023 11:21 AM ADVANCE DIRECTIVE: LOCAL TITLE: AD NOTIFICATION AND SCREENING STANDARD TITLE: ADVANCE DIRECTIVE DATE OF NOTE: JAN 30, 2023@11:21 ENTRY DATE: JAN 30, 2023@11:21:48 AUTHOR: HADLEY MORTENSEN EXP COSIGNER: URGENCY: STATUS: COMPLETED ADVANCE DIRECTIVE NOTIFICATION: Patient was given written notification of the following rights: 1. Accept or refuse any medical treatment. 2. Complete a durable power of tax attorney for health care. 3. Complete a living will. ADVANCE DIRECTIVE SCREENING: Does patient have an Advance Directive? The patient has an Advance Directive. Does the patient wish to make any changes or revoke their current Advance Directive? Yes, the patient has an Advance Directive, but it is not in the medical record. was asked to obtain a copy for their medical record. /preethi/ HADLEY MORTENSEN LPN LPN [facility] Signed: 01/30/2023 11:22 HADLEY MORTENSEN ([facility]) Jan 30, 2023 11:15 AM PRIMARY CARE MAAMEI HOMA NOTE: LOCAL TITLE: [facility] NURSING PROGRESS NOTE STANDARD TITLE: PRIMARY CARE NURSING NOTE DATE OF NOTE: JAN 30, 2023@11:15 ENTRY DATE: JAN 30, 2023@11:15:20 AUTHOR: HADLEY MORTENSEN COSIGNER: URGENCY: STATUS: COMPLETED TYPE OF VISIT: Appointment Check In Type of appointment: In-person appointment REASON FOR VISIT: Annual exam, co-managed by [facility] ALLERGIES: Patient has answered NKA VITAL SIGNS: Blood Pressure: 126/72 (01/30/2023 11:13) Pulse: 58 (01/30/2023 11:13) Respiration: 20 (01/30/2023 11:13) Temperature: 99 F [37.2 C] (01/30/2023 11:13) Weight: 164.4 lb [74.57 kg] (01/30/2023 11:13) Height: Unavailable (01/30/2023 11:13) BMI: BMI not available without height O2 Sat: 95% (01/30/2023 11:13) Pain: 0 (01/30/2023 11:13) PAIN SCREEN: Patient is not having significant pain that they wish to discuss with their provider today. Toxic Exposure Screening: The /caregiver was asked if they believe the experienced any toxic exposure(s), such as Airborne Hazards and Open Burn Pit, [place] War related exposures, Agent Pondera, Radiation, contaminated water at [place] or other such exposures, while serving in the Armed Forces. /caregiver believes the [place] was exposed to the following while serving in the Armed Forces: Agent Pondera: /caregiver was made aware of educational resources that includes information on the Registry Program, presumptive conditions and how to file a claim. Printed information was offered and provided if desired. No questions at this time [place]/caregiver was informed of local points of contact. Contact information for local resources: - Airborne Hazards and Burn Pit Exposures - Public Health (va.gov) - Veterans Benefits for claims submission: Have the call or have them visit the following web address for online scheduling: [email or web address] / - [place] Healthcare Enrollment: -VETS (7556) - Find a [place] Commercial Loan Analyst (VSO): Have the call 2-924-LDBRMZP or look up their VSO at: [email or web address]/find-[email or web address]-c vso.html - [facility] Navigators: Dr. Ivan Ruvalcaba: [phone] Dr. Manuel Travis: [phone] Toxic Exposure Screening Follow-Up reminder is needed. Name of person notified: Dr Rich Suicide Screen: C-SSRS Screening [place] Suicide Severity Rating Scale (C-SSRS) screener 1. Over the past month, have you wished you were or wished you could go to sleep and not wake up? No 2. Over the past month, have you had any actual thoughts of killing yourself? No 3. Over the past month, have you been thinking about how you might do this? Response not required due to responses to other questions. 4. Over the past month, have you had these thoughts and had some intention of acting on them? Response not required due to responses to other questions. 5. Over the past month, have you started to work out or worked out the details of how to kill yourself? Response not required due to responses to other questions. 6. If yes, at any time in the past month did you intend to carry out this plan? Response not required due to responses to other questions. 7. In your lifetime, have you ever done anything, started to do anything, or prepared to do anything to end your life (for example, collected pills, obtained a gun, gave away valuables, went to the roof but didn't jump)? No 8. If YES, was this within the past 3 months? Response not required due to responses to other questions. Depression Screening: Perform PHQ-2 A PHQ-2 screen was performed. The score was 0 which is a negative screen for depression. Over the past two weeks, how often have you been bothered by the following problems? 1. Little interest or pleasure in doing things Not at all 2. Feeling down, depressed, or hopeless Not at all Alcohol Use Screen (AUDIT-C): Alcohol Screen: SCREEN FOR ALCOHOL (AUDIT-C) An alcohol screening test (AUDIT-C) was negative (score=1). 1. How often did you have a drink containing alcohol in the past year? Monthly or less 2. How many drinks containing alcohol did you have on a typical day when you were drinking in the past year? One or two drinks 3. How often did you have six or more drinks on one occasion in the past year? Never PTSD Screening: PC-PTSD-5 A PTSD screening test (PC-PTSD-5) was positive (score=0). IN THE PAST MONTH, have you ever had any experience that was so frightening, horrible or upsetting, such as: A serious accident or fire a physical or sexual assault or abuse An earthquake or flood A war Seeing someone be killed or seriously injured Having a loved one through homocide or suicide Have you ever experienced this kind of event? YES 1. Had nightmares about the event(s) or thought about the event(s) when you did not want to? NO 2. Tried hard not to think about the event(s) or went out of your way to avoid situations that reminded you of the event(s)? NO 3. Been constantly on guard, watchful, or easily startled? NO 4. [place] numb or detached from people, activities, or your surroundings? NO 5. [place] guilty or unable to stop blaming yourself or others for the event(s) or any problems the event(s) may have caused? NO Nursing Annual Screening: Fall History Screen During the past 12 months, have you had any falls? Patient reports having one fall without injury requiring treatment. MEDICATIONS: Patient is on one of the following medication classes: Antihypertensives, Antidepressants, Antipsychotics, Diuretics, or Controlled substance medication used for pain. FALL RISK ADVICE: Fall Risk Advice provided. Handout entitled Fall Prevention At Home reviewed and given to patient and/or significant other. Script Talk Screen Are you able to read your prescription bottles with your glasses, magnifiers or other aids? Yes or patient not taking any prescriptions. Skin Screen Patient reports any current pressure ulcers, a history of pressure ulcers, or a wound from a medical officer psychiatry or Patient is bed-confined or a wheelchair-user or Patient requires assistance to transfer/change position No, Skin Screen is Negative Home Abuse/Violence Screen Is your home free of abuse and violence? Yes MOVE! Program Screen Body Mass Index (BMI)= BMI not available without height [place]: Collection DT Specimen Test Name Result Units Ref Range 01/24/2022 14:31 BLOOD HEMOGLOBIN A1C 6.2 H % 4.0 - 6.0 [place] Hgb A1C: No data available [place] Hgb A1C: No data available Point of Care Hgb A1C: POC HGB A1C____ Outpatient Nutrition Screen Body Mass Index (BMI)= BMI not available without height [place]: Collection DT Specimen Test Name Result Units Ref Range 01/24/2022 14:31 BLOOD HEMOGLOBIN A1C 6.2 H % 4.0 - 6.0 [place] Hgb A1C: No data available [place] Hgb A1C: No data available Point of Care Hgb A1C: POC HGB A1C____ Is patient's BMI less than 18.5? No Does patient have swallowing, coughing, or chewing problems affecting oral intake? No Has patient experienced unplanned weight loss or gain greater than 10 pounds over the last 2 months? No Is patient's Hgb A1C (Glycosylated Hemoglobin) greater than 9.5? No Is patient receiving Total Parenteral Nutrition (TPN) or Tube Feedings? No Patient Health Education Screen BARRIERS/SPECIAL NEEDS: Physical limitations Hearing limitations PREFERRED STYLE OF LEARNING: No preference stated Client Assistive Service (MIRIAM) Screen Does the patient require assistance with outpatient visit? No Tobacco Use Screening: The patient has never used tobacco. COVID-19 Immunization Booster: Refused Pfizer Bivalent COVID-19 booster Immunization: COVID-19 (Mlog), MRNA, LNP-S, BIVALENT BOOSTER, PF, 30 MCG/0.3 ML DOSE Refusal Reason: PATIENT DECISION Patient refuses all immunization(s) in the COVID-19 group Date Documented: 01/30/23 11:21 /preethi/ BRITANY CHA LPN [facility]OC Signed: 01/30/2023 11:21 HADLEY MORTENSEN ([facility])
--- OUTSIDE RECORDS SUMMARY | 2024-01-19 13:53 | XMS_ITS | Continuity of Care Document ---
Author Name [facility] Organization [facility] Care Team Providers Care C Web Developer Name Role Phone [facility] Unavailable Unavailable Problems Combined list of problems from Department of Defense and Veterans Affairs facilities. It does not include entries that were removed or entered in error. Problem Status Onset Date Problem Type Date of Resolution Comments Source Exposure to potentially hazardous substance (SCT 670447039914577) Active 024 Condition Dec 11, 2023 Entered By: ANTONIO LOZANO Comment: [facility] MARISA Documentation Initiative [facility] Anxiety (SCT 14179797) Active Condition [place] ([facility]) CHF - Congestive Heart Failure (SCT 03021501) Active Condition [place] [facility] Claw foot Active Condition [place] [facility]) DJD Active Condition [facility] ESOPHAGEAL REFLUX/GERD Active Condition [facility] GERD - Gastro-Esophageal Reflux Disease (SCT 193214652) Active Condition [place] ([facility]) Hard of Hearing Active Condition [facility] HTN - Hypertension (SCT 17523537) Active Condition [place] ([facility]) Hyperlipidemia (SCT 50262603) Active Condition [place] [facility] Idiopathic peripheral neuropathy Active Condition [place] [facility] Inflamed seborrhoeic keratosis Active Condition [place] [facility]) Kidney stones Active Condition [facility] MALIGN NEOPL PROSTATE Active Condition [facility] Nephrolithiasis Active Condition Jan 09, 2020 Entered By: BAYRON MAHONEY Comment: s/p surgical lithotomy (1961), ESWL (early , 1998) [place] [facility] Nonischemic congestive cardiomyopathy Active Condition [place] ([facility]) OA - Osteoarthritis (SCT 154980925) Active Condition [place] ([facility]) Onychomycosis (SNOMED CT 417944027) Active Condition [facility] Parkinson's disease Active Condition [place] [facility]) Prostate Cancer (SCT 316380806) Active Condition Jan 09, 2020 Entered By: BAYRON MAHONEY Comment: s/p radical prostatectomy (10/1998). Timbo 3+3,pT2c,N0MX. [place] ([facility]) Restless leg Active Condition [facility] Sciatica Active Condition [facility] Sensorineural Hearing Loss, Bilateral ([facility] 650861774) Active Condition [place] ([facility]) Solitary Nodule of Lung ([facility] 849108381) Active Condition [place] [facility]) Tinnitus ([facility] 75894525) Active Condition [place] ([facility]) URINARY INCONTINENCE Active Condition [facility] Accidental Fall on or from other Stairs or Steps Inactive Condition 12/08/2016 February 10, 2013 Entered By: CATIE COVARRUBIAS Comment: fell off ladder spring 2012, >SCALP LACERATION>STAP LES [place] [facility] DYSPNEA Inactive Condition 12/08/2016 TG [facility] Numbness * (ICD-9-CM 782.0) Inactive Condition 06/10/2012 RACHNA [facility] ([facility] Diagnosis: ICD-10-CM R13.10 Dysphagia, unspecified Active Diagnosis [facility] Diagnosis: ICD-10-CM F41.9 Anxiety disorder, unspecified Active Diagnosis [facility] Diagnosis: ICD-10-CM Z71.89 Other specified counseling Active Diagnosis [facility] Diagnosis: ICD-10-CM B35.1 Tinea unguium Active Diagnosis [facility] Diagnosis: ICD-10-CM K21.9 Gastro-esophageal reflux disease without esophagitis Active Diagnosis [facility] Diagnosis: ICD-10-CM G20.A2 Parkinson's disease without dyskinesia, with fluctuations Active Diagnosis [facility] Diagnosis: ICD-10-CM M62.81 Muscle weakness (generalized) Active Diagnosis [facility] Diagnosis: ICD-10-CM Z00.00 Encntr for general adult medical exam w/o abnormal findings Active Diagnosis [place] ([facility] Medications Combined list of outpatient medications from Department of Defense and [facility] Affairs facilities.Medications provided include 1) outpatient medications from the last 15 months, and 2) patient-reported medications. Medication Details Route Status Patient Instructions Prescription Expires Prescription Number Last Dispense Date Ordering Provider Order Date Order Qty Source ACETAMINOPH EN 500MG TAB TAKE TWO TABLETS BY MOUTH EVERY 6 HOURS NEEDED ORALLY ACTIVE MIRANDA LOUIE NDA K 2020 [place] [facility] AMMONIUM LACTATE 12% LOTION APPLY THIN LAYER EVERY DAY UI ARCHITECT AL USE ONLY TO FEET FOR DRY SKIN TOPICA LLY ACTIVE 01/31/2024 [id number] MIRANDA LOUIE 2022 480 [facility] ([facility]) ASCORBIC ACID 500MG TAB TAKE ONE TABLET BY MOUTH DAILY 5 TIMES PER WEEK ORALLY ACTIVE MIRANDA LOUIE 2020 [facility] [facility] ([facility]) ATORVASTATI N CA 80MG TAB TAKE ONE-HALF TABLET BY MOUTH DAILY ORALLY ACTIVE MIRANDA LOUIE 2020 [place] [facility] ([facility]) CARBIDOPA/L EVODOPA CAP,SA TAKE 1 CAPSULE CARBIDOP A 50/LEVOD OPA 200MG BY MOUTH AT BEDTIME ORALLY ACTIVE MIRANDA LOUIE 2020 [facility] [facility] ([facility]) CARBIDOPA/L EVODOPA TAB TAKE 2 1/2 CARBIDOP A 25/LEVOD OPA 100MG TAB BY MOUTH THREE TIMES A DAY ORALLY ACTIVE MIRANDA LOUIE 2022 [facility] [facility] ([facility]) CHOLECALCIF VICTORINA 25MCG (1,000UNIT) TAB TAKE TWO TABLETS BY MOUTH DAILY 5 TIMES PER WEEK ORALLY ACTIVE MIRANDA LOUIE 2020 [facility] [facility] ([facility]) DOCUSATE NA 100MG CAP TAKE 1 CAPSULE BY MOUTH TWICE A DAY ORALLY ACTIVE MIRANDA LOUIE 2020 [facility] ([facility]) DULOXETINE HCL 30MG CAP,EC TAKE 1 CAPSULE BY MOUTH EVERY DAY ORALLY ACTIVE MIRANDA LOUIE 2022 [facility] [facility]) GUAIFENESIN 600MG TAB,SA TAKE ONE TABLET BY MOUTH TWICE A DAY ORALLY ACTIVE MIRANDA LOUIE 2020 [facility] [facility]) LORATADINE 10MG TAB TAKE ONE TABLET BY MOUTH TWICE A DAY ORALLY ACTIVE MIRANDA LOUIE 2021 [facility]) LOSARTAN 25MG TAB TAKE ONE TABLET BY MOUTH EVERY DAY ORALLY ACTIVE MIRANDA LOUIE 2020 [facility] [facility]) METOPROLOL SUCCINATE 50MG TAB,SA TAKE ONE TABLET BY MOUTH DAILY ORALLY ACTIVE MIRANDA LOUIE 2022 [facility] [facility]) MULTIVITAMI NS CAP/TAB TAKE ONE TABLET BY MOUTH DAILY 5 TIMES A WEEK ORALLY ACTIVE MIRANDA LOUIE 2020 [facility] [facility] ([facility]) NITROGLYCER IN 0.4MG TAB,SUBLING UAL DISSOLVE ONE TABLET UNDER THE TONGUE EVERY 5 MINUTES FOR UP TO 3 DOSES IF NEEDED SUBLIN GUAL ACTIVE MIRANDA LOUIE 2020 [facility] ([facility]) NON VA MED NOT LISTED MISCELLANEO US USE P2-AMITR IPTYLINE 2/CLONID INE 5/GABAPE NTIN 5/LIDOCA INE 5% CREAM TOPICALL Y DAILY TOPICA LLY ACTIVE MIRANDA LOUIE 2022 [facility] [facility] ([facility]) PRAMIPEXOLE DIHYDROCHLO RIDE 0.5MG TAB TAKE ONE TABLET BY MOUTH AT BEDTIME ORALLY ACTIVE MIRANDA LOUIE 2021 [place] [facility] ([facility]) PREGABALIN CAP,ORAL TAKE 25 MG EVERY MORNING AND 50 MG AT BEDTIME BY MOUTH ORALLY ACTIVE MIRANDA OLUIE 2020 [facility] [facility] ([facility]) PSYLLIUM CAP,ORAL TAKE TAKE 2 CAPSULES (1.04 G TOTAL) BY MOUTH EVERY DAY ORALLY ACTIVE MIRANDA LOUIE 2020 [place] [facility] ([facility]) SPIRONOLACT ONE 25MG TAB TAKE ONE TABLET BY MOUTH EVERY DAY ORALLY ACTIVE MIRANDA LOUIE 2021 [place] [facility]) TORSEMIDE TAB TAKE 5MG DAILY BY MOUTH EVERY DAY ORALLY ACTIVE MIRANDA LOUIE 2021 [facility] ([facility]) Immunizations Combined list of available immunizations from the Department of Defense and Veterans Affairs facilities. Immunization Series Date Given Administered By Site Reaction Lot Number CVX Code Drug Cotton Stomper Status Comments Source INFLUENZA, UNSPECIFIED FORMULATION [address] [facility] COVID-19 (PFIZER), MRNA, LNP-S, PF, 30 MCG/0.3 ML DOSE, MEDHAT-SUCROSE (AGES 12+ YEARS) [address] [facility] COVID-19 ([employer]), MRNA, LNP-S, PF, 30 MCG/0.3 ML DOSE 3 2020 208 complet ed [facility] INFLUENZA, UNSPECIFIED FORMULATION [address] [facility] COVID-19 ([employer]), MRNA, LNP-S, PF, 30 MCG/0.3 ML DOSE 2 2020 208 complet ed PFR; [id number]; 1 [place] [facility] COVID-19 ([employer]), MRNA, LNP-S, PF, 30 MCG/0.3 ML DOSE 1 2020 208 complet ed PFR; [id number]; 1 [place] ([facility]) INFLUENZA, UNSPECIFIED FORMULATION [address] [facility] INFLUENZA, SEASONAL, INJECTABLE 2018 141 complet ed per [facility] INFLUENZA, HIGH DOSE SEASONAL 2017 135 complet ed per [facility] ZOSTER RECOMBINANT 2 2017 187 complet ed [facility] ZOSTER RECOMBINANT 1 2017 187 complet ed [facility] INFLUENZA, HIGH DOSE SEASONAL 2016 135 complet ed per [facility] INFLUENZA, HIGH DOSE SEASONAL 2015 135 complet ed Per [facility] PNEUMOCOCCAL CONJUGATE PCV 13 2014 133 complet ed per [facility] INFLUENZA, SEASONAL, INJECTABLE 2014 141 complet ed per [facility] INFLUENZA, SEASONAL, INJECTABLE 2013 141 complet ed per [facility] TDAP 2013 115 complet ed [employer] [id number] 11/2015 [place] ([facility] INFLUENZA, HIGH DOSE SEASONAL 2012 135 complet ed [facility] ZOSTER LIVE 2012 121 complet ed [employer] [id number] 4 [place] ([facility]) PNEUMOCOCCAL, UNSPECIFIED FORMULATION 2012 109 complet ed [employer] [id number] [address] [facility] INFLUENZA, UNSPECIFIED FORMULATION [address] [facility] INFLUENZA, UNSPECIFIED FORMULATION [address] [facility] ZOSTER LIVE 2010 121 complet ed [employer] [id number] 11/02/11 [place] [facility] INFLUENZA, UNSPECIFIED FORMULATION [address] [facility] INFLUENZA, UNSPECIFIED FORMULATION [address] [facility] INFLUENZA, UNSPECIFIED FORMULATION [address] [facility] INFLUENZA (HISTORICAL) [address] [facility] TD(ADULT) UNSPECIFIED FORMULATION 2005 139 complet ed per pt reporting [facility] INFLUENZA (HISTORICAL) 2004 88 complet ed per pt reportign [facility] INFLUENZA (HISTORICAL) 2003 88 complet ed per pt reporting [facility] INFLUENZA (HISTORICAL) 2002 88 complet [address] pt reports [facility] INFLUENZA (HISTORICAL) [address] [facility] INFLUENZA (HISTORICAL) [address] [facility] INFLUENZA, UNSPECIFIED FORMULATION 1999 88 complet ed [facility] PNEUMOCOCCAL, UNSPECIFIED FORMULATION 1998 109 complet ed [facility] PNEUMOCOCCAL, UNSPECIFIED FORMULATION [address] [facility] TD(ADULT) UNSPECIFIED FORMULATION 1996 139 complet ed [facility] TD(ADULT) UNSPECIFIED FORMULATION 1995 139 complet ed [facility] TD(ADULT) UNSPECIFIED FORMULATION 1993 139 complet ed [facility] Results Combined list of recent chemistry, hematology and other laboratory results from Department of Defense and Veterans Affairs, ranging from 15 months to all on record, depending upon the facility. Order Name Results Value Reference Range Date Interpretation Specimen Comments Source HEMOGLOBI N A1C HEMOGLOBIN A1C/HEMOGLO BIN.TOTAL IN BLOOD 6.2 4.0 - 6.0 01/24 H Specimen Type: BLOOD No comment entered. Ordering Provider: JORDON LOUIE Report Released Date/Time: Jan 24, 2022 02:24 PM Reporting Lab: [facility] [address] Performing Lab: [facility] [address] [place] ([facility] PSA PROSTATE SPECIFIC AG [MASS/VOLUM E] IN SERUM OR PLASMA <0.01 <4.00 - 4.00 01/24 Specimen Type: SERUM No comment entered. Ordering Provider: JORDON LOUIE Report Released Date/Time: Jan 24, 2022 02:24 PM Reporting Lab: [facility] [address] Performing Lab: [facility] [address] [place] [facility] LIPID PANEL,NON -FASTING CHOLESTEROL [MASS/VOLUM E] IN SERUM OR PLASMA 117 <199 - 199 01/24 Specimen Type: PLASMA No comment entered. Ordering Provider: JORDON LOUIE Report Released Date/Time: Jan 24, 2022 02:24 PM Reporting Lab: [facility] [address] Performing Lab: [facility] [address] [place] [facility] LIPID PANEL,NON -FASTING CHOLESTEROL IN HDL [MASS/VOLUM E] IN SERUM OR PLASMA 50 40 01/24 Specimen Type: PLASMA No comment entered. Ordering Provider: JORDON LOUIE Report Released Date/Time: Jan 24, 2022 02:24 PM Reporting Lab: [facility] [address] Performing Lab: [facility] [address] [place] [facility]) LIPID PANEL,NON -FASTING CHOLESTEROL IN LDL [MASS/VOLUM E] IN SERUM OR PLASMA BY CALCULATION 60 <99 - 99 01/24 Specimen Type: PLASMA No comment entered. Ordering Provider: JORDON LOUIE Report Released Date/Time: Jan 24, 2022 02:24 PM Reporting Lab: [facility] [address] Performing Lab: [facility] [address] [place] [facility] LIPID PANEL,NON -FASTING CHOLESTEROL IN VLDL [MASS/VOLUM E] IN SERUM OR PLASMA BY CALCULATION 7 <29 - 29 01/24 Specimen Type: PLASMA No comment entered. Ordering Provider: JORDON LOUIE Report Released Date/Time: Jan 24, 2022 02:24 PM Reporting Lab: [facility] [address] Performing Lab: [facility] [address] [place] [facility] LIPID PANEL,NON -FASTING CHOLESTEROL NON HDL [MASS/VOLUM E] IN SERUM OR PLASMA 67 <129 - 129 01/24 Specimen Type: PLASMA No comment entered. Ordering Provider: JORDON LOUIE Report Released Date/Time: Jan 24, 2022 02:24 PM Reporting Lab: [facility] [address] Performing Lab: [facility] [address] [place] ([facility]) LIPID PANEL,NON -FASTING TRIGLYCERID E [MASS/VOLUM E] IN SERUM OR PLASMA 37 <149 - 149 01/24 Specimen Type: PLASMA No comment entered. Ordering Provider: JORDON LOUIE Report Released Date/Time: Jan 24, 2022 02:24 PM Reporting Lab: [address] Performing Lab: [address] [place] ([facility]) COMPREHEN SIVE METABOLIC PANEL+MG CREATININE [MASS/VOLUM E] IN SERUM OR PLASMA 0.9 0.7 - 1.2 01/24 Specimen Type: PLASMA No comment entered. Ordering Provider: JORDON LOUIE Report Released Date/Time: Jan 24, 2022 02:24 PM Reporting Lab: [place] [address] Performing Lab: [address] ([facility]) COMPREHEN SIVE METABOLIC PANEL+MG UREA NITROGEN [MASS/VOLUM E] IN SERUM OR PLASMA 18 8 - 26 01/24 Specimen Type: PLASMA No comment entered. Ordering Provider: JORDON LOUIE Report Released Date/Time: Jan 24, 2022 02:24 PM Reporting Lab: [place] [phone] Performing Lab: [place] [phone] [place] [address] ([facility]) COMPREHEN SIVE METABOLIC PANEL+MG GLUCOSE [MASS/VOLUM E] IN SERUM OR PLASMA 73 74 - 100 01/24 L Specimen Type: PLASMA No comment entered. Ordering Provider: JORDON LOUIE Report Released Date/Time: Jan 24, 2022 02:24 PM Reporting Lab: [facility] [address] Performing Lab: [address] ([facility]) COMPREHEN SIVE METABOLIC PANEL+MG SODIUM [MOLES/VOLU ME] IN SERUM OR PLASMA 138 136 - 145 01/24 Specimen Type: PLASMA No comment entered. Ordering Provider: JORDON LOUIE Report Released Date/Time: Jan 24, 2022 02:24 PM Reporting Lab: [facility] [address] Performing Lab: [facility] [address] [place] ([facility]) COMPREHEN SIVE METABOLIC PANEL+MG POTASSIUM [MOLES/VOLU ME] IN SERUM OR PLASMA 3.9 3.5 - 5.1 01/24 Specimen Type: PLASMA No comment entered. Ordering Provider: JORDON LOUIE Report Released Date/Time: Jan 24, 2022 02:24 PM Reporting Lab: [facility] [address] Performing Lab: [facility] [address] [place] ([facility]) COMPREHEN SIVE METABOLIC PANEL+MG CHLORIDE [MOLES/VOLU ME] IN SERUM OR PLASMA 105 98 - 107 01/24 Specimen Type: PLASMA No comment entered. Ordering Provider: JORDON LOUIE Report Released Date/Time: Jan 24, 2022 02:24 PM Reporting Lab: [facility] [address] Performing Lab: [facility] [address] [place] ([facility]) COMPREHEN SIVE METABOLIC PANEL+MG CARBON DIOXIDE, TOTAL [MOLES/VOLU ME] IN SERUM OR PLASMA - 01/24 Specimen Type: PLASMA No comment entered. Ordering Provider: JORDON LOUIE Report Released Date/Time: Jan 24, 2022 02:24 PM Reporting Lab: [facility] [address] Performing Lab: [facility] [address] [place] ([facility]) COMPREHEN SIVE METABOLIC PANEL+MG CALCIUM [MASS/VOLUM E] IN SERUM OR PLASMA 9.0 8.4 - 10.2 01/24 Specimen Type: PLASMA No comment entered. Ordering Provider: JORDON LOUIE Report Released Date/Time: Jan 24, 2022 02:24 PM Reporting Lab: [facility] [address] Performing Lab: [facility] [address] [place] ([facility]) COMPREHEN SIVE METABOLIC PANEL+MG PROTEIN [MASS/VOLUM E] IN SERUM OR PLASMA 6.3 6.0 - 8.3 01/24 Specimen Type: PLASMA No comment entered. Ordering Provider: JORDON LOUIE Report Released Date/Time: Jan 24, 2022 02:24 PM Reporting Lab: [facility] [address] Performing Lab: [place] [phone] [place] ([facility]) COMPREHEN SIVE METABOLIC PANEL+MG ALBUMIN [MASS/VOLUM E] IN SERUM OR PLASMA 3.9 3.5 - 5.2 01/24 Specimen Type: PLASMA No comment entered. Ordering Provider: JORDON LOUIE Report Released Date/Time: Jan 24, 2022 02:24 PM Reporting Lab: [facility] [address] Performing Lab: [facility] [address] [place] ([facility]) COMPREHEN SIVE METABOLIC PANEL+MG BILIRUBIN.T OTAL [MASS/VOLUM E] IN SERUM OR PLASMA 0.8 0.2 - 1.2 01/24 Specimen Type: PLASMA No comment entered. Ordering Provider: JORDON LOUIE Report Released Date/Time: Jan 24, 2022 02:24 PM Reporting Lab: [facility] [address] Performing Lab: [facility] [address] [place] ([facility]) COMPREHEN SIVE METABOLIC PANEL+MG MAGNESIUM [MASS/VOLUM E] IN SERUM OR PLASMA 2.1 1.6 - 2.6 01/24 Specimen Type: PLASMA No comment entered. Ordering Provider: JORDON LOUIE Report Released Date/Time: Jan 24, 2022 02:24 PM Reporting Lab: [facility] [address] Performing Lab: [facility] [address] [place] ([facility]) COMPREHEN SIVE METABOLIC PANEL+MG ANION GAP IN SERUM OR PLASMA 6 5 - 15 01/24 Specimen Type: PLASMA No comment entered. Ordering Provider: JORDON LOUIE Report Released Date/Time: Jan 24, 2022 02:24 PM Reporting Lab: [facility] [address] Performing Lab: [facility] [address] [place] ([facility]) COMPREHEN SIVE METABOLIC PANEL+MG ALKALINE PHOSPHATASE [ENZYMATIC ACTIVITY/VO LUME] IN SERUM OR PLASMA 50 40 - 150 01/24 Specimen Type: PLASMA No comment entered. Ordering Provider: JORDON LOUIE Report Released Date/Time: Jan 24, 2022 02:24 PM Reporting Lab: [facility] [address] Performing Lab: [facility] [address] [place] ([facility]) COMPREHEN SIVE METABOLIC PANEL+MG ALANINE AMINOTRANSF ERASE [ENZYMATIC ACTIVITY/VO LUME] IN SERUM OR PLASMA <5 <55 - 55 01/24 Specimen Type: PLASMA No comment entered. Ordering Provider: JORDON LOUIE Report Released Date/Time: Jan 24, 2022 02:24 PM Reporting Lab: [facility] [address] Performing Lab: [facility] [address] [place] ([facility]) COMPREHEN SIVE METABOLIC PANEL+MG ASPARTATE AMINOTRANSF ERASE [ENZYMATIC ACTIVITY/VO LUME] IN SERUM OR PLASMA 16 <34 - 34 01/24 Specimen Type: PLASMA No comment entered. Ordering Provider: JORDON LOUIE Report Released Date/Time: Jan 24, 2022 02:24 PM Reporting Lab: [facility] [address] Performing Lab: [facility] [address] [place] ([facility]) COMPREHEN SIVE METABOLIC PANEL+MG CREAT EGFR(CKD-EP I) 84 60 01/24 Specimen Type: PLASMA No comment entered. Ordering Provider: JORDON LOUIE Report Released Date/Time: Jan 24, 2022 02:24 PM Reporting Lab: [facility] [address] Performing Lab: [facility] [address] [place] [facility] Vital Signs Combined list of inpatient and outpatient Vital Signs from Department of Defense and Veterans Affairs, ranging from 12 months to all on record, depending upon the facility. Vital Sign Value Date Comments Source SYSTOLIC BLOOD PRESSURE 126 01/30/2023 11:13:54 [place] ([facility]) DIASTOLIC BLOOD PRESSURE 72 01/30/2023 11:13:54 [place] ([facility] PULSE OXIMETRY 95% 01/30/2023 11:13:54 [place] ([facility] WEIGHT 164.4 01/30/2023 11:13:54 [place] [facility] BMI 25kg/m2 01/30/2023 11:13:54 [place] [facility] PAIN 0 01/30/2023 11:13:54 [place] [facility] HEIGHT 01/30/2023 11:13:54 [place] [facility] TEMPERATURE 99 01/30/2023 11:13:54 [place] [facility] PULSE 58 01/30/2023 11:13:54 [place] [facility] RESPIRATION 20 01/30/2023 11:13:54 [place] ([facility] Encounters Combined list of: 1) Encounters from Department of [facility] facilities going back up to thelast 18 months. 2) Encounters from the Department of [place] facilities going back up to 280 months. Location Location Details Encounter Type Encounter Number Reason For Visit Attending Provider ADM Date DC Date Status Disposition Source [place] [facility] Outpatient Encounter [id number] 07/28 [facility] [place] [facility] Outpatient Encounter [id number] 09/08 [facility] [place] [facility] Outpatient Encounter [id number] 10/15 [facility] [place] [facility] Outpatient Encounter [id number] 10/24 [facility] [place] [facility] Outpatient Encounter [id number] Marlene TIMMONS 12/02 [facility] Outpatient Encounter [id number] [id number] 12/10 [facility] [place] [facility] Outpatient Encounter [id number] 12/10 [facility] [place] [facility] Outpatient Encounter [id number] 12/26 [facility] [place] [facility] Outpatient Encounter [id number] 12/30 [facility] [place] [facility] Outpatient Encounter [id number] KAYLIENELLA RubioMatt Willis 01/27 [facility] OFFICE O/P EST MOD 30-39 MIN [id number] Diagnos is: ICD-10- CM Z00.00 Encntr for general adult medical exam w/o abnorma l finding s
ANTIONETTE LOUIE 01/30 [facility] [place] [facility] Outpatient Encounter [id number] 02/20 [facility] [place] [facility] Outpatient Encounter [id number] 02/27 [facility] [place] [facility] Outpatient Encounter [id number] 04/15 [facility] [place] [facility] Outpatient Encounter [id number] 05/19 [facility] [place] [facility] Outpatient Encounter [id number] 07/02 [facility] [place] [facility] Outpatient Encounter [id number] 07/03 [facility] [place] [facility] Outpatient [facility]counter [id number] 07/07 [facility] [place] [facility] Outpatient Encounter [id number] FLACO DEJESUS 07/07 [facility] [place] [facility] Outpatient Encounter [id number] 07/08 [place] [facility] [place] [facility] Outpatient Encounter [id number] Diagnos is: ICD-10- CM R13.10 Dysphag ia, unspeci fied
RADHA RICHARD 07/09 [facility] [place] [facility] Outpatient Encounter [id number] Diagnos is: ICD-10- CM M62.81 Muscle weaknes s (genera lized)< br/> Matt MARION 07/09 [place] [facility] [place] [facility] CASE MANAGEMENT [id number] Diagnos is: ICD-10- CM Z71.89 Other specifi ed personnel counselor ing<br/ > FLACO DEJESUS 07/16 [place] [facility] [place] [facility] Outpatient Encounter [id number] 07/17 [place] [facility] [place] [facility] Outpatient Encounter [id number] 08/05 [place] [facility] [place] [facility] Outpatient Encounter [id number] Diagnos is: ICD-10- CM G20.A2 Leatha on's disease without dyskine lurdes, with fluctua tions<b r/> DENNYS TRAMMELL SA 08/06 [place] [facility] [place] [facility] RN CARE EA 15 MIN HH/HOSPICE [id number] Diagnos is: ICD-10- CM K21.9 Gastro- esophag eal reflux disease without esophag itis
YELITZA VELIZ 08/18 [place] [facility] [place] [facility] CASE [facility]NAGEMENT [id number] Diagnos is: ICD-10- CM Z71.89 Other specifi ed personnel counselor ing<br/ > FLACO DEJESUS 09/17 [place] [facility] [place] [facility] Outpatient Encounter [id number] 09/29 [place] [facility] [place] [facility] RN CARE EA 15 MIN HH/HOSPICE [id number] Diagnos is: ICD-10- CM B35.1 Tinea unguium
YELITZA VELIZ 10/13 [place] [facility] [place] [facility] Outpatient Encounter [id number] 10/14 [place] [facility] [place] [facility] Outpatient Encounter [id number] 11/06 [place] [facility] [place] [facility] CASE MANAGEMENT [id number] Diagnos is: ICD-10- CM Z71.89 Other specifi ed personnel counselor ing<br/ > FLACO DEJESUS 11/13 [facility] [place] [facility] Outpatient Encounter [id number] Veronique PAREDES 11/26 [place] [facility] [place] [facility] Outpatient Encounter [id number] 11/27 [place] [facility] [place] [facility] Outpatient Encounter [id number] Diagnos is: ICD-10- CM R13.10 Dysphag ia, unspeci fied
RADHA RICHARD 11/27 [facility] [place] [facility] Outpatient Encounter [id number] 11/27 [facility] [place] [facility] Outpatient Encounter [id number] 11/30 [place] [facility] [place] [facility] Outpatient Encounter [id number] THAIS THOMSON 11/30 [facility] [place] [facility] Outpatient Encounter [id number] 12/01 [facility] [place] [facility] Outpatient Encounter [id number] 12/02 [facility] [place] [facility] Outpatient Encounter [id number] 12/06 [place] [facility] [place] [facility] Outpatient Encounter [id number] 12/09 [facility] [place] [facility] RN CARE EA 15 MIN HH/HOSPICE [id number] Diagnos is: ICD-10- CM F41.9 Anxiety disorde r, unspeci fied
YELITZA VELIZ 12/14 [facility] [place] [facility] Outpatient Encounter [id number] [facility] [place] [facility] Outpatient Encounter [id number] Diagnos is: ICD-10- CM R13.10 Dysphag ia, unspeci fied
MARYAN ALEXANDER ISTINA 12/20 [facility] [place] [facility] Outpatient Encounter [id number] 01/03 [facility] [place] [facility] Outpatient Encounter [id number] 01/04 [facility] Social History Combined list of available smoking, tobacco, and other social history from Department of Defense and Veterans Affairs facilities. Social History Type Response Date Comment [facility] e Tobacco smoking status NHIS FL-TOBACCO NEVER USED 01/30/2023 [place] [facility] History of tobacco use FL-TOBACCO NEVER USED 01/24/2022 [place] [facility] History of tobacco use FL-TOBACCO NEVER USED 01/21/2021 [place] [facility] History of tobacco use FL-TOBACCO NEVER USED 01/09/2020 [place] [facility] History of tobacco use FL-TOBACCO NEVER USED 12/13/2018 [place] [facility] History of tobacco use LIFETIME NON-TOBACCO USER 8 [place] [facility] History of tobacco use LIFETIME NON-TOBACCO USER 7 [place] [facility] History of tobacco use LIFETIME NON-TOBACCO USER 6 [place] [facility] History of tobacco use LIFETIME NON-TOBACCO USER 4 [place] [facility] History of tobacco use LIFETIME NON-TOBACCO USER 7 [place] [facility] History of tobacco use NON-TOBACCO USER 01/22/2001 [facility] History of tobacco use NON-TOBACCO USER 03/05/2000 [facility] Plan of Care List of future care activities from Department of Veterans Affairs facilities. Additional future care activities may be listed in the Assessment and Plan section. Date/Time Care Activity Care Activity Detail Facili ty 02/02/2024 AMBULATORY - MEDICINE AM[facility]ULATORY [facility] 01/05/2024 Consult Order DERMATOLOGY OUTP T Cons Wine Consultant's Choice [facility] 01/21/2024 Imaging - General Ra diology Order ESOPHAGRAM VIDEO SWALLOW [facility] Advance Directives List of completed, amended, or rescinded Advance Directives on record at Department of [facility] Affairs facilities. An actual copy of the Directive is not included. Date Advance Directive Provider Source 01/25/2004 ADVANCE DIRECTIVE ONEIL KEITH ([facility])
--- OUTSIDE RECORDS SUMMARY | 2024-01-19 13:54 | XMS_ITS | Encounter Summary ---
Author Name Department of Vetera Affairs Organization Department of Vetera ns Affairs Address [address] [place] [address] Support Name Relationship Address Phone BRANDON Next [...] MEDIC ARE SUPPL EMENT Oct 05, 2016 [id number] [phone] RONALDO,Hellen ETER PATIENT [place] MEDICARE SUPPLEMEN JUSTINA MEDIC ARE SUPPL EMENT Oct 05, 2016 [id number] [phone] RONALDO,Hellen ETER PATIENT [place] MEDICARE SUPPLEMEN JUSTINA MEDIC ARE SUPPL EMENT Oct 05, 2016 [id number] [phone] RONALDO,Hellen ETER PATIENT MEDICARE (WNR) MEDICARE (M) PART A Nov 05, 2001 PART A [id number] [phone] RONALDO,P ETER PATIENT MEDICARE (WNR) MEDICARE (M) PART B Nov 05, 2001 PART B [id number] [phone] Hellen HIGGINS ETER PATIENT MEDICARE (WNR) MEDICARE (M) PART A Nov 05, 2001 PART A [id number] [phone] Hellen HIGGINS ETER PATIENT MEDICARE (WNR) MEDICARE (M) PART B Nov 05, 2001 PART B [id number] [phone] Hellen HIGGINS ETER PATIENT Selected Encounter This section includes the information on record at [place] for the Encounter. Date/Time Encounter Type Encounter Description Reason Provider Source Nov 26, 2023 01:29 PM Outpatient Encounter ADMIN PAT ACTIVTIES (MASNONCT) SHERON PAREDES IHMatt Encounter Template Text not used by [place] Plan of Treatment: Future Appointments (+ 6 months) and Future Tests (+/- 45 days) The Plan of Treatment section includes future care activities for the patient from all [place] [facility] This section includes future appointments and future orders which are active, pending or scheduled. Future Appointments This section includes appointments that were scheduled to occur 6 months from the date of the Encounter, up to a maximum of 20 appointments. The data comes from all [facility]. Appointment Date/Time Appointment Type Appointme nt Facility Name Dec 15, 2023 08:00 [facility] Dec 24[facility]23 05:00 PM AMBULATORY - REHAB MEDICIN E [facility] Feb 02, 2024 11:00 AM AMBULATORY - [...] of theEncounter. The data comes from all [facility]. Test Date/Time Test Type Test Details Facility Name Nov 27, 2023 02:51 PM Consult Order COMMUNITY CARE-WOUND CARE PC Cons Logging Equipment Mechanic's Choice [facility] Jan 05, 2024 08:12 AM Consult Order DERMATOLOG Y OUTPT Cons Logging Equipment Mechanic's [facility] Advance Directives: All historical and current Section Date Range: From patient's date of to the date document was created. This section includes ALL of a patient's completed or amended [place] Advance and Rescinded Directives. The entries below indicate that a directive exists for the patient, but an actual copy is not included with this document. The data comes from all [place] facilities. Date Advance Directives Provider Source Jan 25, 2004 ADVANCE DIRECTIVE ONEIL KEITH ([facility] Encounter Notes: All associated encounter notes This section contains the clinical notes associated to the Encounter. Date/Time Encounter Note(s) Provider Source Dec 01, 2023 07:20 AM ADDENDUM: LOCAL TITLE: Addendum STANDARD TITLE: ADDENDUM DATE OF NOTE: DEC 01, 2023@07:20:49 ENTRY DATE: DEC 01, 2023@07:20:50 AUTHOR: PRIYANK MALDONADO EXP COSIGNER: URGENCY: STATUS: COMPLETED [place] was seen in a Community ED. Records uploaded to chart. Please review and follow up as appropriate. /preethi/ PRIYANK MALDONADO ...Advanced Batch And Furnace Operator Signed: 12/01/2023 07:20 Receipt Acknowledged By: 12/01/2023 20:47 /es/ JAVIER LOUIE MD PHYSICIAN 12/01/2023 12:52 /preethi/ Raheel Luke RN [facility] --- Original Document --- 11/26/23 [facility] SELF PRESENTING CARE COORD PLAN NOTE: Emergency Notification Intake Date Presenting to the Facility: Nov Method of Contact: Notified from [facility] worklist Notification ID: [id number] [facility] Referral #: On License Of [facility] Hospital Name: Hospital: [facility] Address: City: [place] State: [place] Zip Code: Phone : On License Of [facility] Facility Point of Contact: Name: HUMZA ROGER Chief complaint: [id number] - Cutaneous abscess of buttock Primary Diagnosis: Disposition Unknown at time of intake note entry /preethi/ ESPINOZA BROOKS HEALTH CHECKER/STOCKER Signed: 11/26/2023 13:32 Receipt Acknowledged By: 11/30/2023 09:07 /preethi/ Sheron Paredes BUFFET MANAGER camera maker Dietary Director 11/30/2023 ADDENDUM STATUS: COMPLETED Records requested and will be uploaded via Epsi when received. /preethi/ PRIYANK MALDONADO .HaroldoAdvanced Batch And Furnace Operator Signed: 11/30/2023 13:29 11/26/2023 ADDENDUM STATUS: COMPLETED [facility] Scanned Document - Addendum. ED records 11/26/23 [facility] SCANNED DOCUMENT SIGNATURE NOT REQUIRED Electronically Filed: 12/01/2023 by: PRIYANK MALDONADO .HaroldoAdvanced Batch And Furnace Operator 12/01/2023 ADDENDUM STATUS: COMPLETED discharged back to snf facility. Please see Nov 30 [facility] note for more information. -Drug Abuse Worker will await any furhter follow up care needed if requested from SNF /preethi/ Raheel Luke RN [facility] Signed: 12/01/2023 12:51 PRIYANK MALDONADO [facility] Nov 26, 2023 01:30 PM NONVA NOTE: LOCAL TITLE: COMMUNITY CARE-[facility] SELF PRESENTING CARE COORD PLAN STANDARD TITLE: NONVA NOTE DATE OF NOTE: NOV 26, 2023@13:30 ENTRY DATE: NOV 26, 2023@13:30:42 AUTHOR: ESPINOZA BROOKS EXP COSIGNER: URGENCY: STATUS: COMPLETED [facility] SELF PRESENTING CARE COORD PLAN NOTE Has ADDENDA Emergency Notification Intake Date Presenting to the Facility: Nov Method of Contact: Notified from [employer] worklist Notification ID: [id number] [facility] Referral #: [facility] Name: Hospital: [facility] Address: City: [place] State: [place] Zip Code: Phone : Community Facility Point of Contact: Name: HUMZA ROGER Chief complaint: L0231 - Cutaneous abscess of buttock Primary Diagnosis: Disposition Unknown at time of intake note entry /darlyn BROOKS HEALTH CHECKER/STOCKER Signed: 11/26/2023 13:32 Receipt Acknowledged By: 11/30/2023 09:07 /preethi/ Sheron Paredes BUFFET MANAGER camera maker Dietary Director 11/30/2023 ADDENDUM STATUS: COMPLETED Records requested and will be uploaded via Epsi when received. /preethi/ PRIYANK MALDONADO .HaroldoAdvanced Batch And Furnace Operator Signed: 11/30/2023 13:29 11/26/2023 ADDENDUM STATUS: COMPLETED Vist[facility] Imaging Scanned Document - Addendum. ED records 11/26/23 [facility] SCANNED DOCUMENT SIGNATURE NOT REQUIRED Electronically Filed: 12/01/2023 by: PRIYANK MALDONADO ..MikeAdvanced Batch And Furnace Operator 12/01/2023 ADDENDUM STATUS: COMPLETED [place] was seen in a Community ED. Records uploaded to chart. Please review and follow up as appropriate. /preethi/ PRIYANK MALDONADO .HaroldoAdvanced Batch And Furnace Operator Signed: 12/01/2023 07:20 Receipt Acknowledged By: * AWAITING SIGNATURE * JAVIER LOUIE 12/01/2023 12:52 /preethi/ Raheel Luke RN [facility] 12/01/2023 ADDENDUM STATUS: COMPLETED discharged back to snf facility. Please see Nov 30 [facility] note for more information. -Drug Abuse Worker will await any furhter follow up care needed if requested from SNF /preethi/ Raheel Luke RN [facility] Signed: 12/01/2023 12:51 ESPINOZA BROOKS [facility]
--- OUTSIDE RECORDS SUMMARY | 2024-01-19 13:54 | XMS_ITS | Encounter Summary ---
Author Name Department of Vetera ns Affairs Organization Department of Vetera ns Affairs Address [address] [place] [address] Support Name Relationship Address Phone BRANDON Next [...] MEDIC ARE SUPPL EMENT Oct 05, 2016 [id number] RONALDO,P ETER PATIENT [place] MED[place] SUPPLEMEN JUST[place] MEDIC ARE SUPPL EMENT Oct 05, 2016 [id number] RONALDO,P ETER PATIENT [place] MEDIC[place] SUPPLEMEN [place] MEDIC ARE SUPPL EMENT Oct 05, 2016 [id number] RONALDO,P ETER PATIENT MEDICARE (WNR) MEDICARE (M) PART A Nov 05, 2001 PART A [id number] [phone] RONALDO,P ETER PATIENT MEDICARE (WNR) MEDICARE (M) PART B Nov 05, 2001 PART B [id number] [phone] RONALDO,P ETER PATIENT MEDICARE (WNR) MEDICARE (M) PART A Nov 05, 2001 PART A [id number] [phone] RONALDOHellen [place] PATIENT MEDICARE (WNR) MEDICARE (M) PART B Nov 05, 2001 PART B [id number] Hellen HIGGINS PATIENT Selected Encounter This section includes the information on record at [place] for the Encounter. Date/Time Encounter Type Encounter Description Reason Provider Source Nov 27, 2023 12:22 PM Outpatient Encounter SPEECH-LANGUAGE PATHOLOGY ICD-10-CM R13.10 Dysphagia, unspecified LU RICHARD [facility] Encounter Template Text not used by [place] Assessments - Encounter Diagnoses This section includes the primary and secondary diagnoses documented for the Encounter. Date/Time Primary/Secondary Diagnosis Diagnosis Name Provider Source Nov 27, 2023 12:22 PM PRIMARY Dysphagia, unspecified RYDER RICHARD [facility] Plan of Treatment: Future Appointments (+ 6 months) and Future Tests (+/- 45 days) The Plan of Treatment section includes future care activities for the patient from all [place] treatmentfacilities. This section includes future appointments and future orders which are active, pending or scheduled. Future Appointments This section includes appointments that were scheduled to occur 6 months from the date of the Encounter, up to a maximum of 20 appointments. The data comes from all [place] treatment [facility]. Appointment Date/Time Appointment Type Appointme nt Facility Name Dec 15, 2023 08:00 AM [facility] [place] [facility] [place] [facility] Dec 24, 2023 05:00 PM AMBULATORY - REHAB [facility] Feb 02, 2024 11:00 AM AMBULATORY [...] of theEncounter. The data comes from all [place] treatment [facility]. Test Date/Time Test Type Test Details Facility Name Nov 27, 2023 02:51 PM Consult Order COMMUNITY CARE-WOUND CARE PC Cons Simulation Specialist's [facility] Jan 05, 2024 08:12 AM Consult Order DERMATOLOG Y OUTPT Cons Simulation Specialists [facility] Advance Directives: All historical and current Section Date Range: From patient's date of to the date document was created. This section includes ALL of a patient's completed or amended [place] Advance and Rescinded Directives. The entries below indicate that a directive exists for the patient, but an actual copy is not included with this document. The data comes from all [place] facilities. Date Advance Directives Provider Source Jan 25, 2004 ADVANCE DIRECTIVE ONEIL KEITH ([facility])
--- OUTSIDE RECORDS SUMMARY | 2024-01-19 13:54 | XMS_ITS ---
Author Name Department of Vetera ns Affairs Organization Department of Vetera ns Affairs Address [address] [place] [address] Support Name Relationship Address Phone BRANDON Next [...] MEDIC ARE SUPPL EMENT Oct 05, 2016 [id number] [phone] RONALDO,P ETER PATIENT [place] SUPP[place]MEN [place] MEDIC ARE SUPPL EMENT Oct 05, 2016 [id number] RONALDO,P ETER PATIENT [place]PP[place]MEN [place] MEDIC ARE SUPPL EMENT Oct 05, 2016 [id number] RONALDO,P ETER PATIENT MEDICARE (WNR) MEDICARE (M) PART A Nov 05, 2001 PART A [id number] RONALDO,P ETER PATIENT MEDICARE (WNR) MEDICARE (M) PART B Nov 05, 2001 PART B [id number] [phone] RONALDO,P ETER PATIENT MEDICARE (WNR) MEDICARE (M) PART A Nov 05, 2001 PART A [id number] [phone] HEHellen FERNANDO NACHOBRANDT PATIENT MEDICARE (WNR) MEDICARE (M) PART B Nov 05, 2001 PART B [id number] RONALDOHellen ETBRANDT PATIENT Selected Encounter This section includes the information on record at [place] for the Encounter. Date/Time Encounter Type Encounter Description Reason Pro vider Source Nov 27, 2023 02:14 PM Outpatient Encounter [facility] FOLLOW-UP IHE Encounter Template Text not used by [place] Plan of Treatment: Future Appointments (+ 6 months) and Future Tests (+/- 45 days) The Plan of Treatment section includes future care activities for the patient from all [place] treatmentfacilities. This section includes future appointments and future orders which are active, pending or scheduled. Future Appointments This section includes appointments that were scheduled to occur 6 months from the date of the Encounter, up to a maximum of 20 appointments. The data comes from all [facility]. Appointment Date/Time Appointment Type Appointme nt Facility Name Dec 15, 2023 08:00 [facility] Dec [facility], [facility]23 05:00 PM [facility]ULAT[facility] - REHAB MEDICIN E [facility] Feb 02, 2024 11:00 AM AMBULATORY - MEDICINE [facility] ([facility]) Active, Pending, and Scheduled Orders This section includes a listing of several types of active, pending, and scheduled orders, including clinic medications orders, diagnostic test orders, procedure orders and consult orders; where the start date of the order is 45 days before the date of the Encounter or 45 days after the date of theEncounter. The data comes from all [facility]. Test Date/Time Test Type Test Details Facility Name Nov 27, 2023 02:51 PM Consult Order COMMUNITY CARE-WOUND CARE PC Cons Community Service Director's Choice [facility] Jan 05, 2024 08:12 AM Consult Order DERMATOLOG Y OUTPT Cons Community Service Director's [facility] Advance Directives: All historical and current Section Date Range: From patient's date of to the date document was created. This section includes ALL of a patient's completed or amended [place] Advance and Rescinded Directives. The entries below indicate that a directive exists for the patient, but an actual copy is not included with this document. The data comes from all [facility]. Date Advance Directives Provider Source Jan 25, 2004 ADVANCE DIRECTIVE ONEIL KEITH ([facility]) Encounter Notes: All associated encounter notes This section contains the clinical notes associated to the Encounter. Date/Time Encounter Note(s) Provider Source Nov 27, 2023 02:14 PM COMMUNITY LONG-TERM CARE NOTE: LOCAL TITLE: [facility] CARE COORDINATION NOTE STANDARD TITLE: COMMUNITY LONG-TERM CARE NOTE DATE OF NOTE: NOV 27, 2023@14:14 ENTRY DATE: NOV 27, 2023@14:14:52 AUTHOR: ETTA SHIELDS EXP COSIGNER: URGENCY: STATUS: COMPLETED Community [facility] Care Coordination WHERE IS SEEKING CARE Care in the community Non-VA Provider Requested: [facility] Location: [address] [place], [place] REFERRING PROVIDER INFORMATION Senior Living: [facility] [place] Referring Provider: [facility]- Dr Corry Mcdaniel LONG-TERM POINT OF CONTACT FOR APPOINTMENT COORDINATION Name: Maria Isabel Tarango RN Email: TYPE OF REFERRAL Specialty Care: Wound clinic REASON FOR REFERRAL See H& P 11/26/2023 ED visit. Orders to f/u with wound clinic. is asking for appt at [facility] and she will transport. This is for a L gluteal area wound. Gets daily dsgs as ordered and to f/u with wound clinic. PLAN Provider to review for consult placement. /preethi/ ETTA SHIELDS PRODUCTION GENERALIST HEALTH NURSE COORDINATOR Signed: 11/27/2023 14:20 Receipt Acknowledged By: 12/01/2023 09:54 /es/ Oly Bingham child care leader Health Nurse Coordinator 11/27/2023 14:49 /preethi/ LYNNE JOHNSON MD HOME-BASED PRIMARY CARE ETTA SHIELDS [facility]
--- OUTSIDE RECORDS SUMMARY | 2024-01-19 13:54 | XMS_ITS | Encounter Summary ---
Author Name Department of Vetera ns Affairs Organization Department of Vetera ns Affairs Address [address] [place] [address] Support Name Relationship Address Phone BRANDON Next [...] MEDIC ARE SUPPL EMENT Oct 05, 2016 [id number] RONALDO,P ETER PATIENT [place] MED[place] SUPPLEMEN JUSTINA MEDIC ARE SUPPL EMENT Oct 05, 2016 [id number] RONALDO,P ETER PATIENT [employer] MEDICARE SUPPLEMEN JUSTINA MEDIC ARE SUPPL EMENT Oct 05, 2016 [id number] RONALDO,P ETER PATIENT MEDICARE (WNR) MEDICARE (M) PART A Nov 05, 2001 PART A [id number] RONALDO,P ETER PATIENT MEDICARE (WNR) MEDICARE (M) PART B Nov 05, 2001 PART B [id number] RONALDO,P ETER PATIENT MEDICARE (WNR) MEDICARE (M) PART A Nov 05, 2001 PART A [id number] RONALDOHellen [place] PATIENT MEDICARE (WNR) MEDICARE (M) PART B Nov 05, 2001 PART B [id number] [phone] Hellen BENTON PATIENT Selected Encounter This section includes the information on record at [place] for the Encounter. Date/Time Encounter Type Encounter Description Reason Pro vider Source Nov 27, 2023 09:44 AM Outpatient Encounter SPEECH-LANGUAGE PATHOLOGY IHE Encounter Template Text not used by [place] Plan of Treatment: Future Appointments (+ 6 months) and Future Tests (+/- 45 days) The Plan of Treatment section includes future care activities for the patient [facility] [place] [facility] This section includes future appointments and future orders which are active, pending or scheduled. Future Appointments This section includes appointments that were scheduled to occur 6 months from the date of the Encounter, up to a maximum of 20 appointments. The data comes from all [facility]. Appointment Date/Time Appointment Type Appointme nt Facility Name Dec 15, 2023 08:00 AM AMBULATORY - NONE [facility] Dec 24, 2023 05:00 PM AMBULATORY - REHAB [facility]ICIN E [facility] Feb 02, 2024 11:00 AM AMBULATORY - MEDICINE [facility] ([facility]) Active, Pending, and Scheduled Orders This section includes a listing of several types of active, pending, and scheduled orders, including clinic medications orders, diagnostic test orders, procedure orders and consult orders; where the start date of the order is 45 days before the date of the Encounter or 45 days after the date of theEncounter. The data comes from all [facility]. Test Date/Time Test Type Test Details Facility Name Nov 27, 2023 02:51 PM Consult Order COMMUNITY CARE-WOUND CARE PC Cons Spinner Hydraulic's Choice [facility] Jan 05, 2024 08:12 AM Consult Order DERMATOLOG Y OUTPT Cons Spinner Hydraulic's [facility] Advance Directives: All historical and current Section Date Range: From patient's date of to the date document was created. This section includes ALL of a patient's completed or amended VA Advance and Rescinded Directives. The entries below indicate that a directive exists for the patient, but an actual copy is not included with this document. The data comes from all [facility]. Date Advance Directives Provider Source Jan 25, 2004 ADVANCE DIRECTIVE ONEIL KEITH ([facility]) Encounter Notes: All associated encounter notes This section contains the clinical notes associated to the Encounter. Date/Time Encounter Note(s) Provider Source Nov 27, 2023 09:44 AM [facility] CARE CONSULT: LOCAL TITLE: [facility] THERAPY AUTHORZATION CONSULT STANDARD TITLE: COMMUNITY SNF CARE CONSULT DATE OF NOTE: NOV 27, 2023@09:44 ENTRY DATE: NOV 27, 2023@09:44:56 AUTHOR: RADHA RICHARD EXP COSIGNER: URGENCY: STATUS: COMPLETED [facility] THERAPY AUTHORZATION CONSULT Has ADD[facility] Authorization Treatment requested from [facility]: Speech Pathology Diagnosis for treatment: Dysphagia Previous authorizations: 07/09/23: 4 dysphagia treatment sessions [place] Therapy authorization: Speech Pathology Duration: 4 weeks Total Number of sessions: 6 Criteria: Low (up to 149 minutes per week) Dates approved: 11/25/23- 12/23/23 Summary: Medical Record and VAMP CUT OUT WORKER documentation were reviewed. Mr. Benton is an 87 year old residing in [facility] with medical history significant for PD. Kincaid recently had choking episode during meal. He is currently on soft solid and thin liquid diet. VAMP CUT OUT WORKER to determine least restrictive diet and train compensatory strategies. E-consult and chart review total time: 15 min. ADDITIONAL INFORMATION: [facility] Physical/Occupational (PT/OT) and/or Speech Therapy authorization request was reviewed using the medical documentation, therapy evaluation(s) and therapy treatment plan(s) provided by the shelter. Supportive VA documentation was also reviewed if available. The Kincaid was not clinically examined by this provider as part of the review. [facility] therapy authorization reviews are conducted for the purposes of evaluating the appropriateness for therapy consistent with VA practices and approval for [place] payment for shelter therapy. Appropriate clinical care and medical clearance for therapy authorization requests are the responsibility of the [facility] provider. A current order for all therapies requested is required from the licensed independent practitioner directly overseeing this 's care at the [facility]. /preethi/ RADHA RICHARD M.S.,[facility]-VAMP CUT OUT WORKER SPEECH PATHOLOGIST Signed: 11/27/2023 12:21 Receipt Acknowledged By: 11/27/2023 14:31 /preethi/ JAINNE MARION DO PHYSICIAN, PM&R 11/27/2023 12:29 /es/ Dung Vaughn [facility] Director Business Integration for WHIT GIBSON 11/30/2023 07:34 /es/ TIARA NEWBY 11/27/2023 ADDENDUM STATUS: COMPLETED Agree with VAMP CUT OUT WORKER authorization as noted above. /es/ JANINE MARION DO PHYSICIAN, PM&R Signed: 11/27/2023 14:31 RADHA RICHARD [facility]
--- OUTSIDE RECORDS SUMMARY | 2024-01-19 13:55 | XMS_ITS | Encounter Summary ---
Author Name Department of Vetera Affairs Organization Department of Vetera ns Affairs Address [address] [place] [address] Support Name Relationship Address Phone BRANDON Next [...] MEDIC ARE SUPPL EMENT Oct 05, 2016 [id number] [phone] RONALDO,Hellen ETER PATIENT [place] MEDIC ARE SUPPL EMENT Oct 05, 2016 [id number] [phone] RONALDO,P ETER PATIENT [place] MEDICARE SUPPLEMEN JUSTINA MEDIC ARE SUPPL EMENT Oct 05, 2016 [id number] 1A [phone] Hellen HIGGINS ETER PATIENT MEDICARE (WNR) MEDICARE (M) PART B Nov 05, 2001 PART B [id number] [phone] Hellen HIGGINS ETER PATIENT MEDICARE (WNR) MEDICARE (M) PART A Nov 05, 2001 PART A [id number] Hellen HIGGINS ETER PATIENT MEDICARE (WNR) MEDICARE (M) PART A Nov 05, 2001 PART A [id number] Hellen HIGGINS PATIENT MEDICARE (WNR) MEDICARE (M) PART B Nov 05, 2001 PART B [id number] ROGELIOMAUCARLOSHellen [place] PATIENT Selected Encounter This section includes the information on record at [place] for the Encounter. Date/Time Encounter Type Encounter Description Reason Pro vider Source Dec 01, 2023 03:35 PM Outpatient Encounter COMMUNITY CARE CONSULT IHE Encounter Template Text not used by [place] Plan of Treatment: Future Appointments (+ 6 months) and Future Tests (+/- 45 days) The Plan of Treatment section includes future care activities for the patient from all [place] treatmentfacilities. This section includes future appointments and future orders which are active, pending or scheduled. Future Appointments This section includes appointments that were scheduled to occur 6 months from the date of the Encounter, up to a maximum of 20 appointments. The data comes from all [facility]. Appointment Date/Time Appointment Type Appointme nt Facility Name Dec 15, 2023 08:00 AM [facility] Dec 24, 2023 05:00 PM AMBULATORY - REHAB MED[facility] E [facility] Feb 02, 2024 11:00 AM AMBULATORY - MEDICINE [facility] ([facility]) Active, Pending, and Scheduled Orders This section includes a listing of several types of active, pending, and scheduled orders, including clinic medications orders, diagnostic test orders, procedure orders and consult orders; where the start date of the order is 45 days before the date of the Encounter or 45 days after the date of theEncounter. The data comes from all [facility]. Test Date/Time Test Type Test Details Facility Name Nov 27, 2023 02:51 PM Consult Order COMMUNITY CARE-WOUND CARE PC Cons Drawing Supervisor's Choice [facility] Jan 05, 2024 08:12 AM Consult Order DERMATOLOG Y OUTPT Cons Drawing Supervisor's [facility] Advance Directives: All historical and current Section Date Range: From patient's date of to the date document was created. This section includes ALL of a patient's completed or amended [place] Advance and Rescinded Directives. The entries below indicate that a directive exists for the patient, but an actual copy is not included with this document. The data comes from all [facility]. Date Advance Directives Provider Source Jan 25, 2004 ADVANCE DIRECTIVE ONEIL KEITH ([facility]) Encounter Notes: All associated encounter notes This section contains the clinical notes associated to the Encounter. Date/Time Encounter Note(s) Provider Source Dec 01, 2023 03:36 PM NONVA NOTE: LOCAL TITLE: COMMUNITY CARE PRE-AUTH LETTER (AUTOPRINT) STANDARD TITLE: NONVA NOTE DATE OF NOTE: DEC 01, 2023@15:36 ENTRY DATE: DEC 01, 2023@15:36:08 AUTHOR: TRENT DERAS COSIGNER: URGENCY: STATUS: COMPLETED Nov EDI HIGGINS [address] [place] [phone] Dear EDI HIGGINS, Your VA provider has referred you to a provider within the community for care. Your medical care for WOUND CARE has been authorized with the community care provider listed below. DO NOT REPORT TO THE [facility] Provider info: Care has been approved for the following vendor: Office name, address, and phone number: [address], [address] Please contact the identified provider to schedule your community appointment. If you need assistance with this appointment, please call your facility community care office [facility] Office of Community Care at [phone] during the hours of 8:30AM - 3:00PM. Please follow up with your local [facility] community care office once this is scheduled. This step is needed to ensure your referral duration is maximized and the [place] has accurate referral information for billing purposes. Authorization Number: [id number] Referral Issue Date: Nov Expiration Date: May (subject to change based on first appointment) If you are unable to schedule this appointment or the appointment is no longer needed, please contact the community provider above for notification/rescheduling and then call the [facility] Office of Community Care at [phone] during the hours of 8:30AM - 3:00PM. If you need additional care/services not mentioned above or your authorization has and additional care is needed, please contact your primary care provider for a new referral. To review all care/service(s) approved under your referral, please go to the following link: [email or web address]) Co-Payments: If you are required to pay a VA co-payment, you will be billed by the VA for each authorized visit that you attend. However, you are NOT REQUIRED to make co-payments to a community provider. Thank you for the opportunity to serve you. Sincerely, [place] Community Care ([facility]) /preethi/ TRENT DERAS Advanced MSA Signed: 12/01/2023 15:39 TRENT DERAS [facility]
--- OUTSIDE RECORDS SUMMARY | 2024-01-19 13:55 | XMS_ITS | Encounter Summary ---
Author Name Department of Vetera Affairs Organization Department of Vetera ns Affairs Address [address] [place] [address] Support Name Relationship Address Phone BRANDON Next [...] MEDIC ARE SUPPL EMENT Oct 05, 2016 [id number] Hellen HIGGINS ETER PATIENT [place] SU[place]MEN JUST[place] MEDIC ARE SUPPL EMENT Oct 05, 2016 [id number] RONALDO,P ETER PATIENT [place] MED[place] SUPPLEMEN JUSTINA MEDIC ARE SUPPL EMENT Oct 05, 2016 [id number] [phone] Hellen HIGGINS ETER PATIENT MEDICARE (WNR) MEDICARE (M) PART A Nov 05, 2001 PART A [id number] Hellen HIGGINS ETER PATIENT MEDICARE (WNR) MEDICARE (M) PART B Nov 05, 2001 PART B [id number] Hellen HIGGINS ETER PATIENT MEDICARE (WNR) MEDICARE (M) PART A Nov 05, 2001 PART A [id number] Hellen HIGGINS PATIENT MEDICARE (WNR) MEDICARE (M) PART B Nov 05, 2001 PART B [id number] [phone] ROGELIOHellen FERNANDO NACHOBRANDT PATIENT Selected Encounter This section includes the information on record at [place] for the Encounter. Date/Time Encounter Type Encounter Description Reason Provider Source Nov 30, 2023 12:16 PM Outpatient Encounter COMMUNITY CARE CONSULT ORLANDO PELAYO IHMatt Encounter Template Text not used by [place] Plan of Treatment: Future Appointments (+ 6 months) and Future Tests (+/- 45 days) The Plan of Treatment section includes future care activities for the patient from all [place] treatmentfacilities. This section includes future appointments and future orders which are active, pending or scheduled. Future Appointments This section includes appointments that were scheduled to occur 6 months from the date of the Encounter, up to a maximum of 20 appointments. The data comes from all [facility]. Appointment Date/Time Appointment Type Appointme nt Facility Name Dec 15, 2023 08:00 AM [facility] Dec 24, 2023 05:00 PM AMBULATORY - REHAB MEDICIN E [facility] Feb 02, 2024 11:00 AM AMBULATORY - MEDICINE [facility] ([facility]) Active, Pending, and Scheduled Orders This section includes a listing of several types of active, pending, and scheduled orders, including clinic medications orders, diagnostic test orders, procedure orders and consult orders; where the start date of the order is 45 days before the date of the Encounter or 45 days after the date of theEncounter. The data comes from all [facility]. Test Date/Time Test Type Test Details Facility Name Nov 27, 2023 02:51 PM Consult Order COMMUNITY CARE-WOUND CARE PC Cons Curing Machine Operator's Choice [facility] Jan 05, 2024 08:12 AM Consult Order DERMATOLOG Y OUTPT Cons Curing Machine Operator's [facility] Advance Directives: All historical and current Section Date Range: From patient's date of to the date document was created. This section includes ALL of a patient's completed or amended [place] Advance and Rescinded Directives. The entries below indicate that a directive exists for the patient, but an actual copy is not included with this document. The data comes from all [facility]. Date Advance Directives Provider Source Jan 25, 2004 ADVANCE DIRECTIVE ONEIL KEITH ([facility]) Encounter Notes: All associated encounter notes This section contains the clinical notes associated to the Encounter. Date/Time Encounter Note(s) Provider Source Nov 30, 2023 12:16 PM NONVA NOTE: LOCAL TITLE: COMMUNITY CARE-CARE COORDINATION PLAN NOTE STANDARD TITLE: NONVA NOTE DATE OF NOTE: NOV 30, 2023@12:16 ENTRY DATE: NOV 30, 2023@12:16:23 AUTHOR: ORLANDO PELAYO EXP COSIGNER: URGENCY: STATUS: COMPLETED Community Care Consult: Wound care Consult No: [id number] HS Referral #: N/A Chief Complaint: wound care follow up from ED visit 11-26-23, currently resides at [facility], see consult for details. Patient Admitted? No Level of Care Coordination Complex/Chronic Care Coordination was determined from: Chart Review Facility Community Care Office Contact Care Coordination Point of Contact: Orlando Pelayo RN Services: Moderate Care Coordination Services Case Management, if appropriate Direct communications with interdisciplinary team Plan: assessed as needing complex care coordination which may include case management if appropriate, direct communication with interdisciplinary team and/or , chronic disease management if appropriate. If appropriate direct communications with interdisciplinary team Plan: Proceed with scheduling. /preethi/ ORLANDO CAIN RN-BC PHN REGISTERED NURSE Signed: 11/30/2023 12:19 ORLANDO PELAYO [facility]
--- OUTSIDE RECORDS SUMMARY | 2024-01-19 13:55 | XMS_ITS | Encounter Summary ---
Author Name Department of Vetera Affairs Organization Department of Vetera ns Affairs Address [address] [place] [address] Support Name Relationship Address Phone BRANDON Next [...] MEDIC ARE SUPPL EMENT Oct 05, 2016 [id number] Hellen HIGGINS ETER PATIENT [place] SU[place]MEN JUST[place] MEDIC ARE SUPPL EMENT Oct 05, 2016 [id number] 1A [phone] Hellen HIGGINS ETER PATIENT [place] MED[place] SUPPLEMEN JUSTINA MEDIC ARE SUPPL EMENT Oct 05, 2016 [id number] 1A [phone] Hellen HIGGINS ETER PATIENT MEDICARE (WNR) MEDICARE (M) PART A Nov 05, 2001 PART A [id number] [phone] Hellen HIGGINS ETER PATIENT MEDICARE (WNR) MEDICARE (M) PART B Nov 05, 2001 PART B [id number] [phone] Hellen HIGGINS ETER PATIENT MEDICARE (WNR) MEDICARE (M) PART A Nov 05, 2001 PART A [id number] Hellen HIGGINS PATIENT MEDICARE (WNR) MEDICARE (M) PART B Nov 05, 2001 PART B [id number] [phone] ROGELIOHellen FERNANDO NACHOBRANDT PATIENT Selected Encounter This section includes the information on record at [place] for the Encounter. Date/Time Encounter Type Encounter Description Reason Pro vider Source Dec 10, 2023 08:02 AM Outpatient Encounter TELEPHONE/SURGERY IHE Encounter Template Text not used by [place] Plan of Treatment: Future Appointments (+ 6 months) and Future Tests (+/- 45 days) The Plan of Treatment section includes future care activities for the patient from all [place] treatmentfacilities. This section includes future appointments and future orders which are active, pending or scheduled. Future Appointments This section includes appointments that were scheduled to occur 6 months from the date of the Encounter, up to a maximum of 20 appointments. The data comes from all [facility]. Appointment Date/Time Appointment Type Appointme nt Facility Name Dec 15, 2023 08:00 AM [facility] Dec 24, 2023 05:00 PM AMBULATORY - REHAB MEDICIN E [facility] Feb 02, 2024 11:00 AM AMBULATORY [...] of theEncounter. The data comes from all [facility]. Test Date/Time Test Type Test Details Facility Name Nov 27, 2023 02:51 PM Consult Order COMMUNITY CARE-WOUND CARE PC Cons Employee Health Nurse's Choice [facility] Jan 05, 2024 08:12 AM Consult Order DERMATOLOG Y OUTPT Cons Employee Health Nurse[facility] Choice [facility] Jan 21, 2024 08:00 AM Imaging - General Radiology Order ESOPHAGRAM VIDEO SWALLOW [facility] Advance Directives: All historical and current Section Date Range: From patient's date of to the date document was created. This section includes ALL of a patient's completed or amended [place] Advance and Rescinded Directives. The entries below indicate that a directive exists for the patient, but an actual copy is not included with this document. The data comes from all [facility]. Date Advance Directives Provider Source Jan 25, 2004 ADVANCE DIRECTIVE ONEIL KEITH ([facility]) Encounter Notes: All associated encounter notes This section contains the clinical notes associated to the Encounter. Date/Time Encounter Note(s) Provider Source Dec 10, 2023 08:02 AM WOUND CARE CONSULT : LOCAL TITLE: WOC NURSE CONSULT STANDARD TITLE: WOUND CARE CONSULT DATE OF NOTE: DEC 10, 2023@08:02 ENTRY DATE: DEC 10, 2023@08:02:28 AUTHOR: HOLLY GERONIMO COSIGNER: URGENCY: STATUS: COMPLETED WOC NURSE CONSULT Has ADDENDA WOUND OSTOMY CONTINENCE ([facility]) NURSING ASSESSMENT: REASON FOR CONSULT: needs a standard air mattress, has a left gluteal wound PROBLEM LIST: Active problems - Computerized Problem List is the source for the followin. Onychomycosis (SNOMED CT 850591259) 2. GERD - Gastro-Esophageal Reflux Disease ([facility] [id number]) 3. OA - Osteoarthritis ([facility] 840908264) 4. HTN - Hypertension ([facility] [id number]) 5. Tinnitus ([facility] 75049299) 6. Sensorineural Hearing Loss, Bilateral ([facility] [id number]) 7. Solitary Nodule of Lung ([facility] [id number]) 8. Anxiety ([facility] 11828989) 9. Parkinson's disease 10. Prostate Cancer ([facility] [id number]) - s/p radical prostatectomy (10/1998). [place] 3+3,pT2c,N0MX. 11. Nephrolithiasis - s/p surgical lithotomy (1961), ESWL (early , 1998) 12. Idiopathic peripheral neuropathy 13. Hyperlipidemia ([facility] [id number]) 14. 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 CHF - Congestive Heart Failure ([facility] [id number]) WOUND HISTORY: initial consult ASSESSMENT: Carburetor Rebuilder placed call to [place], spoke with therapist Laisha Parham ). A perimeter bed was requested with air feature. Discussed with American Studies Professor Tonie Gastelum ([phone]) that patient has a sitting wound. No further information on the wound was available during call, being cared for by nursing. Facility is requesting a perimeter bed with extra length at 84, with lateral rotation air mattress. The only bed with all these features from [facility] is the PressureGuard APM2 Safety Tira with pump. Per facility staff, patient is not usually incontinent, and transfers in and out of bed with assist of 2 staff, and used a U-step walker, can ambulate about 200 feet. Patient is able to roll side to side in bed with some assistance. A foam mattress would be appropriate at this time, however due to incontinence and pelvic wound, an air mattress with lateral rotation would benefit microclimate and bony prominence offloading. Carburetor Rebuilder placing consult for the bed through [facility]: bed item number [id number], with digital control unit item number 5900, to be set to Alternating. Per facility, bed frame is not needed. PRESSURE INJURY RISK ASSESSMENT: Score 13-14 Moderate Risk SITTING SURFACES: Recommend using a foam cushion when out of bed on bedside chair and w/c WOUND TREATMENT/INTERVENTIONS/PLAN OF CARE: Based on phone assessment details, patient has rolling and bed mobility and gets out of bed without ceiling lift. ACTIVITY ORDERS/RECOMMENDATIONS: no restrictions related to wound care at this time Wound care to Left gluteal wound per facility. Carburetor Rebuilder available if needs arise for wound care recommendations. PRESSURE INJURY PREVENTION: ordered 1) Daily skin inspection 2) Repositioning in Bed Q2 Hours a) As appropriate to prevent pressure to bony prominences. 3) Elevate heels off a) Using pillows or boots 4) Head of Bed<30 degrees (EXCEPT VAD protector or tube feeds) 5) Sitting Precautions a) Encourage pressure relief to bony prominences and use of cushions as appropriate. b)Curve Cushion for WC 6) Mobility a) Encourage safe ambulation with appropriate assistive devices 7) Moisture management a) Keep skin clean and dry using skin barrier for protection and ultrasorb chux for absorption. Use containment devices as needed. 8) Device safety: (oxygen tubing, other respiratory devices, c-collars, TLSO braces, splints, EDSON wraps, etc. a) Inspect skin under ALL devices every shift 9) Patient education a) Provide patient/family education related to pressure ulcer prevention. BUTTOCKS PREVENTION ORDERS: - Position change q2h hours - CURVE CUSHION for chair when OOB, limit chair sitting to 2 hours - Send CURVE CUSHION home with upon discharge SACRUM/COCCYX PROTECTION: - apply SACRAL mepilex border, okay to apply upside down to cover more area - change DAILY and PRN GOALS: - lateral rotation via mattress NEXT STEPS: - continue with diligent offloading of bony prominences - next available mattress would be a standard Easy Air LR with extra lenth, or a foam mattress with wings from [employer] [id number] EDUCATION: - staff educated on surfaces FOLLOW UP: - [facility] will follow up to determine delivery of mattress /preethi/ AYALA SEBASTIAN, RN, CWOCN Certified Wound, Ostomy, Continence Nurse Signed: 12/10/2023 08:13 12/22/2023 ADDENDUM STATUS: COMPLETED Carburetor Rebuilder received VM from RN American Studies Professor Maria Isabel wonderjose when mattress can be expected. Carburetor Rebuilder updated by [facility] that estimated delivery date is December 23. Carburetor Rebuilder left this info and WOC Triage phone number ([phone], option 6) on Maria Isabel's voicemail [phone]. /AYALA Benitez, RN, CWOCN Certified Wound, Ostomy, Continence Nurse Signed: 12/22/2023 12:45 HOLLY GERONIMO [facility]
--- OUTSIDE RECORDS SUMMARY | 2024-01-19 13:55 | XMS_ITS | Encounter Summary ---
Author Name Department of Vetera Affairs Organization Department of Vetera ns Affairs Address [address] [place] [address] Support Name Relationship Address Phone BRANDON Next [...] MEDIC ARE SUPPL EMENT Oct 05, 2016 [id number] Hellen HIGGINS ETER PATIENT [place] MEDIC ARE SUPPL EMENT Oct 05, 2016 [id number] 1A [phone] RONALDO,Hellen ETER PATIENT [place] MEDIC ARE SUPPL EMENT Oct 05, 2016 [id number] 1A [phone] Hellen HIGGINS ETER PATIENT MEDICARE (WNR) MEDICARE (M) PART A Nov 05, 2001 PART A [id number] Hellen HIGGINS ETER PATIENT MEDICARE (WNR) MEDICARE (M) PART B Nov 05, 2001 PART B [id number] Hellen HIGGINS ETER PATIENT MEDICARE (WNR) MEDICARE (M) PART A Nov 05, 2001 PART A [id number] Hellen HIGGINS PATIENT MEDICARE (WNR) MEDICARE (M) PART B Nov 05, 2001 PART B [id number] [phone] ROGELIOMAUCARLOSHellen [place] PATIENT Selected Encounter This section includes the information on record at [place] for the Encounter. Date/Time Encounter Type Encounter Description Reason Pro vider Source Dec 07, 2023 11:47 AM Outpatient Encounter TELEPHONE/ANCILLARY IHE Encounter Template Text not used by [place] Plan of Treatment: Future Appointments (+ 6 months) and Future Tests (+/- 45 days) The Plan of Treatment section includes future care activities for the patient from all [place] treatmentfacilities. This section includes future appointments and future orders which are active, pending or scheduled. Future Appointments This section includes appointments that were scheduled to occur 6 months from the date of the Encounter, up to a maximum of 20 appointments. The data comes from all [facility]. Appointment Date/Time Appointment Type Appointme nt Facility Name Dec 15, 2023 08:00 [facility] Dec 24, 2023 05:00 PM AM[facility]ULATORY - REHAB MEDICIN E [facility] Feb 02, 2024 11:00 AM AMBULATORY - MEDICINE [place] ([facility]) Active, Pending, and Scheduled Orders This section includes a listing of several types of active, pending, and scheduled orders, including clinic medications orders, diagnostic test orders, procedure orders and consult orders; where the start date of the order is 45 days before the date of the Encounter or 45 days after the date of theEncounter. The data comes from all [facility]. Test Date/Time Test Type Test Details Facility Name Nov 27, 2023 02:51 PM Consult Order COMMUNITY CARE-WOUND CARE PC Cons Signal Operator's Choice [facility] Jan 05, 2024 08:12 AM Consult Order DERMATOLOG Y OUTPT Cons Signal Operator[facility] Jan 21, 2024 08:00 AM Imaging - General Radiology Order ESOPHAGRAM VIDEO SWALLOW [facility] Advance Directives: All historical and current Section Date Range: From patient's date of to the date document was created. This section includes ALL of a patient's completed or amended [place] Advance and Rescinded Directives. The entries below indicate that a directive exists for the patient, but an actual copy is not included with this document. The data comes from all [facility]. Date Advance Directives Provider Source Jan 25, 2004 ADVANCE DIRECTIVE ONEIL KEITH ([facility]) Encounter Notes: All associated encounter notes This section contains the clinical notes associated to the Encounter. Date/Time Encounter Note(s) Provider Source Dec 07, 2023 11:47 AM COMMUNITY RESIDENTIAL CARE NOTE: LOCAL TITLE: [facility] CARE COORDINATION NOTE STANDARD TITLE: COMMUNITY RESIDENTIAL CARE NOTE DATE OF NOTE: DEC 07, 2023@11:47 ENTRY DATE: DEC 07, 2023@11:47:54 AUTHOR: TIARA WALKER EXP COSIGNER: URGENCY: STATUS: COMPLETED [facility] Care Coordination REFERRING PROVIDER INFORMATION Penitentiary: [facility] Referring Provider: Rhoda Junior RESIDENTIAL POINT OF CONTACT FOR APPOINTMENT COORDINATION Name: Rhoda Junior Email: N/A TYPE OF REFERRAL Diagnostic Evaluation: Flexible endoscopic evaluation of swallowing REASON FOR REFERRAL [place] has increased cough episodes and reporting of food sticking in throat. PLAN N/A Notes in S drive Provider to review for consult placement. /preethi/ TIARA WALKER PSA Signed: 12/07/2023 11:52 Receipt Acknowledged By: 12/07/2023 12:11 /preethi/ JANINE MARION DO PHYSICIAN, PM&R TIARA WALKER [facility]
--- OUTSIDE RECORDS SUMMARY | 2024-01-19 13:55 | XMS_ITS | Encounter Summary ---
Author Name Department of Vetera Affairs Organization Department of Vetera ns Affairs Address [address] [place] [address] Support Name Relationship Address Phone BRANDON Next [...] MEDIC ARE SUPPL EMENT Oct 05, 2016 [id number] [phone] Hellen HIGGINS ETER PATIENT [place] MEDIC ARE SUPPL EMENT Oct 05, 2016 [id number] [phone] RONALDO,Hellen ETER PATIENT [place] MEDIC ARE SUPPL EMENT Oct 05, 2016 [id number] [phone] Hellen HIGGINS ETER PATIENT MEDICARE (WNR) MEDICARE (M) PART A Nov 05, 2001 PART A [id number] Hellen HIGGINS ETER PATIENT MEDICARE (WNR) MEDICARE (M) PART B Nov 05, 2001 PART B [id number] Hellen HIGGINS ETER PATIENT MEDICARE (WNR) MEDICARE (M) PART A Nov 05, 2001 PART A [id number] Hellen HIGGINS NACHOBRANDT PATIENT MEDICARE (WNR) MEDICARE (M) PART B Nov 05, 2001 PART B [id number] [phone] ROGELIOMAUCARLOSHellen [place] PATIENT Selected Encounter This section includes the information on record at [place] for the Encounter. Date/Time Encounter Type Encounter Description Reason Pro vider Source Nov 30, 2023 10:19 AM Outpatient Encounter TELEPHONE/ANCILLARY IHE Encounter Template Text not used by [place] Plan of Treatment: Future Appointments (+ 6 months) and Future Tests (+/- 45 days) The Plan of Treatment section includes future care activities for the patient from all [place] treatmentfacilities. This section includes future appointments and future orders which are active, pending or scheduled. Future Appointments This section includes appointments that were scheduled to occur 6 months from the date of the Encounter, up to a maximum of 20 appointments. The data comes from all [facility] facilities. Appointment Date/Time Appointment Type Appointme nt Facility Name Dec 15, 2023 08:00 AM AMBULATORY - NONE [facility] Dec 24, 2023 05:00 PM AMBULATORY - REHAB MEDICIN E [facility] Feb 02, 2024 11:00 AM AMBULATORY - MEDICINE [facility] ([facility]) Active, Pending, and Scheduled Orders This section includes a listing of several types of active, pending, and scheduled orders, including clinic medications orders, diagnostic test orders, procedure orders and consult orders; where the start date of the order is 45 days before the date of the Encounter or 45 days after the date of theEncounter. The data comes from all [facility]. Test Date/Time Test Type Test Details Facility Name Nov 27, 2023 02:51 PM Consult Order COMMUNITY CARE-WOUND CARE PC Cons Education Sales Consultant's Choice [facility] Jan 05, 2024 08:12 AM Consult Order DERMATOLOG Y OUTPT Cons Education Sales Consultant's [facility] Advance Directives: All historical and current Section Date Range: From patient's date of to the date document was created. This section includes ALL of a patient's completed or amended [place] Advance and Rescinded Directives. The entries below indicate that a directive exists for the patient, but an actual copy is not included with this document. The data comes from all [facility]. Date Advance Directives Provider Source Jan 25, 2004 ADVANCE DIRECTIVE ONEIL KEITH ([facility]) Encounter Notes: All associated encounter notes This section contains the clinical notes associated to the Encounter. Date/Time Encounter Note(s) Provider Source Nov 30, 2023 03:27 PM ADDENDUM: LOCAL TITLE: Addendum STANDARD TITLE: ADDENDUM DATE OF NOTE: NOV 30, 2023@15:27:07 ENTRY DATE: NOV 30, 2023@15:27:08 AUTHOR: JENNIFER DEJESUS EXP COSIGNER: URGENCY: STATUS: COMPLETED [place] returned same day. /HOMAR Lacey SHIPPING AND RECEIVING OPERATOR HOMAR Signed: 11/30/2023 15:27 Receipt Acknowledged By: 12/01/2023 07:42 /darlyn MAXWELL Management and Boat Worker --- Original Document --- 11/30/23 [facility] OF [facility]: Shelter: [facility] contact: Maria Isabel Comment: Approve 2 day bed hold for 11/26/23 and 11/27/23 Type of absence: Hospitalization Date entered: Nov Hospital: [place] Comment: /HOMAR Lacey SHIPPING AND RECEIVING OPERATOR HOMAR Signed: 11/30/2023 10:29 Receipt Acknowledged By: 11/30/2023 10:52 /darlyn MAXWELL Management and Boat Worker JENNIFER DEJESUS [facility] Nov 30, 2023 10:28 AM COMMUNITY SNF CARE NOTE: LOCAL TITLE: [facility] LE[facility] STANDARD TITLE: COMMUNITY SNF CARE NOTE DATE OF NOTE: NOV 30, 2023@10:28 ENTRY DATE: NOV 30, 2023@10:28:38 AUTHOR: JENNIFER DEJESUS EXP COSIGNER: URGENCY: STATUS: COMPLETED [facility] Has ADDENDA Shelter: [facility] Facility contact: Maria Isabel Comment: Approve 2 day bed hold for 11/26/23 and 11/27/23 Type of absence: Hospitalization Date entered: Nov Hospital: [place] Comment: /preethi/ HOMAR MCKINNON SHIPPING AND RECEIVING OPERATOR HOMAR Signed: 11/30/2023 10:29 Receipt Acknowledged By: 11/30/2023 10:52 /preethi/ CONNIE MAXWELL Management and Boat Worker 11/30/2023 ADDENDUM STATUS: COMPLETED returned same day. /preethi/ HOMAR MCKINNON SHIPPING AND RECEIVING OPERATOR TERMINAL SUPERINTENDENT Signed: 11/30/2023 15:27 Receipt Acknowledged By: * AWAITING SIGNATURE * CONNIE MAXWELL [facility]
--- OUTSIDE RECORDS SUMMARY | 2024-01-19 13:55 | XMS_ITS | Encounter Summary ---
Author Name Department of Vetera Affairs Organization Department of Vetera ns Affairs Address [address] [place] [address] Support Name Relationship Address Phone BRANDON Next [...] MEDIC ARE SUPPL EMENT Oct 05, 2016 [id number] 1A [phone] Hellen HIGGINS ETER PATIENT [place] MEDIC ARE SUPPL EMENT Oct 05, 2016 [id number] 1A [phone] RONALDO,Hellen ETER PATIENT [place] MEDIC ARE SUPPL EMENT Oct 05, 2016 [id number] 1A [phone] Hellen HIGGINS ETER PATIENT MEDICARE (WNR) MEDICARE (M) PART A Nov 05, 2001 PART A [id number] Hellen HIGGINS ETER PATIENT MEDICARE (WNR) MEDICARE (M) PART B Nov 05, 2001 PART B [id number] [phone] Hellen HIGGINS ETER PATIENT MEDICARE (WNR) MEDICARE (M) PART A Nov 05, 2001 PART A [id number] Hellen HIGGINS NACHOBRANDT PATIENT MEDICARE (WNR) MEDICARE (M) PART B Nov 05, 2001 PART B [id number] ROGELIOMAUCARLOSHellen [place] PATIENT Selected Encounter This section includes the information on record at [place] for the Encounter. Date/Time Encounter Type Encounter Description Reason Pro vider Source 2023 12:12 PM Outpatient Encounter TELEPHONE/ANCILLARY IHE Encounter Template Text not used by [place] Plan of Treatment: Future Appointments (+ 6 months) and Future Tests (+/- 45 days) The Plan of Treatment section includes future care activities for the patient from all [place] treatmentfacilities. This section includes future appointments and future orders which are active, pending or scheduled. Future Appointments This section includes appointments that were scheduled to occur 6 months from the date of the Encounter, up to a maximum of 20 appointments. The data comes from all [facility]. Appointment Date/Time Appointment Type Appointme nt Facility Name Dec 15, 2023 08:00 [facility] Dec [facility], 2023 05:00 PM AMBULATORY - REHAB MEDICIN E [facility] Feb 02, 2024 11:00 AM AMBULATORY [...] theEncounter. The data comes from all [facility]. Test Date/Time Test Type Test Details Facility Name Nov 27, 2023 02:51 PM Consult Order COMMUNITY CARE-WOUND CARE PC Cons [employer] Specialist's Choice [facility] Jan 05, 2024 08:12 AM Consult Order DERMATOLOG Y OUTPT Cons [employer] Specialist's [facility] Advance Directives: All historical and current Section Date Range: From patient's date of to the date document was created. This section includes ALL of a patient's completed or amended [place] Advance and Rescinded Directives. The entries below indicate that a directive exists for the patient, but an actual copy is not included with this document. The data comes from all [facility]. Date Advance Directives Provider Source Jan 25, 2004 ADVANCE DIRECTIVE ONEIL KEITH ([facility]) Encounter Notes: All associated encounter notes This section contains the clinical notes associated to the Encounter. Date/Time Encounter Note(s) Provider Source 2023 12:12 PM COMMUNITY SKILLED NURSING CARE NOTE: LOCAL TITLE: [facility] CARE COORDINATION NOTE STANDARD TITLE: COMMUNITY SKILLED NURSING CARE NOTE DATE OF NOTE: 2023@12:12 ENTRY DATE: 2023@12:12:58 AUTHOR: TIARA WALKER EXP COSIGNER: URGENCY: STATUS: COMPLETED [facility] CARE COORDINATION NOTE Has ADDENDA Community Long-Term Program Care Coordination REFERRING PROVIDER INFORMATION Long-Term: [facility] Referring Provider: Laisha Parham SKILLED NURSING POINT OF CONTACT FOR APPOINTMENT COORDINATION Name: Laisha Parham Email: [email or web address] TYPE OF REFERRAL Equipment: Standard Air Mattress REASON FOR REFERRAL has a flesh wound PLAN Ship it to the [facility]: [address] [address]. Provider to review for consult placement. /preethi/ TIARA WALKER PSA Signed: 2023 12:18 Receipt Acknowledged By: 2023 13:00 /preethi/ JANINE MARION DO PHYSICIAN, PM&R 2023 ADDENDUM STATUS: COMPLETED ordered /preethi/ JANINE MARION DO PHYSICIAN, PM&R Signed: 2023 13:03 TIARA WALKER [facility]
--- OUTSIDE RECORDS SUMMARY | 2024-01-19 13:56 | XMS_ITS | Encounter Summary ---
Author Name Department of Vetera ns Affairs Organization Department of Vetera ns Affairs Address [address] [place] [address] Support Name Relationship Address Phone BRANDON Next [...] MEDIC ARE SUPPL EMENT Oct 05, 2016 [id number] 1A [phone] RONALDO,P ETER PATIENT [place] MED[place] SUPPLEMEN JUSTINA MEDIC ARE SUPPL EMENT Oct 05, 2016 [id number] 1A [phone] RONALDO,P ETER PATIENT [place] MED[place] SUPPLEMEN JUSTINA MEDIC ARE SUPPL EMENT Oct 05, 2016 [id number] 1A [phone] RONALDO,P ETER PATIENT MEDICARE (WNR) MEDICARE (M) PART A Nov 05, 2001 PART A [id number] RONALDO,P ETER PATIENT MEDICARE (WNR) MEDICARE (M) PART B Nov 05, 2001 PART B [id number] [phone] RONALDO,P ETER PATIENT MEDICARE (WNR) MEDICARE (M) PART A Nov 05, 2001 PART A [id number] [phone] Hlelen HIGGINS PATIENT MEDICARE (WNR) MEDICARE (M) PART B Nov 05, 2001 PART B [id number] [phone] ROGELIOHellen FERNANDO [place] PATIENT Selected Encounter This section includes the information on record at [place] for the Encounter. Date/Time Encounter Type Encounter Description Reason Provider Source Dec 15, 2023 12:17 PM RN CARE EA 15 MIN HH/HOSPICE CNH FOLLOW-UP ICD-10-CM F41.9 Anxiety disorder, unspecified ANABELLE BINGHAM IHMatt Encounter Template Text not used by [place] Assessments - Encounter Diagnoses This section includes the primary and secondary diagnoses documented for the Encounter. Date/Time Primary/Secondary Diagnosis Diagnosis Name Provider Source Dec 23, 2023 09:00 AM PRIMARY Anxiety disorder, unspecified ANABELLE BINGHAM [facility] Plan of Treatment: Future Appointments (+ 6 months) and Future Tests (+/- 45 days) The Plan of Treatment section includes future care activities for the [facility] This section includes future appointments and future orders which are active, pending or scheduled. Future Appointments This section includes appointments that were scheduled to occur 6 months from the date of the Encounter, up to a maximum of 20 appointments. The data comes from all [place] treatment [facility]. Appointment Date/Time Appointment Type Appointme nt Facility Name Dec 24, 2023 05:00 PM AMBULATORY - REHAB MEDICIN E [facility] Feb 02, 2024 11:00 AM [...] of theEncounter. The data comes from all [place] treatment [facility]. Test Date/Time Test Type Test Details Facility Name Nov 27, 2023 02:51 PM Consult Order COMMUNITY CARE-WOUND CARE PC Cons [facility] Jan 05, 2024 08:12 AM Consult Order DERMATOLOG Y OUTPT Cons [facility] Jan 21, 2024 08:00 AM Imaging - General Radiology Order ESOPHAGRAM VIDEO SWALLOW [facility] Advance Directives: All historical and current Section Date Range: From patient's date of to the date document was created. This section includes ALL of a patient's completed or amended [place] Advance and Rescinded Directives. The entries below indicate that a directive exists for the patient, but an actual copy is not included with this document. The data comes from all [place] facilities. Date Advance Directives Provider Source Jan 25, 2004 ADVANCE DIRECTIVE ONEIL KEITH ([facility]) Encounter Notes: All associated encounter notes This section contains the clinical notes associated to the Encounter. 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% S/C LOSS OF SENSE OF SMELL 10% 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% 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 10% S/C DEFORMITY OF THE PENIS 0% 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% S/C PARALYSIS OF FIFTH CRANIAL NERVE 10% S/C LABYRINTHITIS 10% S/C PARALYSIS OF MUSCULOSPIRAL NERVE 20% S/C PARALYSIS OF MUSCULOSPIRAL NERVE 20% 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 reported no other concerns/complaints since placement or last visit. /Retail And Promotions Coordinator feels 's rights as a resident of a correction have been maintained (i.e., the right to be treated with dignity and respect, free from abuse, neglect and discrimination based on race, color, national origin, disability, age, sex, sexual orientation, or rastafari): Yes [facility] staff provided a copy of the [place] reference sheet, containing contact information for [facility] staff and the [facility], to the /Retail And Promotions Coordinator: N/A, annual requirement previously met Dupuyer appears to be well adjusted to residing in this [facility]: Yes [place]er is offered daily activities: Yes [place]er is offered spiritual services: Yes [facility] STAFF OBSERVATIONS Quality of sensory and environmental aesthetic is adequate: Yes Facility cleanliness is adequate: Yes Fluids available: Yes 's appearance: [place]er appeared: Appropriately groomed, dressed for time of day jail staff is courteous: Yes Total time spent for visit (in minutes) 10 min Total travel time 75 min INFORMATION OBTAINED FROM [facility] MEDICAL RECORD REVIEW Hospitalization since placement or last visit: No Emergency room visit since placement or last visit: Start date: Nov Stop date: November 26, 2023 Pertinent information: buttock cyst/wound CLINICAL REVIEW Socialization Ability: Fair Restraint free since placement or last visit: Yes Behavioral symptoms present: No FUNCTIONAL STATUS Activity of Daily Living (ADL) Loss of ADL function since placement or last visit: No Weights and vital signs recorded monthly, or as ordered: Yes Most recent weight taken by [facility] staff: Weight (lbs): 178 Date: December 10, 2023 Weight loss of 5% or greater in the last 3 months: No Diet: Regular Skin assessment completed at appropriate intervals: Yes Pressure injuries: None Specialized wound care: Skin tears/abrasions/other skin condition(s): L buttock: cyst 12/11/2023 14:18 Assessment Summary Note Text: Wound Documentation Summary: resident has a cyst on left buttocks that has improved, color less purplish and red color, less swollen, wound clinic appt 12/15/23 at 0800. updated. Intervention: up for meals and then lay back in bed to offload, air mattress, new w/c cushion, staff to offload frequently, twice a week bathing. daily observation and tx by nursing. Pain management is effective: Yes DOCUMENTATION OVERSIGHT Physician, Nursing, and Area Director documentation completed at regular intervals in accordance with State regulations: Yes [place]er assessed by a provider at required intervals: Yes As needed (PRN) medication effectiveness is documented: Yes [facility] Plan of Care updated: Yes Date Plan of Care updated: September 16, 2023 Care plan reflects 's individualized care needs and includes multidisciplinary participation: Yes LIFE-SUSTAINING TREATMENT Dupuyer's preferences for Life-Sustaining Treatment (LST) are documented and have been reviewed in the [facility] medical record: No 's Life-Sustaining Treatment (LST) progress note and orders are documented in the [place] medical record: No Explanation: NA SAFETY ------ Dupuyer has not fallen since placement or last visit. No medication errors since placement or last visit. Dupuyer attempted to elope from the facility: No Evidence of abuse/neglect either confirmed or under investigation: No Other adverse event(s) since placement or last visit: No LEVEL OF CARE MDS RUG or PDPM score is consistent with the 's care needs. DISPOSITION Dupuyer appears with low care needs where an alternative level of care may be appropriate: No Discharge plan in place: N/A, Dupuyer is receiving intermediate frame tender care (LTC) PROGRAM CARE COORDINATION PLAN ---- [place] PLAN OF CARE: Routine oversight of [facility] care Total time spent for chart review (in minutes) 15 min /preethi/ Yelitza Bingham, assistant clinical director Health Nurse Coordinator Signed: 12/16/2023 11:32 YELITZA BINGHAM [facility]
--- OUTSIDE RECORDS SUMMARY | 2024-01-19 13:56 | XMS_ITS | Encounter Summary ---
Author Name Department of Vetera Affairs Organization Department of Vetera ns Affairs Address [address] [place] [address] Support Name Relationship Address Phone BRANDON Next [...] MEDIC ARE SUPPL EMENT Oct 05, 2016 [id number] 1A [phone] RONALDO,P ETER PATIENT [place] MEDIC ARE SUPPL EMENT Oct 05, 2016 [id number] 1A [phone] RONALDO,P ETER PATIENT [place] MED[place] SUPPLEMEN JUSTINA MEDIC ARE SUPPL EMENT Oct 05, 2016 [id number] RONALDO,P ETER PATIENT MEDICARE (WNR) MEDICARE (M) PART A Nov 05, 2001 PART A [id number] RONALDO,P ETER PATIENT MEDICARE (WNR) MEDICARE (M) PART B Nov 05, 2001 PART B [id number] RONALDO,P ETER PATIENT MEDICARE (WNR) MEDICARE (M) PART A Nov 05, 2001 PART A [id number] HEHellen FERNANDO NACHOBRANDT PATIENT MEDICARE (WNR) MEDICARE (M) PART B Nov 05, 2001 PART B [id number] Hellen HIGGINS PATIENT Selected Encounter This section includes the information on record at [place] for the Encounter. Date/Time Encounter Type Encounter Description Reason Pro vider Source Jan 04, 2024 03:10 PM Outpatient Encounter EVENT (HISTORICAL) IHE Encounter Template Text not used by [...] 20 appointments. The [facility] all [facility]. Appointment Date/Time Appointment Type Appointme nt Facility Name Feb 02, 2024 11:00 AM AMBULATORY - MEDICINE [facility] ([facility]) Active, Pending, and Scheduled Orders This section includes a listing of several types of active, pending, and scheduled orders, including clinic medications orders, diagnostic test orders, procedure orders and consult orders; where the start date of the order is 45 days before the date of the Encounter or 45 days after the date of theEncounter. The data comes from all [facility] facilities. Test Date/Time Test Type Test Details Facility Name Nov 27, 2023 02:51 PM Consult Order COMMUNITY CARE-WOUND CARE PC Cons [facility] Jan 05, 2024 08:12 AM Consult Order DERMATOLOG Y OUTPT Cons [facility] Jan 21, 2024 08:00 AM Imaging - General Radiology Order ESOPHAGRAM VIDEO SWALLOW [facility] Advance Directives: All historical and [...] Jan 25, 2004 ADVANCE DIRECTIVE ONEIL KEITH ([facility])
--- OUTSIDE RECORDS SUMMARY | 2024-01-19 13:56 | XMS_ITS | Encounter Summary ---
Author Name Department of Vetera Affairs Organization Department of Vetera ns Affairs Address [address] [place] [address] Support Name Relationship Address Phone BRANDON Next [...] MEDIC ARE SUPPL EMENT Oct 05, 2016 [id number] 1A [phone] Hellen HIGGINS ETER PATIENT [place] SU[place] MEDIC ARE SUPPL EMENT Oct 05, 2016 [id number] 1A [phone] RONALDO,P ETER PATIENT [place] MEDICARE SUPPLEMEN JUSTINA MEDIC ARE SUPPL EMENT Oct 05, 2016 [id number] 1A [phone] Hellen HIGGINS ETER PATIENT MEDICARE (WNR) MEDICARE (M) PART A Nov 05, 2001 PART A [id number] Hellen HIGGINS ETER PATIENT MEDICARE (WNR) MEDICARE (M) PART B Nov 05, 2001 PART B [id number] [phone] Hellen HIGGINS ETER PATIENT MEDICARE (WNR) MEDICARE (M) PART A Nov 05, 2001 PART A [id number] Hellen HIGGINS PATIENT MEDICARE (WNR) MEDICARE (M) PART B Nov 05, 2001 PART B [id number] RONALDOHellen [place] PATIENT Selected Encounter This section includes the information on record at [place] for the Encounter. Date/Time Encounter Type Encounter Description Reason Pro vider Source Oct 14, 2023 12:00 PM Outpatient Encounter COMMUNITY CARE CONSULT IHE [...] 20 appointments. The data comes from all [facility]. Appointment Date/Time Appointment Type Appointme nt Facility Name Nov 26, 2023 01:29 PM AMBULATORY - NONE [facility] Dec 15, 2023 08:00 AM [facility] Dec 24, 2023 05:00 PM AMBULATORY - REHAB MEDICIN E [facility] Feb 02, 2024 11:00 AM [...] of theEncounter. The data comes from all [facility] facilities. Test Date/Time Test Type Test Details Facility Name Nov 27, 2023 02:51 PM Consult Order COMMUNITY CARE-WOUND CARE PC Cons [facility] Advance Directives: All historical and current Section Date Range: From patient's date of to the date document was created. This section includes ALL of a patient's completed or amended [place] Advance and Rescinded Directives. The entries below indicate that a directive exists for the patient, but an actual copy is not included with this document. The data comes from all [facility]. Date Advance Directives Provider Source Jan 25, 2004 ADVANCE DIRECTIVE ONEIL KEITH ([facility]) Encounter Notes: All associated encounter notes This section contains the clinical notes associated to the Encounter. Date/Time Encounter Note(s) Provider Source Oct 14, 2023 12:00 PM NONVA CONSULT: LOCAL TITLE: COMMUNITY CARE CONSULT RESULT ENT STANDARD TITLE: NONVA CONSULT DATE OF NOTE: OCT 14, 2023@12:00 ENTRY DATE: JAN 04, 2024@11:14:33 AUTHOR: KRISTINE KAY EXP COSIGNER: URGENCY: STATUS: COMPLETED VistA Imaging - Scanned Document SCANNED DOCUMENT SIGNATURE NOT REQUIRED Electronically Filed: 01/04/2024 by: KRISTINE KAY [facility] KRISTINE KAY [facility]
--- OUTSIDE RECORDS SUMMARY | 2024-01-19 13:56 | XMS_ITS | Encounter Summary ---
Author Name Department of Vetera ns Affairs Organization Department of Vetera ns Affairs Address [address] [place] [address] Support Name Relationship Address Phone BRANDON Next [...] MEDIC ARE SUPPL EMENT Oct 05, 2016 [id number] 1A [phone] RONALDO,P ETER PATIENT [place] MEDIC ARE SUPPL EMENT Oct 05, 2016 [id number] 1A [phone] RONALDO,P ETER PATIENT [place] MEDICARE SUPPLEMEN JUSTINA MEDIC ARE SUPPL EMENT Oct 05, 2016 [id number] 1A [phone] ORNALDO,P ETER PATIENT MEDICARE (WNR) MEDICARE (M) PART B Nov 05, 2001 PART B [id number] RONALDO,P ETER PATIENT MEDICARE (WNR) MEDICARE (M) PART A Nov 05, 2001 PART A [id number] RONALDO,P ETER PATIENT MEDICARE (WNR) MEDICARE (M) PART A Nov 05, 2001 PART A [id number] RONALDOHellen [place] PATIENT MEDICARE (WNR) MEDICARE (M) PART B Nov 05, 2001 PART B [id number] Hellen BENTON PATIENT Selected Encounter This section includes the information on record at [place] for the Encounter. Date/Time Encounter Type Encounter Description Reason Pro vider Source Dec 21, 2023 03:34 PM Outpatient Encounter SPEECH-LANGUAGE PATHOLOGY IHE Encounter Template Text not used by [place] Plan of Treatment: Future Appointments (+ 6 months) and Future Tests (+/- 45 days) The Plan of Treatment section includes future care activities for the patient from all [place] treatmentfacilities. This section includes future appointments and future orders which are active, pending or scheduled. Future Appointments This section includes appointments that were scheduled to occur 6 months from the date of the Encounter, up to a maximum of 20 appointments. The data comes from all [facility] facilities. Appointment Date/Time Appointment Type Appointme nt Facility Name Dec 24, 2023 05:00 PM AMBULATORY - REHAB MEDICIN E [facility] Feb 02, 2024 11:00 AM AMBULATORY - MEDICINE [facility] ([facility]) Active, Pending, and Scheduled Orders This section includes a listing of several types of active, pending, and scheduled orders, including clinic medications orders, diagnostic test orders, procedure orders and consult orders; where the start date of the order is 45 days before the date of the Encounter or 45 days after the date of theEncounter. The data comes from all [facility] facilities. Test Date/Time Test Type Test Details Facility Name Nov 27, 2023 02:51 PM Consult Order COMMUNITY CARE-WOUND CARE PC Cons [facility] Jan 05, 2024 08:12 AM Consult Order DERMATOLOG Y OUTPT Cons [facility] Jan 21, 2024 08:00 AM Imaging - General Radiology Order ESOPHAGRAM VIDEO SWALLOW [facility] Advance Directives: All historical and current Section Date Range: From patient's date of to the date document was created. This section includes ALL of a patient's completed or amended [place] Advance and Rescinded Directives. The entries below indicate that a directive exists for the patient, but an actual copy is not included with this document. The data comes from all [place] facilities. Date Advance Directives Provider Source Jan 25, 2004 ADVANCE DIRECTIVE ONEIL KEITH ([facility]) Encounter Notes: All associated encounter notes This section contains the clinical notes associated to the Encounter. Date/Time Encounter Note(s) Provider Source Dec 21, 2023 03:34 PM COMMUNITY SENIOR CARE CARE CONSULT: LOCAL TITLE: [facility] SPEECH LANGUAGE PATHOLOGY AUTHORIZATION CONSULT STANDARD TITLE: COMMUNITY SENIOR CARE CARE CONSULT DATE OF NOTE: DEC 21, 2023@15:34 ENTRY DATE: DEC 21, 2023@15:34:54 AUTHOR: GENNA ALEXANDER COSIGNER: URGENCY: STATUS: COMPLETED [facility] SPEECH LANGUAGE PATHOLOGY AUTHORIZATION CONSULT Has [facility] Authorization Treatment requested from [facility]: Speech Pathology Diagnosis for treatment: Dysphagia Previous authorizations: 07/09/23: 4 dysphagia treatment sessions 11/25/23: 6 dysphagia treatment sessions [place] Therapy authorization: Speech Pathology Duration: Three weeks Number of sessions per week: 2 Criteria: Low (up to 149 minutes per week) Dates approved: 12/24/23 - 01/14/24 Summary: Medical Record and ASSISTANT ACCOUNT MANAGER documentation were reviewed. Mr. Benton is an 87 year old residing in [facility] with medical history significant for PD. [place] recently had choking episodes during meal. He is currently on Minced and Moist diet with mildly thick liquids or thin liquids via a Provale cup. ASSISTANT ACCOUNT MANAGER training compensatory strategies. Consult received to complete an outpt MBS but scheduling attempts have failed so far. Will include ASSISTANT ACCOUNT MANAGER's phone number to scheduling attempt note. Recommend measuring Peak cough flow and Peak expiratory flow, and working to increase cough strength via EMST (5x/week, x 5 weeks), if appropriate and patient is willing. E-consult and chart review total time: 15 minutes Recommendations: Outpatient MBS at this [place], measure PCF/PEF and begin EMST cough strengthening, if patient is interested/willing ADDITIONAL INFORMATION: This contract correction Physical/Occupational (PT/OT) and/or Speech Therapy authorization request was reviewed using the medical documentation, therapy evaluation(s) and therapy treatment plan(s) provided by the correction. Supportive VA documentation was also reviewed if available. The [place] was not clinically examined by this provider as part of the review. Contract correction therapy authorization reviews are conducted for the purposes of evaluating the appropriateness for therapy consistent with VA practices and approval for VA payment for correction therapy. Appropriate clinical care and medical clearance for therapy authorization requests are the responsibility of the [facility] correction provider. A current order for all therapies requested is required from the licensed independent practitioner directly overseeing this 's care at the [facility] correction. /es/ GENNA ALEXANDER MA, [facility]-ASSISTANT ACCOUNT MANAGER SPEECH LANGUAGE PATHOLOGIST Signed: 12/21/2023 15:46 Receipt Acknowledged By: 12/22/2023 11:45 /es/ RADHA RICHARD M.S.,[facility]-ASSISTANT ACCOUNT MANAGER SPEECH PATHOLOGIST 12/22/2023 07:03 /es/ JANINE MARION DO PHYSICIAN, PM&R 12/22/2023 07:43 /es/ WHIT GIBSON [facility] SOFTWARE QUALITY ASSURANCE ANALYST 12/22/2023 08:05 /es/ Dung Vaughn [facility] [employer] 12/22/2023 07:48 /es/ TIARA NEWBY 12/22/2023 ADDENDUM STATUS: COMPLETED Agree with ASSISTANT ACCOUNT MANAGER authorization as noted above. /preethi/ JANINE MARION DO PHYSICIAN, PM&R Signed: 12/22/2023 07:04 GENNA ALEXANDER [facility]
--- OUTSIDE RECORDS SUMMARY | 2024-01-19 13:56 | XMS_ITS | Encounter Summary ---
Author Name [facility] Organization [facility] Address [address] [place] [address] Support Name Relationship Address Phone BRANDON Next of Kin [address] [address] BRANODN Emergency Contact [address] [address] [...] MEDIC ARE SUPPL EMENT Oct 05, 2016 [id number] [phone] RONALDO,P ETER PATIENT [place] MEDICARE SUPPLEMEN [place] MEDIC ARE SUPPL EMENT Oct 05, 2016 [id number] [phone] RONALDO,P ETER PATIENT [place] MEDICARE SUPPLEMEN [place] MEDIC ARE SUPPL EMENT Oct 05, 2016 [id number] RONALDO,P ETER PATIENT MEDICARE (WNR) MEDICARE (M) PART A Nov 05, 2001 PART A [id number] RONALDO,P ETER PATIENT MEDICARE (WNR) MEDICARE (M) PART B Nov 05, 2001 PART B [id number] [phone] RONALDO,P ETER PATIENT MEDICARE (WNR) MEDICARE (M) PART A Nov 05, 2001 PART A [id number] HEABDULLAHIHellen [place] PATIENT MEDICARE ([place]NR) MEDICARE (M) PART B Nov 05, 2001 PART B [id number] [phone] RONALDOHellen [place] PATIENT Selected Encounter This section includes the information on record at [place] for the Encounter. Date/Time Encounter Type Encounter Description Reason Provider Source Dec 21, 2023 04:03 PM Outpatient Encounter SPEECH-LANGUAGE PATHOLOGY ICD-10-CM R13.10 Dysphagia, unspecified YORDY ALEXANDER IHMatt Encounter Template Text not used by [place] Assessments - Encounter Diagnoses This section includes the primary and secondary diagnoses documented for the Encounter. Date/Time Primary/Secondary Diagnosis Diagnosis Name Provider Source Dec 21, 2023 04:03 PM PRIMARY Dysphagia, unspecified EDUARDO ALEXANDER NA [facility] Plan of Treatment: Future Appointments (+ 6 months) and Future Tests (+/- 45 days) The Plan of Treatment section includes future care activities for the [facility] [place] [facility] This section includes future appointments and future orders which are active, pending or scheduled. Future Appointments This section includes appointments that were scheduled to occur 6 months from the date of the Encounter, up to a maximum of 20 appointments. The data comes from all [place] treatment facilities. Appointment Date/Time Appointment Type Appointme nt Facility Name Dec 24, 2023 05:00 PM AMBULATORY - REHAB MEDICIN E [facility] Feb 02, 2024 11:00 AM AMBULATORY [...] of theEncounter. The data comes from all [place] treatment facilities. Test Date/Time Test Type Test Details Facility Name Nov 27, 2023 02:51 PM Consult Order COMMUNITY CARE-WOUND CARE PC Cons [place] [facility] Jan 05, 2024 08:12 AM Consult Order DERMATOLOG Y OUTPT Cons [place] [facility] Jan 21, 2024 08:00 AM Imaging - General Radiology Order ESOPHAGRAM VIDEO SWALLOW [facility] Advance Directives: All historical and current Section Date Range: From patient's date of to the date document was created. This section includes ALL of a patient's completed or amended [place] Advance and Rescinded Directives. The entries below indicate that a directive exists for the patient, but an actual copy is not included with this document. The data comes from all [place] facilities. Date Advance Directives Provider Source Jan 25, 2004 ADVANCE DIRECTIVE ONEIL KEITH ([facility])
--- OUTSIDE RECORDS SUMMARY | 2024-01-19 13:57 | XMS_ITS | Encounter Summary ---
Author Name Department of Vetera ns Affairs Organization Department of Veter[facility] Affairs Address [address] [place] [address] Support Name Relationship Address Phone BRANDON Next [...] MEDIC ARE SUPPL EMENT Oct 05, 2016 [id number] [phone] RONALDO,P ETER PATIENT [place] SUPPLEMEN [place] MEDIC ARE SUPPL EMENT Oct 05, 2016 [id number] RONALDO,P ETER PATIENT [employer] [place] MEDICARE SUPPLEMEN [place] MEDIC ARE SUPPL EMENT Oct 05, 2016 [id number] RONALDO,P ETER PATIENT MEDICARE (WNR) MEDICARE (M) PART A Nov 05, 2001 PART A [id number] [phone] RONALDO,P ETER PATIENT MEDICARE (WNR) MEDICARE (M) PART B Nov 05, 2001 PART B [id number] [phone] RONALDO,P ETER PATIENT MEDICARE (WNR) MEDICARE (M) PART A Nov 05, 2001 PART A [id number] Hellen HIGGINS NACHOBRANDT PATIENT MEDICARE (WNR) MEDICARE (M) PART B Nov 05, 2001 PART B [id number] [phone] ROGELIOMAUCARLOSHellen ETBRANDT PATIENT Selected Encounter This section includes the information on record at [place] for the Encounter. Date/Time Encounter Type Encounter Description Reason Pro vider Source Jan 05, 2024 08:04 AM Outpatient Encounter [facility] FOLLOW-UP IHE Encounter Template Text not used by [place] Plan of Treatment: Future Appointments (+ 6 months) and Future Tests (+/- 45 days) The Plan of Treatment section includes future care activities for the patient from all [place] treatmentfacilities. This section includes future appointments and future orders which are active, pending or scheduled. Future Appointments This section includes appointments that were scheduled to occur 6 months from the date of the Encounter, up to a maximum of 20 appointments. The data comes from all [facility] facilities. Appointment Date/Time Appointment Type Appointme nt Facility Name Feb 02, 2024 11:00 AM AMBULATORY - MEDICINE [facility] Active, Pending, and Scheduled Orders This section includes a listing of several types of active, pending, and scheduled orders, including clinic medications orders, diagnostic test orders, procedure orders and consult orders; where the start date of the order is 45 days before the date of the Encounter or 45 days after the date of theEncounter. The data comes from all [facility] facilities. Test Date/Time Test Type Test Details Facility Name Nov 27, 2023 02:51 PM Consult Order COMMUNITY CARE-WOUND CARE PC Cons Room [facility] Jan 05, 2024 08:12 AM Consult Order DERMATOLOG Y OUTPT Cons Room [facility]endants[facility] Jan 21, 2024 08:00 AM Imaging - General Radiology Order ESOPHAGRAM VIDEO SWALLOW [facility] Advance Directives: All historical and current Section Date Range: From patient's date of to the date document was created. This section includes ALL of a patient's completed or amended [place] Advance and Rescinded Directives. The entries below indicate that a directive exists for the patient, but an actual copy is not included with this document. The data comes from all [facility]. Date Advance Directives Provider Source Jan 25, 2004 ADVANCE DIRECTIVE ONEIL KEITH ([facility]) Encounter Notes: All associated encounter notes This section contains the clinical notes associated to the Encounter. Date/Time Encounter Note(s) Provider Source Jan 05, 2024 08:04 AM COMMUNITY CUSTODIAL CARE NOTE: LOCAL TITLE: [facility] CARE COORDINATION NOTE STANDARD TITLE: COMMUNITY CUSTODIAL CARE NOTE DATE OF NOTE: JAN 05, 2024@08:04 ENTRY DATE: JAN 05, 2024@08:05:05 AUTHOR: YELITZA BINGHAM EXP COSIGNER: URGENCY: STATUS: COMPLETED [facility] Program Care Coordination WHERE IS SEEKING CARE [place] REFERRING PROVIDER INFORMATION [facility]: [facility] Referring Provider: Tonie Proctor NP CUSTODIAL POINT OF CONTACT FOR APPOINTMENT COORDINATION Name: Maria Isabel LANCE Fax: Email: TYPE OF REFERRAL Specialty Care: dermatology REASON FOR REFERRAL eval L cheek lesion PLAN Provider to review for consult placement. /preethi/ Yelitza Bingham aircraft armorer Health Nurse Coordinator Signed: 01/05/2024 08:06 Receipt Acknowledged By: 01/05/2024 08:07 /preethi/ LYNNE JOHNSON MD HOME-BASED PRIMARY CARE YELITZA BINGHAM [facility]
== END 2024-01-19 13:51 | disposition home or self-care (01) ==
LOC: WOUND 13:50
PROVIDERS: Visit Provider Nurse Practitioner Family
DX: L89.323 Pressure ulcer of left buttock, stage 3 (principal); G20.C Parkinsonism, unspecified; R26.89 Other abnormalities of gait and mobility
CPT/HCPCS: G0463